=== PATIENT | female | born 1945 | race Caucasian/White ===

== ENCOUNTER 2023-01-16 09:10 | Outpatient (OUT) | payer MEDICARE, BC, SELFPAY ==
[2023-01-16 10:05] LABS: Basophils Absolute Auto 0.1 10^3/uL (0.0-0.1); Basophils Percent Auto 0.6 % (0.2-2.0); Eosinophils Absolute Auto 0.5 10^3/uL (0.0-0.7); Eosinophils Percent Auto 5.7 % (0.9-7.0); Hematocrit 38.7 % (36.0-48.0); Hemoglobin 12.1 g/dL (12.0-16.0); Immature Granulocytes Abs Auto 0.04 10^3/uL (0.00-0.03); Immature Granulocytes Pct Auto 0.5 % (0.0-0.5); Lymphocytes Absolute Auto 2.1 10^3/uL (1.2-3.8); Lymphocytes Percent Auto 25.4 % (20.5-60.0); Mean Corpuscular HGB Conc 31.3 g/dL (29.9-35.2); Mean Corpuscular Hemoglobin 28.9 pg (26.7-34.0); Mean Corpuscular Volume 92.6 fL (81.0-99.0); Mean Platelet Volume 9.2 fL (9.5-13.5); Monocytes Absolute Auto 0.6 10^3/uL (0.3-0.8); Monocytes Percent Auto 7.2 % (1.7-12.0); Neutrophils Percent Auto 60.6 % (43.0-75.0); Platelet Count 269 10^3/uL (150-450); Red Blood Count 4.18 10^6/uL (4.20-5.40); Red Cell Distribution Width 13.6 % (11.0-15.0); White Blood Count 8.2 10^3/uL (4.0-11.0)
[2023-01-16 10:21] LABS: Estimated Average Glucose 140 mg/dL; Glycohemoglobin A1C 6.5 % (4.5-6.2)
[2023-01-16 11:36] LABS: Alanine Aminotransferase 18 U/L (14-59); Anion Gap 8.7; Aspartate Amino Transferase 27 U/L (15-37); BUN Creatinine Ratio 18.6; Bilirubin Total 0.5 mg/dL (0.2-1.0); Calcium 9.3 mg/dL (8.5-10.1); Chloride 102 mmol/L (98-107); Estimated GFR (African America 39 (>=60); Estimated GFR (Non-African Ame 32 (>=60); Glucose 114 mg/dL (74-106); Potassium 3.7 mmol/L (3.5-5.1); Sodium 140 mmol/L (136-145)
[2023-01-16 11:37] LABS: Albumin Globulin Ratio 0.9; Albumin Level 3.6 g/dL (3.4-5.0); Alkaline Phosphatase 78 U/L (46-116); Globulin 4.1 g/dL; Total Protein 7.7 g/dL (6.4-8.2)
[2023-01-16 11:38] LABS: Chol HDL Ratio 3.4; Cholesterol 167 mg/dL (<=200); HDL Cholesterol 49 mg/dL (40-60); Thyroid Stimulating Hormone 3.766 uIU/mL (0.358-3.740); Triglycerides 181 mg/dL (<=150); VLDL CHOLESTEROL 36.2 mg/dL
[2023-01-16 12:28] LABS: Free T4 0.82 ng/dL (0.76-1.46)
== END 2023-01-16 09:11 | disposition home or self-care (01) ==
LOC: LAB 09:17
PROVIDERS: PCP Family Medicine; Visit Provider Family Medicine
DX: E78.00 Pure hypercholesterolemia, unspecified (principal); E11.9 Type 2 diabetes mellitus without complications; I10 Essential (primary) hypertension; Z13.29 Encounter for screening for other suspected endocrine disorder
CPT/HCPCS: 36415; 80053; 80061; 83036; 84439; 84443; 85025

== ENCOUNTER 2024-01-16 12:34 | Outpatient (OUT) | payer MEDICARE, BC, SELFPAY ==
[2024-01-16 13:09] LABS: Basophils Percent Auto 0.4 % (0.2-2.0); Eosinophils Absolute Auto 0.6 10^3/uL (0.0-0.7); Eosinophils Percent Auto 6.9 % (0.9-7.0); Hematocrit 33.1 % (36.0-48.0); Hemoglobin 10.1 g/dL (12.0-16.0); Immature Granulocytes Abs Auto 0.07 10^3/uL (0.00-0.03); Immature Granulocytes Pct Auto 0.8 % (0.0-0.5); Lymphocytes Absolute Auto 1.5 10^3/uL (1.2-3.8); Lymphocytes Percent Auto 17.5 % (20.5-60.0); Mean Corpuscular HGB Conc 30.5 g/dL (29.9-35.2); Mean Corpuscular Hemoglobin 26.9 pg (26.7-34.0); Mean Platelet Volume 9.3 fL (9.5-13.5); Monocytes Absolute Auto 0.5 10^3/uL (0.3-0.8); Monocytes Percent Auto 5.8 % (1.7-12.0); Neutrophils Absolute Auto 5.8 10^3/uL (1.4-6.5); Neutrophils Percent Auto 68.6 % (43.0-75.0); Platelet Count 337 10^3/uL (150-450); Red Blood Count 3.76 10^6/uL (4.20-5.40); Red Cell Distribution Width 15.5 % (11.0-15.0); White Blood Count 8.4 10^3/uL (4.0-11.0)
[2024-01-16 13:31] LABS: Estimated Average Glucose 140 mg/dL; Glycohemoglobin A1C 6.5 % (4.5-6.2)
[2024-01-16 14:40] LABS: Alanine Aminotransferase 16 U/L (14-59); Albumin Globulin Ratio 0.8; Albumin Level 3.2 g/dL (3.4-5.0); Alkaline Phosphatase 84 U/L (46-116); Anion Gap 10.9; Aspartate Amino Transferase 17 U/L (15-37); BUN Creatinine Ratio 16.6; Bilirubin Total 0.4 mg/dL (0.2-1.0); Calcium 9.3 mg/dL (8.5-10.1); Carbon Dioxide 30.3 mmol/L (21.0-32.0); Chloride 103 mmol/L (98-107); Chol HDL Ratio 2.9; Cholesterol 131 mg/dL (<=200); Estimated GFR (African America 40 (>=60 mL/min/1.73m^2); Estimated GFR (Non-African Ame 33 (>=60 mL/min/1.73m^2); Glucose 106 mg/dL (74-106); HDL Cholesterol 45 mg/dL (40-60); LDL Cholesterol Calculated 66.4 mg/dL; Potassium 4.2 mmol/L (3.5-5.1); Sodium 140 mmol/L (136-145); Thyroid Stimulating Hormone 5.083 uIU/mL (0.358-3.740); Total Protein 7.2 g/dL (6.4-8.2); Triglycerides 98 mg/dL (<=150); VLDL CHOLESTEROL 19.6 mg/dL
[2024-01-16 15:02] LABS: Free T4 0.79 ng/dL (0.76-1.46)
== END 2024-01-16 12:35 | disposition home or self-care (01) ==
LOC: LAB 12:38
PROVIDERS: PCP Family Medicine; Visit Provider Family Medicine
DX: I12.9 Hypertensive chronic kidney disease with stage 1 through stage 4 chronic kidney disease, or unspecified chronic kidney disease (principal); N18.9 Chronic kidney disease, unspecified; E78.00 Pure hypercholesterolemia, unspecified; E55.9 Vitamin D deficiency, unspecified; E11.9 Type 2 diabetes mellitus without complications; Z13.89 Encounter for screening for other disorder
CPT/HCPCS: 36415; 80053; 80061; 82306; 83036; 84439; 84443; 85025

== ENCOUNTER 2025-01-15 17:05 | Emergency (ER) | payer MEDICARE, BC, SELFPAY ==
--- OUTSIDE RECORDS SUMMARY | 2024-08-16 04:45 | XMS_ITS ---
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 Name Role Phone Ancelmo BOATENG, Agustin Primary Care Provider Unavail able Provider, Lab Unavailable [phone] Encounters Encounter Location Date Provider Diagnosis [facility] [address] [place] [address] 08/16/2024 Lab Provider Plan Of Treatment Next Appt Details Provider Name:Colt araiza, 06/06/2025 09:30:00 AM, [address], [place], [address], Progress Notes * ANGELKrissy KDOB: (79 yo F)Acc No.[id number]:08/16/2024 UNLOCKED PROGRESS NOTE Progress Note Patient: Krissy PASTOR :?Lab ProviderDOB:1945???Age:79 Y???Sex: FemaleDate:08/16/2024Phone:[phone]:[address] [id number]:Agustin Ag MD Subjective: * Chief Complaints: * [address] * Medical History: Objective: * Vitals: Assessment: Plan: * Treatment: * * Electronic signature of Lab Provider on 01/15/2025 at 06:02 PM ESTSign off status: PendingVisit Status:?Verified2 (Verified/Finalized) * Provider: Zoila hare Provider Date: 0 08/16/2024 Generated for Printing/Faxing/eTransmitting on:?01/15/2025 06:02 PM EST
--- OUTSIDE RECORDS SUMMARY | 2024-10-29 07:00 | XMS_ITS ---
Author Organization [facility] in [place] Address [address] [place] [address] Care Team Providers Care Material Clerk Name Role Phone Ancelmo BOATENG, Agustin Primary Care Provider Unavail Colt Hernandez Unavailable [phone] REASON FOR VISIT 6 month f/u testing TC Encounters Encounter Location Date Provider Diagnosis [facility] [address] [facility] [address] [place] [address] 10/29/2024 Colt Mills Plan Of Treatment Next Appt Details Provider Name:Colt araiza, 06/06/2025 09:30:00 AM, [address] [facility], [place], [address], Progress Notes * GRACIELA Krissy KDOB: 4 (79 yo F)Acc No.[id number]:10/29/2024 UNLOCKED PROGRESS NOTE Progress Note Patient: Krissy PASTOR :?Colt Mills MDDOB:1945???Age:79 Y ???Sex:FemaleDate:10/29/2024Phone:[phone]:[address] [id number]:Agustin Ag MD Subjective: * Chief Complaints: * 1 . 6 month f/u testing TC. * Medical History: Objective: * Vitals: Assessment: Plan: * Treatment: * * Electronic signature of Colt Mills MD on 01/15/2025 at 06:02 PM ESTSign off status: PendingVisit Status:?R/S By O/P (Rescheduled by Office/Provider) * Provider: Swapnil Mills MD Date: 0 10/29/2024 Generated for Printing/Faxing/eTransmitting on:?01/15/2025 06:02 PM EST
[2025-01-15] VITALS (48 sets, daily range): BP systolic 91–141; BP diastolic 46–74; PULSE 76–94; TEMP 36.3; O2SAT 80–100; BMI 36.0
--- NOTE | 2025-01-15 17:17 | CT_ITS ---
The [address] [address] Patient Name: LENY OWENS MRN: [id number] date: 1945 Sex: F Assigned Patient Location: ED.MAIN Current Patient Location: ED.MAIN Accession/Order Number: [id number] Exam Date: 01/15/2025 18:10 Report Date: 01/15/2025 19:06 At the request of: CAREN PANIAGUA Procedure: CT cervical spine wo con CT CERVICAL SPINE WITHOUT CONTRAST WITH 3D RECONSTRUCTIONS: CLINICAL HISTORY: fall with head injury COMPARISON: None TECHNIQUE: Spiral axial unenhanced images were obtained through the cervical spine. Sagittal, coronal and 3D volume-rendered reconstructions were also reviewed. This CT exam was performed using one or more following dose reduction techniques: Automated exposure control, adjustment of the mA and/or kV according to patient size, or use of iterative reconstruction technique. FINDINGS: No evidence acute fracture or malalignment. Vertebral heights preserved. Moderate severe disc space disease and endplate osteophytosis C5-C6. Minimal anterolisthesis C4-C5 2 to 3 mm. Otherwise [id number] disc space disease and uncovertebral spurring C3-C4. Multilevel facet arthropathy noted greatest left. Left upper lobe/apical opacity noted. An infectious inflammatory nodule or airspace disease measuring 1.4 x 0[address]/CT cervical spine wo con IMPRESSION: NO CERVICAL SPINE FRACTURE OVERALL MODERATE DEGENERATIVE CHANGES GREATEST C5-C6. LEFT UPPER LOBE PARENCHYMAL OPACITY OR NODULAR IDENTIFIED. CONSIDER FOLLOW-UP TO DOCUMENT RESOLUTION. Impression dictated by: Kodak Trejo M.D. 01/15/2025 7:06 PM Dictation Location: [place] [address] Electronically authenticated by: [id number] Y Date: 01/15/2025 19:06
--- NOTE | 2025-01-15 17:17 | ECG_ITS ---
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 Measurements Intervals [place] Rate: 80 P: 75 NH: 194 QRS: 48 QRSD: 100 T: 35 QT: 378 QTc: 414 Interpretive Statements 1100 Sinus rhythm 4068 Nonspecific Twave abnormality 9130 borderline ECG No previous ECG available for comparison Electronically Signed On 01-15-2025 19:09:33 EST by GABBY QUINTANA M.D.
--- NOTE | 2025-01-15 17:17 | CT_ITS ---
The [address] [address] Patient Name: LENY OWENS MRN: [id number] date: 1945 Sex: F Assigned Patient Location: ED.MAIN Current Patient Location: ED.MAIN Accession/Order Number: [id number] Exam Date: 01/15/2025 18:10 Report Date: 01/15/2025 18:59 At the request of: CAREN PANIAGUA Procedure: CT head/brain wo con CT BRAIN WITHOUT CONTRAST: CLINICAL HISTORY: fall head injury COMPARISON: None TECHNIQUE: Contiguous axial unenhanced images were obtained through the brain. This CT exam was performed using one or more following dose reduction techniques: Automated exposure control, adjustment of the mA and/or kV according to patient size, or use of iterative reconstruction technique. FINDINGS: There is no evidence of midline shift, intra or extra-axial fluid collection, hemorrhage or CT evidence of of acute large vascular lesion stroke. Central involutional changes. Mild to moderate chronic small vessel ischemic disease. There are vascular there There are vascular calcifications identified. 1 cm pineal cyst. Visualized intraorbital contents appear unremarkable. Visualized paranasal sinuses are clear. The surrounding soft tissues are normal. CT/CT head/brain wo con IMPRESSION: NO ACUTE INTRACRANIAL ABNORMALITY. CHRONIC SMALL VESSEL CHANGES. Impression dictated by: Kodak Trejo M.D. 01/15/2025 6:59 PM Dictation Location: [place] [address] Electronically authenticated by: [id number] Y Date: 01/15/2025 18:59
--- NOTE | 2025-01-15 17:17 | XR_ITS ---
The [address] [address] Patient Name: LENY OWENS MRN: [id number] date: 1945 Sex: F Assigned Patient Location: ED.MAIN Current Patient Location: ED.MAIN Accession/Order Number: [id number] Exam Date: 01/15/2025 18:10 Report Date: 01/15/2025 19:18 At the request of: CAREN PANIAGUA Procedure: XR chest 1V PA CHEST: CLINICAL HISTORY: cough COMPARISON: None Mildly enlarged cardiomediastinal silhouette. Minor parenchymal opacities may raise possibility for CHF. Otherwise no airspace disease effusion or pneumothorax. XR/XR chest 1V IMPRESSION: SUSPECTED MINOR CENTRAL CONGESTION. OTHERWISE NEGATIVE ACUTE AIRSPACE DISEASE. Impression dictated by: Kodak Trejo M.D. 01/15/2025 7:18 PM Dictation Location: [place] [address] Electronically authenticated by: [id number] Y Date: 01/15/2025 19:18
--- NOTE | 2025-01-15 17:24 | ED.GENADUL1 ---
Documented by User: SIVA Hayes 01/15/25 19:57 HPI HPI - General Adult General Chief complaint: Fall Stated complaint: WEAKNESS Time Seen by Provider: 01/15/25 17:12 Source: patient Mode of arrival: ambulance Limitations: no limitations History of Present Illness HPI narrative: Patient is a 79-year-old female who presents via EMS for evaluation of generalized weakness and multiple falls. Patient alert and oriented to person and place. She was reported to have a fall at home where she lives with her and required assistance to stand but refused to be evaluated at that time. She fell again this afternoon reportedly striking her head. The patient does not recall hitting her head, and denies any headache. She admits to feeling generally weak but denies pain other than soreness in her left labial region. Patient does not report any fevers or chills with discussion at the bedside I am concerned that she is a somewhat poor historian in the short term events but she acknowledges that she has not taken her diuretic pills in the last 4 days and has been experiencing some shortness of breath with associated cough and congestion. Patient denies any nausea vomiting or diarrhea. She is reported to be a full code. Location: Reports head and genitals (left labia) Related Data Home Medications ?Medication ?Instructions ?Recorded ?Confirmed aspirin 81 mg tablet,delayed 81 mg PO DAILY 01/15/25 01/15/25 release (Adult Low Dose Aspirin) cholecalciferol (vitamin D3) 50 50 mcg PO DAILY 01/15/25 01/15/25 mcg (2,000 unit) tablet (Vitamin D3) furosemide 40 mg tablet 40 mg PO QDAY 01/15/25 01/15/25 loratadine 10 mg tablet (Claritin) 10 mg PO DAILY 01/15/25 01/15/25 metformin 500 mg tablet,extended 500 mg PO QDAY 01/15/25 01/15/25 release 24 hr sertraline 50 mg tablet 50 mg PO QDAY 01/15/25 01/15/25 simvastatin 20 mg tablet 20 mg PO QDAY 01/15/25 01/15/25 Allergies Allergy/AdvReac Type Severity Reaction Status Date / Time No Known Drug Allergies Allergy Verified 01/15/25 17:07 Review of Systems ROS Constitutional Denies: fever or chills Eyes Denies: change in vision or blurry vision Cardiovascular Reports: edema and swelling of feet/ankles; Denies: chest pain or palpitations Respiratory Reports: shortness of breath, cough and chest congestion; Denies: coughing up blood Gastrointestinal Reports: other (pt reports black stool in the past . family confirms recent BMS are brown, ); Denies: abdominal pain, nausea, vomiting or diarrhea Genitourinary Denies: painful urination or urinary frequency Musculoskeletal Denies: back pain, neck pain or extremity pain Integumentary/Breast Reports: other (Abscess left labia) Neurological Denies: headache or numbness in extremities Psychiatric Denies: anxiety or mood swings PFSH PFSH Social History Little interest or pleasure in doing things: not at all Feeling down, depressed, or hopeless: not at all Exam Narrative Exam Narrative: Nurses note and vital signs reviewed and patient is hypoxic. General: The patient appears well and in no apparent distress. Patient is resting comfortably on cart. GCS = 15. Skin: Warm, dry, no pallor noted. No evidence of rash. Patient has an 2.5cm by 2 cm firm abscess to the left labia that has multiple circular openings with proteinaceous material around the rim as if it drained but not actively draining. The nurse did note there was some discharge on her undergarment upon arrival. I do not appreciate any erythema in the groin fold but patient does have a prominent pannus. The area is notably tender to touch Head: Normocephalic, atraumatic, Neck: Supple, trachea mid-line, no tenderness, no lymphadenopathy. Full ROM and no cervical spinal tenderness. The patient has no step-offs or crepitus noted Eyes: PERRLA, EOMI, subconjunctival pallor ENT: External inspection unremarkable Cardiovascular: Regular Rate and Rhythm Respiratory: Patient is speaking in full sentences there is slight expiratory wheeze and more rhonchorous lung sounds in the left lower lung field. Chest Wall: no tenderness, no flail chest, contusion, abrasion, or signs of trauma. Back: Back has no evidence of trauma, including contusion, abrasion, swelling or ecchymosis. The patient had no evidence of step-offs or creptitace noted. No tenderness to palpation. Negative straight leg raise bilaterally. Musculoskeletal: normal ROM, no tenderness, 1+ edema bilateral mildly pitting appears chronic . pulses at femoral, DP, PT, and popiteal were 2+ bilaterally. Moves all four extremities in all modalities with 5/5 strength. induration right anterior groin from possible prior vascular surgeries/ GI: Normal bowel sounds, no tenderness to palpation, No rebound, guarding, or rigidity noted. Rectal: Good rectal tone: brown soft stool. no gross blood. noninflamed hemorrhoid. Neurological: Alert and oriented person place and recent events that she fell. Psychiatric: Cooperative, smilling. Constitutional Vital Signs, click to edit/add: Last Vital Signs Temp 97.4 F L 01/15/25 17:08 Pulse 83 01/15/25 21:38 Resp 24 H 01/15/25 21:38 BP 111/67 01/15/25 19:14 Pulse Ox 98 01/15/25 21:38 O2 Del Method Simple Mask 01/15/25 21:38 O2 Flow Rate 6 01/15/25 21:38 Course Vital Signs Vital signs: Vital Signs Temperature 97.4 F L 01/15/25 17:08 Pulse Rate 82 01/15/25 17:08 Respiratory Rate 18 01/15/25 17:08 Blood Pressure 93/46 L 01/15/25 17:08 Pulse Oximetry 88 L 01/15/25 17:08 Oxygen Delivery Method Room Air 01/15/25 17:08 Temperature 97.4 F L 01/15/25 17:08 Pulse Rate 83 01/15/25 21:38 Respiratory Rate 24 H 01/15/25 21:38 Blood Pressure 111/67 01/15/25 19:14 Pulse Oximetry 98 01/15/25 21:38 Oxygen Delivery Method Simple Mask 01/15/25 21:38 Oxygen Delivery Flow Rate 6 01/15/25 21:38 Medical Decision Making [facility] Narrative Medical decision making narrative: Patient presents to the ER with generalized weakness and fall x 2 at home there is evidence of hypoxia shortness of breath on exertion patient admits that she feels generally weak. only estimated to be on ground for 30 mins this am. There was reported head injury with her second fall and a CT will be performed of her head and neck. Her mentation appears grossly baseline. She is mildly hypotensive and we given 1 L fluid bolus IV challenge but we will hold on additional fluid as she has been off her diuretic pill for the past 4 days with some fluid retention noted. She does have prominent left lung sounds concerning for possible pneumonia or fluid retention patient also has evidence of a left external labial abscess that has been opened and drained with notable tenderness and induration at the base, given the possibility for sepsis or infectious source as this has been going on for an undetermined period of time a wound culture will be obtained and further imaging will be conducted to rule out any type of fistula or other concern such as necrotizing fasciitis. We will monitor patient's preliminary labs and response to 1 L fluid challenge. Patient was noted to be 88% on room air, she is not reported to be on home oxygen and was able to achieve 95% on 2 L nasal cannula. We also will attempt a DuoNeb treatment. Blood cult x2 taken. Patient's daughter at the bedside, reports patient did take her water pill today she had not taken it the preceding days because it makes her pee more. She is definitely more weaker today per daughter at the bedside. She expressed concerns that she has had prior rupture of her abdominal aortic aneurysm with repair at [facility] x 2. And at her last follow-up 6 weeks ago advised that the aneurysm was again leaking but they recommended a 6-month follow-up because surgery would be significantly invasive. acute kidney unable to get IV contrast studies in the setting of current risk/ benefits with known history, Non contrast study obtained of Abdomen and pelvis. Fecal occult blood was negative. Medical Records Medical records reviewed: Yes I reviewed the patient's medical records Lab Data Lab results reviewed: Yes I reviewed the patient's lab results Labs: Lab Results 01/15/25 01/15/25 01/15/25 Range/Units 17:33 17:41 18:10 WBC 14.0 H (4.0-11.0) 10^3/uL RBC 3.55 L (4.20-5.40) 10^6/uL Hgb 8.6 L (12.0-16.0) g/dL Hct 27.5 L (36.0-48.0) % MCV 77.5 L (81.0-99.0) fL MCH 24.2 L (26.7-34.0) pg MCHC 31.3 (29.9-35.2) g/dL RDW 17.8 H (11.0-15.0) % Plt Count 168 (150-450) 10^3/uL MPV 10.9 (9.5-13.5) fL Neut % (Auto) 92.7 H (43.0-75.0) % Lymph % (Auto) 3.1 L (20.5-60.0) % [place] % (Auto) 3.2 (1.7-12.0) % Eos % (Auto) 0.0 L (0.9-7.0) % Baso % (Auto) 0.1 L (0.2-2.0) % Neut # (Auto) 13.0 H (1.4-6.5) 10^3/uL Lymph # (Auto) 0.4 L (1.2-3.8) 10^3/uL [place] # (Auto) 0.5 (0.3-0.8) 10^3/uL Eos # (Auto) 0.0 (0.0-0.7) 10^3/uL Baso # (Auto) 0.0 (0.0-0.1) 10^3/uL Abs Immat Gran (auto) 0.12 H (0.00-0.03) 10^3/uL Imm/Tot Granulo (auto) 0.9 H (0.0-0.5) % PT 13.2 H (9.0-11.6) sec INR 1.28 APTT 34.1 (22.3-36.2) sec Sodium 128 L (136-145) mmol/L Potassium 3.7 (3.5-5.1) mmol/L Chloride 94 L (98-107) mmol/L Carbon Dioxide 23.6 (21.0-32.0) mmol/L Anion Gap 14.1 BUN 46.0 H (7.0-18.0) mg/dL Creatinine 2.46 H (0.55-1.02) mg/dL Est GFR ( Amer) 23 L (>=60 mL/min/1.73m^2) Est GFR (Non-Af Amer) 19 L (>=60 mL/min/1.73m^2) BUN/Creatinine Ratio 18.7 Glucose 154 H (74-106) mg/dL Lactate 1.8 (0.4-2.0) mmol/L Calcium 8.5 (8.5-10.1) mg/dL Total Bilirubin 1.1 H (0.2-1.0) mg/dL AST 129 H (15-37) U/L ALT 48 (14-59) U/L Alkaline Phosphatase 83 (46-116) U/L Total Creatine Kinase 1038 H* (26-192) U/L CK-MB (CK-2) 5.36 H* (<=3.60) ng/mL Myoglobin 2853 H* (9-82) ng/mL Troponin I High Sens 389.0 H* (4.0-51.3) pg/mL NT-Pro-B Natriuret Pep >99395.0 H* (<=1800.0) pg/mL Total Protein 6.7 (6.4-8.2) g/dL Albumin 2.7 L (3.4-5.0) g/dL Globulin 4.0 g/dL Albumin/Globulin Ratio 0.7 Urine Color Dk. yellow (YELLOW) Urine Clarity Clear (CLEAR) Urine pH 7.0 (5.0-9.0) Ur Specific Jackson 1.020 (1.005-1.025) Urine Protein 100 A (NEG/TRACE) mg/dL Urine Glucose (UA) Negative (NEGATIVE) mg/dL Urine Ketones Negative (NEGATIVE) mg/dL Urine Occult Blood Negative (NEGATIVE) Urine Nitrite Negative (NEGATIVE) Urine Bilirubin Small A (NEGATIVE) Urine Urobilinogen 2.0 A (0.2-1.0) EU/dL Ur Leukocyte Esterase Negative (NEGATIVE) Urine RBC 0-2 (0-2) #/HPF Urine WBC 0-2 A (NONE SEEN) #/HPF Ur Squamous Epith Cells Few A (NONE/RARE) #/LPF Urine Crystals None seen (None Seen) #/HPF Urine Bacteria Small A (NONE SEEN) #/HPF Urine Casts None seen (NONE SEEN) #/LPF Urine Mucus None seen (NONE SEEN) Ur Culture Indicated? Yes-[facility] Stool Occult Blood Influenza Type A Ag Negative Influenza Type B Ag Negative SARS-CoV-2 Ag (CV2AG) Negative (NEGATIVE) Blood Type A Positive Antibody Screen Negative 01/15/25 01/15/25 Range/Units 18:45 18:55 WBC (4.0-11.0) 10^3/uL RBC (4.20-5.40) 10^6/uL Hgb (12.0-16.0) g/dL Hct (36.0-48.0) % MCV (81.0-99.0) fL MCH (26.7-34.0) pg MCHC (29.9-35.2) g/dL RDW (11.0-15.0) % Plt Count (150-450) 10^3/uL MPV (9.5-13.5) fL Neut % (Auto) (43.0-75.0) % Lymph % (Auto) (20.5-60.0) % [place] % (Auto) (1.7-12.0) % Eos % (Auto) (0.9-7.0) % Baso % (Auto) (0.2-2.0) % Neut # (Auto) (1.4-6.5) 10^3/uL Lymph # (Auto) (1.2-3.8) 10^3/uL [place] # (Auto) (0.3-0.8) 10^3/uL Eos # (Auto) (0.0-0.7) 10^3/uL Baso # (Auto) (0.0-0.1) 10^3/uL Abs Immat Gran (auto) (0.00-0.03) 10^3/uL Imm/Tot Granulo (auto) (0.0-0.5) % PT (9.0-11.6) sec INR APTT (22.3-36.2) sec Sodium (136-145) mmol/L Potassium (3.5-5.1) mmol/L Chloride (98-107) mmol/L Carbon Dioxide (21.0-32.0) mmol/L Anion Gap BUN (7.0-18.0) mg/dL Creatinine (0.55-1.02) mg/dL Est GFR ( Amer) (>=60 mL/min/1.73m^2) Est GFR (Non-Af Amer) (>=60 mL/min/1.73m^2) BUN/Creatinine Ratio Glucose (74-106) mg/dL Lactate (0.4-2.0) mmol/L Calcium (8.5-10.1) mg/dL Total Bilirubin (0.2-1.0) mg/dL AST (15-37) U/L ALT (14-59) U/L Alkaline Phosphatase (46-116) U/L Total Creatine Kinase (26-192) U/L CK-MB (CK-2) (<=3.60) ng/mL Myoglobin (9-82) ng/mL Troponin I High Sens 466.9 H* (4.0-51.3) pg/mL NT-Pro-B Natriuret Pep (<=1800.0) pg/mL Total Protein (6.4-8.2) g/dL Albumin (3.4-5.0) g/dL Globulin g/dL Albumin/Globulin Ratio Urine Color (YELLOW) Urine Clarity (CLEAR) Urine pH (5.0-9.0) Ur Specific Jackson (1.005-1.025) Urine Protein (NEG/TRACE) mg/dL Urine Glucose (UA) (NEGATIVE) mg/dL Urine Ketones (NEGATIVE) mg/dL Urine Occult Blood (NEGATIVE) Urine Nitrite (NEGATIVE) Urine Bilirubin (NEGATIVE) Urine Urobilinogen (0.2-1.0) EU/dL Ur Leukocyte Esterase (NEGATIVE) Urine RBC (0-2) #/HPF Urine WBC (NONE SEEN) #/HPF Ur Squamous Epith Cells (NONE/RARE) #/LPF Urine Crystals (None Seen) #/HPF Urine Bacteria (NONE SEEN) #/HPF Urine Casts (NONE SEEN) #/LPF Urine Mucus (NONE SEEN) Ur Culture Indicated? Stool Occult Blood Negative Influenza Type A Ag Influenza Type B Ag SARS-CoV-2 Ag (CV2AG) (NEGATIVE) Blood Type Antibody Screen Imaging Data CT scan - head: Radiologist's impression: ITS Impressions Cervical Spine CT 01/15/25 17:17 IMPRESSION: NO CERVICAL SPINE FRACTURE OVERALL MODERATE DEGENERATIVE CHANGES GREATEST C5-C6. LEFT UPPER LOBE PARENCHYMAL OPACITY OR NODULAR IDENTIFIED. CONSIDER FOLLOW-UP TO DOCUMENT RESOLUTION. Impression dictated by: Kodak Trejo M.D. 01/15/2025 7:06 PM Dictation Location: [place] [id number] Electronically authenticated by: [id number] Y Date: 01/15/2025 19:06 Chest X-Ray 01/15/25 17:17 IMPRESSION: SUSPECTED MINOR CENTRAL CONGESTION. OTHERWISE NEGATIVE ACUTE AIRSPACE DISEASE. Impression dictated by: Kodak Trejo M.D. 01/15/2025 7:18 PM Dictation Location: [facility]--29 Electronically authenticated by: [id number] Y Date: 01/15/2025 19:[address] 01/15/25 17:17 IMPRESSION: NO ACUTE INTRACRANIAL ABNORMALITY. CHRONIC SMALL VESSEL CHANGES. Impression dictated by: Kodak Trejo M.D. 01/15/2025 6:59 PM Dictation Location: [facility]formerly known [facility] Electronically authenticated by: [id number] Y Date: 01/15/2025 18:59 ECG Data Attestation: I personally reviewed and interpreted this ECG as follows: Interpretation: Prelim EKG interpretation: normal sinus rhythm 80 bpm, no ectopy, no ST segment elevation, normal axis. Discharge Plan Discharge Chief Complaint: Fall Clinical Impression: Rhabdomyolysis, CHF (congestive heart failure), Elevated troponin, Hyponatremia, Leaking abdominal aortic aneurysm, Anemia, Abscess of left genital labia, Emphysema, unspecified, Acute kidney injury Patient Disposition: [facility] Time of Disposition Decision: 19:41 Discharge Location: [facility] Documented by User: Kj Campos 01/15/25 21:47 HPI HPI - General Adult General Chief complaint: Fall Stated complaint: WEAKNESS Time Seen by Provider: 01/15/25 17:12 Related Data Home Medications ?Medication ?Instructions ?Recorded ?Confirmed aspirin 81 mg tablet,delayed 81 mg PO DAILY 01/15/25 01/15/25 release (Adult Low Dose Aspirin) cholecalciferol (vitamin D3) 50 50 mcg PO DAILY 01/15/25 01/15/25 mcg (2,000 unit) tablet (Vitamin D3) furosemide 40 mg tablet 40 mg PO QDAY 01/15/25 01/15/25 loratadine 10 mg tablet (Claritin) 10 mg PO DAILY 01/15/25 01/15/25 metformin 500 mg tablet,extended 500 mg PO QDAY 01/15/25 01/15/25 release 24 hr sertraline 50 mg tablet 50 mg PO QDAY 01/15/25 01/15/25 simvastatin 20 mg tablet 20 mg PO QDAY 01/15/25 01/15/25 Allergies Allergy/AdvReac Type Severity Reaction Status Date / Time No Known Drug Allergies Allergy Verified 01/15/25 17:07 PFSH PFSH Social History Little interest or pleasure in doing things: not at all Feeling down, depressed, or hopeless: not at all Exam Constitutional Vital Signs, click to edit/add: Last Vital Signs Temp 97.4 F L 01/15/25 17:08 Pulse 83 01/15/25 21:38 Resp 24 H 01/15/25 21:38 BP 111/67 01/15/25 19:14 Pulse Ox 98 01/15/25 21:38 O2 Del Method Simple Mask 01/15/25 21:38 O2 Flow Rate 6 01/15/25 21:38 Course Vital Signs Vital signs: Vital Signs Temperature 97.4 F L 01/15/25 17:08 Pulse Rate 82 01/15/25 17:08 Respiratory Rate 18 01/15/25 17:08 Blood Pressure 93/46 L 01/15/25 17:08 Pulse Oximetry 88 L 01/15/25 17:08 Oxygen Delivery Method Room Air 01/15/25 17:08 Temperature 97.4 F L 01/15/25 17:08 Pulse Rate 83 01/15/25 21:38 Respiratory Rate 24 H 01/15/25 21:38 Blood Pressure 111/67 01/15/25 19:14 Pulse Oximetry 98 01/15/25 21:38 Oxygen Delivery Method Simple Mask 01/15/25 21:38 Oxygen Delivery Flow Rate 6 01/15/25 21:38 Medical Decision Making [facility] Narrative Medical decision making narrative: Patient presents to the ER with generalized weakness and fall x 2 at home there is evidence of hypoxia shortness of breath on exertion patient admits that she feels generally weak. only estimated to be on ground for 30 mins this am. There was reported head injury with her second fall and a CT will be performed of her head and neck. Her mentation appears grossly baseline. She is mildly hypotensive and we given 1 L fluid bolus IV challenge but we will hold on additional fluid as she has been off her diuretic pill for the past 4 days with some fluid retention noted. She does have prominent left lung sounds concerning for possible pneumonia or fluid retention patient also has evidence of a left external labial abscess that has been opened and drained with notable tenderness and induration at the base, given the possibility for sepsis or infectious source as this has been going on for an undetermined period of time a wound culture will be obtained and further imaging will be conducted to rule out any type of fistula or other concern such as necrotizing fasciitis. We will monitor patient's preliminary labs and response to 1 L fluid challenge. Patient was noted to be 88% on room air, she is not reported to be on home oxygen and was able to achieve 95% on 2 L nasal cannula. We also will attempt a DuoNeb treatment. Blood cult x2 taken. Patient's daughter at the bedside, reports patient did take her water pill today she had not taken it the preceding days because it makes her pee more. She is definitely more weaker today per daughter at the bedside. She expressed concerns that she has had prior rupture of her abdominal aortic aneurysm with repair at [facility] x 2. And at her last follow-up 6 weeks ago advised that the aneurysm was again leaking but they recommended a 6-month follow-up because surgery would be significantly invasive. acute kidney unable to get IV contrast studies in the setting of current risk/ benefits with known history, Non contrast study obtained of Abdomen and pelvis. Fecal occult blood was negative. Patient was found to have elevated CK, elevated CK-MB, elevated myoglobin, consistent with acute rhabdomyolysis -in addition to elevated BUN/creatinine consistent with acute kidney injury. Attending physician note -the PA assigned patient out to in at 8 PM. Due to the prior affiliation with [facility] in [place], the patient's family was requested to be transferred to that facility since she is not able to stay at this facility due to the leaking abdominal aneurysm that would not be able to be treated here should she deteriorate. Additionally we lack renal coverage. I spoke with the hospitalist on-call, Dr. Mccloud, who accept this patient's transfer to their facility after we discussed the patient's multiple diagnoses and issues. Once bed assignment was obtained, arrangements were made for the patient be transported by ambulance to [facility]. Family is agreeable to this transfer. Of note, when the patient fell asleep, her oxygenation decreased. We put her on a simple mask and gave her an albuterol treatment. Additionally I gave her an IV dose of Solu-Medrol 125 mg due to her smoking history and possible history of COPD. Patient tolerated treatment well and was stable for transfer. - DO Isabella Lab Data Labs: Lab Results 01/15/25 01/15/25 01/15/25 Range/Units 17:33 17:41 18:10 WBC 14.0 H (4.0-11.0) 10^3/uL RBC 3.55 L (4.20-5.40) 10^6/uL Hgb 8.6 L (12.0-16.0) g/dL Hct 27.5 L (36.0-48.0) % MCV 77.5 L (81.0-99.0) fL MCH 24.2 L (26.7-34.0) pg MCHC 31.3 (29.9-35.2) g/dL RDW 17.8 H (11.0-15.0) % Plt Count 168 (150-450) 10^3/uL MPV 10.9 (9.5-13.5) fL Neut % (Auto) 92.7 H (43.0-75.0) % Lymph % (Auto) 3.1 L (20.5-60.0) % [place] % (Auto) 3.2 (1.7-12.0) % Eos % (Auto) 0.0 L (0.9-7.0) % Baso % (Auto) 0.1 L (0.2-2.0) % Neut # (Auto) 13.0 H (1.4-6.5) 10^3/uL Lymph # (Auto) 0.4 L (1.2-3.8) 10^3/uL [place] # (Auto) 0.5 (0.3-0.8) 10^3/uL Eos # (Auto) 0.0 (0.0-0.7) 10^3/uL Baso # (Auto) 0.0 (0.0-0.1) 10^3/uL Abs Immat Gran (auto) 0.12 H (0.00-0.03) 10^3/uL Imm/Tot Granulo (auto) 0.9 H (0.0-0.5) % PT 13.2 H (9.0-11.6) sec INR 1.28 APTT 34.1 (22.3-36.2) sec Sodium 128 L (136-145) mmol/L Potassium 3.7 (3.5-5.1) mmol/L Chloride 94 L (98-107) mmol/L Carbon Dioxide 23.6 (21.0-32.0) mmol/L Anion Gap 14.1 BUN 46.0 H (7.0-18.0) mg/dL Creatinine 2.46 H (0.55-1.02) mg/dL Est GFR ( Amer) 23 L (>=60 mL/min/1.73m^2) Est GFR (Non-Af Amer) 19 L (>=60 mL/min/1.73m^2) BUN/Creatinine Ratio 18.7 Glucose 154 H (74-106) mg/dL Lactate 1.8 (0.4-2.0) mmol/L Calcium 8.5 (8.5-10.1) mg/dL Total Bilirubin 1.1 H (0.2-1.0) mg/dL AST 129 H (15-37) U/L ALT 48 (14-59) U/L Alkaline Phosphatase 83 (46-116) U/L Total Creatine Kinase 1038 H* (26-192) U/L CK-MB (CK-2) 5.36 H* (<=3.60) ng/mL Myoglobin 2853 H* (9-82) ng/mL Troponin I High Sens 389.0 H* (4.0-51.3) pg/mL NT-Pro-B Natriuret Pep >94771.0 H* (<=1800.0) pg/mL Total Protein 6.7 (6.4-8.2) g/dL Albumin 2.7 L (3.4-5.0) g/dL Globulin 4.0 g/dL Albumin/Globulin Ratio 0.7 Urine Color Dk. yellow (YELLOW) Urine Clarity Clear (CLEAR) Urine pH 7.0 (5.0-9.0) Ur Specific Jackson 1.020 (1.005-1.025) Urine Protein 100 A (NEG/TRACE) mg/dL Urine Glucose (UA) Negative (NEGATIVE) mg/dL Urine Ketones Negative (NEGATIVE) mg/dL Urine Occult Blood Negative (NEGATIVE) Urine Nitrite Negative (NEGATIVE) Urine Bilirubin Small A (NEGATIVE) Urine Urobilinogen 2.0 A (0.2-1.0) EU/dL Ur Leukocyte Esterase Negative (NEGATIVE) Urine RBC 0-2 (0-2) #/HPF Urine WBC 0-2 A (NONE SEEN) #/HPF Ur Squamous Epith Cells Few A (NONE/RARE) #/LPF Urine Crystals None seen (None Seen) #/HPF Urine Bacteria Small A (NONE SEEN) #/HPF Urine Casts None seen (NONE SEEN) #/LPF Urine Mucus None seen (NONE SEEN) Ur Culture Indicated? Yes-[facility] Stool Occult Blood Influenza Type A Ag Negative Influenza Type B Ag Negative SARS-CoV-2 Ag (CV2AG) Negative (NEGATIVE) Blood Type A Positive Antibody Screen Negative 01/15/25 01/15/25 Range/Units 18:45 18:55 WBC (4.0-11.0) 10^3/uL RBC (4.20-5.40) 10^6/uL Hgb (12.0-16.0) g/dL Hct (36.0-48.0) % MCV (81.0-99.0) fL MCH (26.7-34.0) pg MCHC (29.9-35.2) g/dL RDW (11.0-15.0) % Plt Count (150-450) 10^3/uL MPV (9.5-13.5) fL Neut % (Auto) (43.0-75.0) % Lymph % (Auto) (20.5-60.0) % [place] % (Auto) (1.7-12.0) % Eos % (Auto) (0.9-7.0) % Baso % (Auto) (0.2-2.0) % Neut # (Auto) (1.4-6.5) 10^3/uL Lymph # (Auto) (1.2-3.8) 10^3/uL [place] # (Auto) (0.3-0.8) 10^3/uL Eos # (Auto) (0.0-0.7) 10^3/uL Baso # (Auto) (0.0-0.1) 10^3/uL Abs Immat Gran (auto) (0.00-0.03) 10^3/uL Imm/Tot Granulo (auto) (0.0-0.5) % PT (9.0-11.6) sec INR APTT (22.3-36.2) sec Sodium (136-145) mmol/L Potassium (3.5-5.1) mmol/L Chloride (98-107) mmol/L Carbon Dioxide (21.0-32.0) mmol/L Anion Gap BUN (7.0-18.0) mg/dL Creatinine (0.55-1.02) mg/dL Est GFR ( Amer) (>=60 mL/min/1.73m^2) Est GFR (Non-Af Amer) (>=60 mL/min/1.73m^2) BUN/Creatinine Ratio Glucose (74-106) mg/dL Lactate (0.4-2.0) mmol/L Calcium (8.5-10.1) mg/dL Total Bilirubin (0.2-1.0) mg/dL AST (15-37) U/L ALT (14-59) U/L Alkaline Phosphatase (46-116) U/L Total Creatine Kinase (26-192) U/L CK-MB (CK-2) (<=3.60) ng/mL Myoglobin (9-82) ng/mL Troponin I High Sens 466.9 H* (4.0-51.3) pg/mL NT-Pro-B Natriuret Pep (<=1800.0) pg/mL Total Protein (6.4-8.2) g/dL Albumin (3.4-5.0) g/dL Globulin g/dL Albumin/Globulin Ratio Urine Color (YELLOW) Urine Clarity (CLEAR) Urine pH (5.0-9.0) Ur Specific Jackson (1.005-1.025) Urine Protein (NEG/TRACE) mg/dL Urine Glucose (UA) (NEGATIVE) mg/dL Urine Ketones (NEGATIVE) mg/dL Urine Occult Blood (NEGATIVE) Urine Nitrite (NEGATIVE) Urine Bilirubin (NEGATIVE) Urine Urobilinogen (0.2-1.0) EU/dL Ur Leukocyte Esterase (NEGATIVE) Urine RBC (0-2) #/HPF Urine WBC (NONE SEEN) #/HPF Ur Squamous Epith Cells (NONE/RARE) #/LPF Urine Crystals (None Seen) #/HPF Urine Bacteria (NONE SEEN) #/HPF Urine Casts (NONE SEEN) #/LPF Urine Mucus (NONE SEEN) Ur Culture Indicated? Stool Occult Blood Negative Influenza Type A Ag Influenza Type B Ag SARS-CoV-2 Ag (CV2AG) (NEGATIVE) Blood Type Antibody Screen Imaging Data CT scan - head: Radiologist's impression: ITS Impressions Cervical Spine CT 01/15/25 17:17 IMPRESSION: NO CERVICAL SPINE FRACTURE OVERALL MODERATE DEGENERATIVE CHANGES GREATEST C5-C6. LEFT UPPER LOBE PARENCHYMAL OPACITY OR NODULAR IDENTIFIED. CONSIDER FOLLOW-UP TO DOCUMENT RESOLUTION. Impression dictated by: Kodak Trejo M.D. 01/15/2025 7:06 PM Dictation Location: [facility] Electronically authenticated by: [id number] Y Date: 01/15/2025 19:06 Chest X-Ray 01/15/25 17:17 IMPRESSION: SUSPECTED MINOR CENTRAL CONGESTION. OTHERWISE NEGATIVE ACUTE AIRSPACE DISEASE. Impression dictated by: Kodak Trejo M.D. 01/15/2025 7:18 PM Dictation Location: [facility] Electronically authenticated by: [id number] Y Date: 01/15/2025 19:[address] 01/15/25 17:17 IMPRESSION: NO ACUTE INTRACRANIAL ABNORMALITY. CHRONIC SMALL VESSEL CHANGES. Impression dictated by: Kodak Trejo M.D. 01/15/2025 6:59 PM Dictation Location: [facility] Electronically authenticated by: [id number] Y Date: 01/15/2025 18:59 Discharge Plan Discharge Chief Complaint: Fall Clinical Impression: Rhabdomyolysis, CHF (congestive heart failure), Elevated troponin, Hyponatremia, Leaking abdominal aortic aneurysm, Anemia, Abscess of left genital labia, Emphysema, unspecified, Acute kidney injury Patient Disposition: [facility] Time of Disposition Decision: 19:41 Discharge Location: [facility]
[2025-01-15] MEDS: 0.9 % SODIUM CHLORIDE 1,000 ML 999 ML IV (17:47)
--- NOTE | 2025-01-15 17:48 | CT_ITS ---
The [address] [address] Patient Name: LENY OWENS MRN: [id number] date: 1945 Sex: F Assigned Patient Location: ED.MAIN Current Patient Location: ED.MAIN Accession/Order Number: [id number] Exam Date: 01/15/2025 18:10 Report Date: 01/15/2025 19:18 At the request of: CAREN PANIAGUA Procedure: CT abdomen pelvis wo con CT ABDOMEN AND PELVIS WITHOUT INTRAVENOUS CONTRAST: CLINICAL HISTORY: History aneurysm , known leak, groin abscess COMPARISON: 08/26/2015 TECHNIQUE: Spiral images were obtained through the abdomen and pelvis without intravenous contrast. This CT exam was performed using one or more following dose reduction techniques: Automated exposure control, adjustment of the mA and/or kV according to patient size, or use of iterative reconstruction technique. FINDINGS: Motion degradation. Right lower lobe nodule 1 cm size. Lung bases grossly clear with minimal bibasilar atelectasis or scarring. Cardiomegaly. Coronary disease. Small hiatal hernia. Evaluation degraded due to lack contrast. Suspected layering sludge within the gallbladder. Otherwise the noncontrast appearance of liver, spleen, adrenals, kidneys, pancreas unremarkable. Increase in size of the aneurysmal sac noted possibly related to reportedly known leak, this measures 12.5 x 10.8 cm in size. Prior stent graft repair noted. Correlation with prior exams recommended given the history of known leak. Otherwise no free air or free fluid. Diffuse vascular disease identified. Mild retained stool. No bowel obstruction. Colonic diverticulosis identified. Uterus absent. There is lobulated soft tissue anterior to the right femoral artery noted 1.5 x 1.6 cm size. Unclear if this represents posttreatment changes. No definite groin fluid collection within the [id number]. Multilevel degenerative changes identified throughout the lumbar spine. Degenerative changes both hips. .IMPRESSION: 1 cm right lower lobe nodule. Correlation with prior imaging recommended. Otherwise, consider follow-up based ON Fleischner Society recreations. Cardiomegaly. Nodular soft tissue anterior to the right femoral artery at level of the groin noted unclear if this is postsurgical changes. Correlation with prior imaging recommended. Consider Doppler ultrasound correlation Postsurgical changes status post aortic aneurysm repair with ileal aortic stent grafting. Increase in size in size of the aneurysm sac size 2015 comparison. Correlation with site of known leak and prior imaging recommended. No definite loculated collections within the groin. Colonic diverticulosis. Otherwise no definite evidence of acute inflammatory process or bowel obstruction. Impression dictated by: Kodak Trejo M.D. 01/15/2025 7:18 PM Dictation Location: [facility] Electronically authenticated by: [id number] Y Date: 01/15/2025 19:18
[2025-01-15 17:50] LABS: Hematocrit 27.5 % (36.0-48.0); Hemoglobin 8.6 g/dL (12.0-16.0); Immature Granulocytes Abs Auto 0.12 10^3/uL (0.00-0.03); Immature Granulocytes Pct Auto 0.9 % (0.0-0.5); Lymphocytes Absolute Auto 0.4 10^3/uL (1.2-3.8); Mean Corpuscular HGB Conc 31.3 g/dL (29.9-35.2); Mean Corpuscular Hemoglobin 24.2 pg (26.7-34.0); Mean Corpuscular Volume 77.5 fL (81.0-99.0); Platelet Count 168 10^3/uL (150-450); Red Blood Count 3.55 10^6/uL (4.20-5.40); White Blood Count 14.0 10^3/uL (4.0-11.0)
--- OUTSIDE RECORDS SUMMARY | 2025-01-15 17:59 | XMS_ITS | CCD ---
Author Organization [facility] Care Team Providers Care Radio Despatcher Name Role Phone PAUL LAST Admitting Unavailable PAUL LAST Attending Unavailable AMIE AG Referring Unavailable AMIE AG Primary Care Unavailable [place] Procedure Practitioner Unavailab PAUL Crawford Surgeon Unavailable PAUL LAST Admitting Unavailable PAUL LAST Attending Unavailable AMIE AG Primary Care Unavailable SELF, REFERRED Referring Unavailable [place] Procedure Practitioner Unavailab PAUL Crawford Surgeon Unavailable ALCIDES BENNETT Surgeon Unavailable [place] Procedure Practitioner Unavailab MD Amie Aguirre Primary Care Provider MD Amie Ag Attending Provider [phone] MISC, DR AVENDANO Admitting Unavailable MISC, DR AVENDANO Attending Unavailable MISC, DR AVENDANO Consulting Unavailable Amie Ag Primary Care Unavailable Amie Ag Attending Unavailable Amie Ag Admitting Unavailable Amie Ag Attending Unavailable Amie Ag Admitting Unavailable Amie Ag Primary Care Unavailable MD Amie Ag Primary Care Provider [phone] MD Amie Ag Attending Provider Amie Ag MD Primary Care Provider BILL MILLS Referring Unavailable AMIE AG Primary Care Unavailable BILL MILLS Admitting Unavailable BILL MILLS Attending Unavailable AMIE AG Primary Care Unavailable JOHNSON CONNOR Consulting Unavailable ORACIO REED Consulting Unavailable BILL MILLS Attending Unavailable BILL MILLS Referring Unavailable AMIE AG Primary Care Unavailable Medications Current Medications MedicationDrug Class(es)DatesSig (Normalized)Sig (Original)calcium chloride 0.0014 meq/ml / potassium chloride 0.004 meq/ml / sodium chloride 0.103 meq/ml / sodium lactate 0.028 meq/ml injectable solution (1 source)Start: 93-23-2000OlrnpDRXfnp, at 125 mL/hr, CONTINUOUS, Starting on Fri01/06/24 at 1615, Post-opcholecalciferol 0.05 mg oral capsule (2 sources)Vitamin Dtake 1 capsule by mouth once dailyvitamin D 50 MCG (1999) CAPS capsule Take 1 capsule by mouth daily Activeglucagon (rdna) 1 mg injection (1 source)Antihypoglycemic AgentStart: mg, SubCUTAneous, PRN, Starting on Fri01/06/24 at 1720, Until Discontinued, Low blood sugar, Blood glucose LESS THAN 70 mg/dL and patient NOT ALERT or NPO and does not have IV access., After administration, attempt intravenous access and start dextrose 10% at 100 mL/hr. Repeat blood glucose in 15 minutes x 2 and notify provider. Reconstitute powder for injection by adding 1 mL of pastry mixer-supplied sterile diluent or sterile water for injection to a vial containing 1 mg of the drug, to provide solutions containing 1 mg/mL. Shake vial gently to dissolve. Glucose (3 sources)Start: 47-43-3201NtpvmBBPlqv, at 100 mL/hr, CONTINUOUS PRN, if blood glucose remains LESS THAN 70 mg/dL after 2 dextrose 10% intravenous boluses or administration of glucagon, Starting on Fri01/06/24 at 1720, If blood glucose fails to stabilize after 2 dextrose 10% intravenous boluses or glucagon administration, start dextrose 10% infusion at 100 mL/hour and repeat blood glucose at 30 and 60 minutes. If blood glucose is GREATER THAN 70 mg/dL after 60 minutes, discontinue dextrose 10% infusion.Start: 94-58-2267fyyebbor bolus 10% 125 mLStart: g (4 tablet), Oral, PRN, Starting on Fri01/06/24 at 1720, Until Discontinued, Low blood sugar, If blood glucose is LESS THAN 70 mg/dL and patient is alert and tolerating oral. Give 4 tablets (16g) Repeat blood glucose in 15 minutes. If blood glucose is LESS THAN 70 mg/dL, repeat treatment and recheck blood glucose in 15 minutes x 2. If blood glucose remains LESS THAN 70 mg/dL, notify provider.100 ml magnesium sulfate 10 mg/ml injection (1 source)Start: hr metFORMIN hydrochloride 500 mg extended release oral tablet (3 sources)BiguanideStart: 48-71-1301hyyu 1 tablet by mouth once daily at breakfastmetFORMIN (GLUCOPHAGE-XR) 500 MG extended release tablet Take 1 tablet by mouth daily (with breakfast) 11/08/2021 Activemorphine (PF) injection 2 mg (1 source)Start: 68-99-0228vfbqmujj (PF) injection 2 mgPotassium Chloride (1 source)Start: 36-25-8280sikwqkboo chloride (KLOR-CON M) extended release tablet 40 mEqsimvastatin 20 mg oral tablet (3 sources)HMG-CoA Reductase InhibitorStart: 65-97-1092hxyy 1 tablet by mouth once dailysimvastatin (ZOCOR) 20 MG tablet Take 1 tablet by mouth nightly 11/25/2021 Active Completed/Discontinued Medications MedicationDrug Class(es)DatesSig (Normalized)Sig (Original)albuterol 0.83 mg/ml inhalation solution (1 source)beta2-Adrenergic AgonistStart: 01-07-2024 End: .5 mg, Nebulization, ONCE, 1 dose, On Fri01/07/24 at 1300, Initiate RT Bronchodilator Protocol: Noaspirin 81 mg delayed release oral tablet (4 sources)Platelet Aggregation Inhibitor, Nonsteroidal Anti-inflammatory Drug Start: 14-87-3304zsxs 81 mg by mouth once daily81 mg, Oral, DAILY, First dose on Fri01/06/24 at 1615, Until Discontinued, Do not crush or break.,Post-optake 1 tablet by mouth once dailyaspirin 81 MG chewable tablet Take 1 tablet by mouth daily Activeatorvastatin 10 mg oral tablet (1 source)HMG-CoA Reductase InhibitorStart: 76-31-402873 mg, Oral, DAILY, First dose on Fri01/06/24 at 1615, Until Discontinued, Substituted for Simvastatin (ZOCOR).ceFAZolin (ANCEF) 2000 mg in 20 mL IV syringe (1 source)Start: 01-06-2024 End: 11-24-9406pocx 2000 mg intravenously every eight hours2,000 mg, IntraVENous, Every 8 hours, First dose on Fri01/06/24 at 1700, For 2 doses, Administer over 5 mins.cetirizine hydrochloride 10 mg oral tablet (4 sources)Histamine-1 Receptor AntagonistStart: 95-39-8982ptgy 10 mg by mouth once daily10 mg, Oral, DAILY, First dose on Fri01/06/24 at 1615, Until Discontinued1 ml hydrALAZINE hydrochloride 20 mg/ml injection (1 source)Arteriolar VasodilatorStart: 95-37-129430 mg, IntraVENous, EVERY 6 HOURS PRN, Starting on Fri01/06/24 at 1714, Until Discontinued, SBP > 170 hydroCHLOROthiazide 25 mg / triamterene 37.5 mg oral capsule (2 sources)Potassium-sparing Diuretic, Thiazide DiureticStart: 11-08-2021 End: 24-65-0989pqgp 1 capsule by mouth once daily in the morningtriamterene- hydroCHLOROthiazide (DYAZIDE) 37.5-25 MG per capsule Take 1 capsule by mouth every morning 11/08/2021 01/01/2024 Discontinued (LIST CLEANUP)insulin lispro 100 unt/ml injectable solution (1 source)Insulin AnalogStart: -4 Units, SubCUTAneous, 4 TIMES DAILY BEFORE MEALS & NIGHTLY, First dose on Fri01/06/24 at 2100, Until Discontinued, Corrective Low Dose Algorithm Glucose: Dose: 70-179 No Insulin 180-249 1Unit 250-299 2 Units 300-349 3 Units Over 349 4 Units and notify physician Administer as soon as possible within 60 minutes of last blood glucose checkiopamidol (ISOVUE-370) 76 % injection 100 mL (1 source)Start: 08-01-2022 End: 05-95-0793klmtqtrjr (ISOVUE-370) 76 % injection 100 mLsertraline 50 mg oral tablet (4 sources)Serotonin Reuptake InhibitorStart: 14-68-7165bvel 50 mg by mouth once daily50 mg, Oral, DAILY, First dose on Fri01/06/24 at 1615, Until Discontinued5 ml sodium chloride 9 mg/ml injection (5 sources)Start: -40 mL, IntraVENous, EVERY 12 HOURS SCHEDULED (2 times per day), First dose on Fri01/06/24 at 2100, Until Discontinued, For Line Patency: Peripheral IV = 5 mL; Midline or Central Line = 10 mL/lumen. If following IV push medication, administer flush at same rate as the IV push. Flush volume is determined by type of infusion therapy being given. For non- viscous solutions use: Peripheral IV = 5 mLMidline or Central Line = 10 mL/lumen For viscous solutions (i.e. blood components, parenteral nutrition, contrast media, or after obtaining blood sample) use: Peripheral IV = 10 mL Midline or Central Line = 20 mL/lumen, Post-opStart: 47-37-0260Ksngg: 51-49-2134Whmni: 31-80-9426amhhfx chloride flush 0.9 % injection 10 mLStart: 08-01-2022 End: .9 % sodium chloride bolus Problems Active Problems Problem ClassificationProblemDateDocumented DateEpisodic/ChronicCancer of uterus (3 sources)Malignant neoplasm of endometrium of corpus uteri ; Translations: [Malignant neoplasm of endometrium]Onset: hronic Complication of device; implant or graft (8 sources)Breakdown (mechanical) of aortic (bifurcation) graft (replacement), initial encounter; Translations: [Mechanical complication of other vascular device, implant, and graft]Onset: 145527-84-1340HtbkwpzhIiwsmwxo mellitus with complications (3 sources)Type 2 diabetes mellitus; Translations: [Type 2 diabetes mellitus with hyperglycemia]Onset: 653094-67-3470GfpekcjVwxwutdpu of lipid metabolism (3 sources)Hyperlipidemia; Translations: [Other hyperlipidemia]Onset: 01-01-2022 72-81-9736GgubdxsLiphvbrgu hypertension (3 sources)Essential hypertension; Translations: [Essential (primary) hypertension]Onset: 947447-13-1297MhizlitNcocx diseases of kidney and ureters (4 sources)Disorder of kidney and ureter, unspecified; Translations: [DISORDER KIDNEY AND URETER UNS]Onset: 78-38-2754SkqhgbdeDduqw nutritional; endocrine; and metabolic disorders (3 sources)Severe obesity; Translations: [Morbid (severe) obesity due to excess calories]Onset: 614571-68-5962CkeuimcXeganbwq codes; unclassified (1 source)History of repair of aneurysm of abdominal aorta; Translations: [Other specified postprocedural states]EpisodicUnclassified (1 source)Encounter for screening for other suspected endocrine disorder; Translations: [Encounter for screening for other suspected endocrine disorder] Onset: 71-69-3407Bqggbwdmdfva (1 source)Abdominal aortic aneurysm, without rupture, unspecified; Translations: [Abdominal aortic aneurysm, without rupture, unspecified]Onset: 11-12-2023 Past or Other Problems Problem ClassificationProblemDateDocumented DateEpisodic/ChronicFluid and electrolyte disorders (3 sources)Hypokalemia; Translations: [Hypokalemia]Onset: EpisodicOther diseases of kidney and ureters (3 sources)Renal impairment; Translations: [Disorder of kidney and ureter, unspecified]Onset: 258144-39-3747Vfhrowkg Results Test NameValueInterpretationReference RangeFacilityCREATININE w/eGFR CKD-EPIon 27-03-6282Bhwbtfkefz [Mass/Vol]1.10 mg/dLHigh(0.52 - 1.04)Brian ClinicComment on above:Order Comment: STAT PERFORMED AT: [facility] [id number] By: #### CR/GFR #### [facility] [address] [place] [address], [id number] GFR by CKD-EPI50.5 ML/M1.7Low(60.0)Brian ClinicComment on above:Order Comment: STAT PERFORMED AT: [facility] [id number] By: #### CR/GFR #### [facility] [address] [place] [address], [id number] Basic Metabolic Panelon 62-13-7223Cmmhp gap [Moles/Vol] 10 mmol/L9 - 16 mmol/LBon Secours Mercy HealthCalcium [Mass/Vol]8.9 mg/dL8.8 - 10.2 mg/dLBon Secours Mercy HealthChloride [Moles/Vol]100 mmol/L98 - 107 mmol/L [facility] HealthCO2 [Moles/Vol]27 mmol/L20 - 31 mmol/LBon [facility] CenterCreatinine [Mass/Vol]1.4 mg/dLHigh0.50 - 0.90 mg/dLBon [facility] Medical CenterEst, Glom Filt Ovcb71Pci- PINFBon [facility]camore Medical CenterComment on above: These results are not intended for use in patients <18 years of age. eGFR results are calculated without a race factor using the 2020 CKD-EPI equation. Careful clinical correlation is recommended, particularly when comparing to results calculated using previous equations. The CKD-EPI equation is less accurate in patients with extremes of muscle mass, extra-renal metabolism of creatine, excessive creatine ingestion, or following therapy that affects renal tubular secretion. Glucose [Mass/Vol]158 mg/tNWdmv41 - 115 mg/dLBon [facility] Interpretation and review of laboratory resultsAbnormBallad Health Potassium [Moles/Vol]4.0 mmol/L3.7 - 5.3 mmol/LBon [facility] Medical CenterSodium [Moles/Vol]138 mmol/L136 - 145 mmol/LBon [facility] Medical CenterUrea nitrogen [Mass/Vol]21 mg/dL8 - 23 mg/dLBon [facility] Basic Metabolic Profon 43-55-2242Rqqlo gap [Moles/Vol]10 mmol/LNormal9-16[facility] Hospitalcy Providence HealthComment on above:Performed By: #### TYS #### [facility] [address] [facility] [place] [address] Jet Engine Mechanic: SHEA Grijalvaalcium [Mass/Vol]8.9 mg/dLNormal8.8-10.2[facility] Providence HealthComment on above:Performed By: #### TYS #### [facility] [address] [facility] [place], [place] [id number] Jet Engine Mechanic: SHEA Grijalvahloride [Moles/Vol]100 mmol/HLpkldk28-608Rlspl Providence HealthComment on above:Performed By: #### TYS #### [facility] [address] [place] [address] Jet Engine Mechanic: SHEA GrijalvaO2 [Moles/Vol]27 mmol/MHvyzzg52-79XrtfyUpper Valley Medical Center on above:Performed By: #### TYS #### [facility] [address] [place] [address] Jet Engine Mechanic: SHEA Grijalvareatinine [Mass/Vol]1.4 mg/dLHigh0.50-0.90 [facility] on above:Performed By: #### TYS #### [facility] [address] [place] [address] Jet Engine Mechanic: Harrison Gonzalez MDGFR/1.73 sq M.predicted among non-blacks MDRD (S/P/Bld) [Vol rate/Area]39 mL/min/{1.73_m2}Low>60[facility] HealthComhawthorn center on above:Result Comment: These results are not intended for use in patients <18 years of age. eGFR results are calculated without a race factor using the 2020 CKD-EPI equation. Careful clinical correlation is recommended, particularly when comparing to results calculated using previous equations. The CKD-EPI equation is less accurate in patients with extremes of muscle mass, extra-renal metabolism of creatine, excessive creatine ingestion, or following therapy that affects renal tubular secretion.Performed By: #### TYS #### [facility] [address] [place] [address] Jet Engine Mechanic: Harrison Gonzalez MDGlucose [Mass/Vol]158 mg/rWJcjc92-401[facility] on above:Performed By: #### TYS #### [facility] [address] [place] [address] Jet Engine Mechanic: MYAH Grijalvaotassium [Moles/Vol]4.0 mmol/LNormal3.7-5.3 [facility] on above:Performed By: #### TYS #### [facility] [address] [facility] [place] [address] Jet Engine Mechanic: LUIS FERNANDO Grijalvaodium [Moles/Vol]138 mmol/RWhshvb870-648EpojnSycamore Medical CenterComhawthorn center on above:Performed By: #### TYS #### [facility] [address] [place] [address]. [place] [address] Jet Engine Mechanic: Harrison Gonzalez MDUrea nitrogen [Mass/Vol]21 mg/dLNormal8-23[facility] CenterComhawthorn center on above:Performed By: #### TYS #### [facility] [address] [place] [address] Jet Engine Mechanic: Harrison Gonzalez MDGlucose,Whole Bloodon 87-75-3088Sibradx [Mass/Vol]157 mg/rYDvse14-229EpdveSycamore Medical CenterGlucose [Mass/Vol]100 mg/dL Gtqwhj57-085ShkbhSycamore Medical CenterMagnesiumon 35-43-6524Vfueuyhqw [Mass/Vol]2.4 mg/dL1.6 - 2.4 mg/dLBon [facility] Medical CenterMagnesium [Mass/Vol]2.4 mg/dLNormal 1.6-2.4[facility] Medical CenterComhawthorn center on above:Performed By: #### YARITZA, MG #### [facility] [address] [place] [address] Jet Engine Mechanic: Harrison Gonzalez MDNo Panel Informationon 47-72-0580Vge [facility] Glucose Fingerstickon 82-60-1646Zecnhzk [Mass/Vol]157 mg/dLHigh 65 - 105 mg/dLBon [facility] Medical CenterInterpretation and review of laboratory resultsAbnormalBon [facility] CenterGlucose [Mass/Vol]100 mg/dL65 - 105 mg/dLBon [facility] CenterPhosphoruson 02-33-0295Zvcbrvxez [Mass/Vol]4.2 mg/dL2.5 - 4.5 mg/dLBon [facility] Medical CenterPhosphorus, Inorg.on 03-07-2332Kmflrmtfdr, Inorg.4.2 mg/dL Normal2.5-4.5[facility] Medical CenterComment on above:Performed By: #### YARITZA, MG #### [facility] [address] [place] [address] Jet Engine Mechanic: BLAYNE Grijalva ABDOMEN (2 VIEWS)on 32-13-2515FF ABDOMEN (2 VIEWS)EXAMINATION: TWO XRAY VIEWS OF THE ABDOMEN 01/07/2024 10:03 am COMPARISON: X-ray abdomen 01/02/2022 HISTORY: ORDERING SYSTEM PROVIDED HISTORY: post op TECHNOLOGIST PROVIDED HISTORY: Abdominal X-ray per MD post op FINDINGS: Multiple loops of mildly dilated small bowel in the right hemiabdomen. There is stool and gas seen in the descending colon. Air-fluid level in the stomach. Aortic vascular stent extending to the bilateral common iliac arteries with the multiple coils proximally. Right renal artery stent is now visualized. The left renal artery stent is not well visualized due to overlapping structures. IMPRESSION: Postoperative changes of aortic aneurysm repair. Mildly dilated loops of small bowel in the right hemiabdomen, likely ileus. Interpreted by: Randi Fernandez MD Signed by: Randi Fernandez MD 01/07/24 Final resultNormalMerMason General HospitalXR Abdomen 2 Viewson 01-07-2024 Postoperative changes of aortic aneurysm repair. Mildly dilated loops of small bowel in the right hemiabdomen, likely ileus. MHPN RIS CONSOLIDATEDEXAMINATION: TWO XRAY VIEWS OF THE ABDOMEN 01/07/2024 10:03 am COMPARISON: X-ray abdomen 01/02/2022 HISTORY: ORDERING SYSTEM PROVIDED HISTORY: post op TECHNOLOGIST PROVIDED HISTORY: Abdominal X-ray per MD post op FINDINGS: Multiple loops of mildly dilated small bowel in the right hemiabdomen. There is stool and gas seen in the descending colon. Air-fluid level in the stomach. Aortic vascular stent extending to the bilateral common iliac arteries with the multiple coils proximally. Right renal artery stent is now visualized. The left renal artery stent is not well visualized due to overlapping structures. Randi Corcoran MD - 01/07/2024 EXAMINATION: TWO XRAY VIEWS OF THE ABDOMEN 01/07/2024 10:03 am COMPARISON: X-ray abdomen 01/02/2022 HISTORY: ORDERING SYSTEM PROVIDED HISTORY: post op TECHNOLOGIST PROVIDED HISTORY: Abdominal X-ray per MD post op FINDINGS: Multiple loops of mildly dilated small bowel in the right hemiabdomen. There is stool and gas seen in the descending colon. Air-fluid level in the stomach. Aortic vascular stent extending to the bilateral common iliac arteries with the multiple coils proximally. Right renal artery stent is now visualized. The left renal artery stent is not well visualized due to overlapping structures. IMPRESSION: Postoperative changes of aortic aneurysm repair. Mildly dilated loops of small bowel in the right hemiabdomen, likely ileus. [facility] CenterRadiology Study observation (narrative)[facility] Abdomen 2 ViewsOrdered By: Randi Fernandez on 91-90-1085WvtCarilion Roanoke Memorial Hospital Work Phone: CBCon 68-15-9973Puuhgxsnkjc distribution width (RBC) [Ratio]15.9 %High11.8 - 14.4 %[facility] CenterHematocrit (Bld) [Volume fraction]35.5 %Low36.3 - 47.1 %[facility] CenterHemoglobin (Bld) [Mass/Vol]10.5 g/dLLow11.9 - 15.1 g/dLBCarilion Roanoke Memorial HospitalInterpretation and review of laboratory resultsAbnormalUVA Health University HospitalH (RBC) [Entitic mass]27.6 pg25.2 - 33.5 pgUVA Health University HospitalHC (RBC) [Mass/Vol]29.6 g/dL 28.4 - 34.8 g/dLBVCU Health Community Memorial HospitalV (RBC) [Entitic vol]93.4 fL82.6 - 102.9 fLStonesprings Hospital CenterNucleated RBC/100 WBC (Bld) [Ratio]0.0 %0.0 per 100 WBCStonesprings Hospital CenterPlatelet mean volume (Bld) [Entitic vol]9.8 fL8.1 - 13.5 fLStonesprings Hospital CenterPlatelets (Bld) [#/Vol]239 10*3/uLBon [facility] Medical CenterRBC (Bld) [#/Vol]3.80 10*6/uLLow3.95 - 5.11 m/uLStonesprings Hospital CenterWBC other (Bld) [#/Vol]8.7Bon [facility] Erythrocyte distribution width (RBC) [Ratio]15.9 %High11.8-14.4[facility] Providence HealthComment on above:Performed By: #### CBC #### [facility] [address] [place] [address] Jet Engine Mechanic: Harrison Gonzalez MDHematocrit (Bld) [Volume fraction]35.5 %Low 36.3-47.1MercNavos HealthComment on above:Performed By: #### CBC #### [facility] [address] [place] [address] Jet Engine Mechanic: Harrison Gonzalez MDHemoglobin (Bld) [Mass/Vol]10.5 g/dLLow 11.9-15.1[facility] Providence HealthComment on above:Performed By: #### CBC #### [facility] [address] [place] [address] Jet Engine Mechanic: KOURTNEY GrijalvaCH (RBC) [Entitic mass]27.6 irEjhfwr93.2-33.5 [facility] CenterComment on above:Performed By: #### CBC #### [facility] [address] [place] [address] Jet Engine Mechanic: DORA GrijalvaC (RBC) [Mass/Vol]29.6 g/iBFjuiam16.4-34.8 [facility] CenterComment on above:Performed By: #### CBC #### [facility] [address] [facility] [place] [address] Jet Engine Mechanic: CARINA Grijalva (RBC) [Entitic vol]93.4 vNQeblbe37.6-102.9 [facility] CenterComhawthorn center on above:Performed By: #### CBC #### [facility] [facility] [place] [address] Jet Engine Mechanic: JENNY Grijalva Automated0.0 per 100 WBCNormal0.0[facility] CenterComhawthorn center on above:Performed By: #### CBC #### [facility] [facility] [place] [address] Jet Engine Mechanic: Milo Grijalva mean volume (Bld) [Entitic vol]9.8 fL Normal8.1-13.5[facility] Medical CenterComhawthorn center on above:Performed By: #### CBC #### [facility] [facility] [place] [address] Jet Engine Mechanic: Jada Grijalva (Bld) [#/Vol]239 10*3/cELnufbd685-741 [facility] CenterComhawthorn center on above:Performed By: #### CBC #### [facility] [facility] [place] [address] Jet Engine Mechanic: ADRIAN Grijalva (Bld) [#/Vol]3.80 10*6/uLLow3.95-5.11[facility] CenterComhawthorn center on above:Performed By: #### CBC #### [facility] [facility] [place] [address] Jet Engine Mechanic: DHARMESH Grijalva (Bld) [#/Vol]8.7 10*3/uLNormal3.5-11.3[facility] Providence HealthComment on above:Performed By: #### CBC #### [facility] [address] [place] [address] Jet Engine Mechanic: Harrison Gonzalez MDErythrocyte distribution width (RBC) [Ratio] 15.8 %High11.8-14.4[facility] Hospitalcy [facility] HealthComment on above:Performed By: #### CBC #### [facility] [address] [place] [address] Jet Engine Mechanic: Harrison Gonzalez MDHematocrit (Bld) [Volume fraction]32.5 %Low 36.3-47.1[facility] Providence HealthComment on above:Performed By: #### CBC #### [facility] [address] [place] [address] Jet Engine Mechanic: Harrison Gonzalez MDHemoglobin (Bld) [Mass/Vol]9.9 g/dLLow11.9-15.1 [facility] CenterComment on above:Performed By: #### CBC #### [facility] [address] [place] [address] Jet Engine Mechanic: KOURTNEY GrijalvaCH (RBC) [Entitic mass]27.8 tpGtskjz76.2-33.5 [facility] CenterComment on above:Performed By: #### CBC #### [facility] [address] [place] [address] Jet Engine Mechanic: KOURTNEY GrijalvaCHC (RBC) [Mass/Vol]30.5 g/dZAxcbjt85.4-34.8 [facility] CenterComment on above:Performed By: #### CBC #### [facility] [address] [place] [address] Jet Engine Mechanic: CARINA Grijalva (RBC) [Entitic vol]91.3 mWRyqjwm02.6-102.9 [facility] CenterComhawthorn center on above:Performed By: #### CBC #### [facility] [address] [facility] [place] [address] Jet Engine Mechanic: JENNY Grijalva Automated0.0 per 100 WBCNormal0.0[facility] CenterComhawthorn center on above:Performed By: #### CBC #### [facility] [address] [place] [address]. [place] [address] Jet Engine Mechanic: Milo Grijalva mean volume (Bld) [Entitic vol]10.0 fL Normal8.1-13.5[facility] CenterComhawthorn center on above:Performed By: #### CBC #### [facility] [address] [place] [address]. [place] [address] Jet Engine Mechanic: Jada Grijalva (Bld) [#/Vol]221 10*3/lHYhqrar804-578 [facility] CenterComhawthorn center on above:Performed By: #### CBC #### [facility] [address] [place] [address]. [place] [address] Jet Engine Mechanic: ADRIAN Grijalva (Bld) [#/Vol]3.56 10*6/uLLow3.95-5.11[facility] on above:Performed By: #### CBC #### [facility] [address] [place] [address] Jet Engine Mechanic: DHARMESH Grijalva (Bld) [#/Vol]7.8 10*3/uLNormal3.5-11.3MUniversity Hospitals Ahuja Medical Center on above:Performed By: #### CBC #### [facility] [address] [place] [address] Jet Engine Mechanic: Harrison Gonzalez [facility] TAHLEQUAHBC without Diffon 68-05-9855Ywepvbfxxoo distribution width (RBC) [Ratio]15.8 %High11.8 - 14.4 %[facility] Hematocrit (Bld) [Volume fraction]32.5 %Low36.3 - 47.1 %[facility] Hemoglobin (Bld) [Mass/Vol]9.9 g/dLLow11.9 - 15.1 g/dLBon [facility] Interpretation and review of laboratory resultsAbnormalStonesprings Hospital Center MCH (RBC) [Entitic mass]27.8 pg25.2 - 33.5 pgStonesprings Hospital CenterMCHC (RBC) [Mass/Vol]30.5 g/dL28.4 - 34.8 g/dLBon [facility] CenterMCV (RBC) [Entitic vol]91.3 fL82.6 - 102.9 fLStonesprings Hospital CenterNucleated RBC/100 WBC (Bld) [Ratio]0.0 %0.0 per 100 WBCStonesprings Hospital CenterPlatelet mean volume (Bld) [Entitic vol]10.0 fL8.1 - 13.5 fLStonesprings Hospital CenterPlatelets (Bld) [#/Vol] 221 10*3/uLBon [facility] Medical CenterRBC (Bld) [#/Vol]3.56 10*6/uLLow3.95 - 5.11 m/uLStonesprings Hospital CenterWBC other (Bld) [#/Vol]7.8Bon [facility] CenterCath hemo interfaceon 12-32-2594Sajs surface area Derived from formula2.04 m2[facility] CenterGlucose,Whole Bloodon 46-50-9754Qlacvbl [Mass/Vol]189 mg/yHMykp82-348Rxsxf Providence HealthGlucose [Mass/Vol]138 mg/qGAuff12-561WwzeeMason General HospitalGlucose [Mass/Vol]131 mg/dL Agio57-829Kkncn Providence HealthPOC Glucose Fingerstickon 86-15-8275Unyibus [Mass/Vol]189 mg/yVQglu85 - 105 mg/dLBon [facility] CenterInterpretation and review of laboratory resultsAbnormalCarilion Giles Memorial HospitalGlucose [Mass/Vol]138 mg/bZKuoa41 - 105 mg/dLBon [facility] Interpretation and review of laboratory resultsAbnormNorton Community HospitalGlucose [Mass/Vol]131 mg/rZAmxl46 - 105 mg/dLBon [facility] CenterInterpretation and review of laboratory resultsAbnormSentara CarePlex HospitalType + Screenon [id number] + Screen Sample Expiration 01/09/2024,2359 Arm Band Number BE [id number] ABO/Rh(D) A POSITIVE Antibody Screen NEGATIVE Unit Number [id number] Blood Component Type Leukocyte Reduced Red Cell Unit Division 00 Status of Unit REL FROM ALLOC Transfusion Status OK TO TRANSFUSE Crossmatch Result COMPATIBLE Unit Number [id number] Blood Component Type Leukocyte Reduced Red Cell Unit Division 00 Status of Unit REL FROM ALLOC Transfusion Status OK TO TRANSFUSE Crossmatch Result COMPATIBLE Unit Number [id number] Blood Component Type Leukocyte Reduced Red Cell Unit Division 00 Status of Unit REL FROM ALLOC Transfusion Status OK TO TRANSFUSE Crossmatch Result COMPATIBLEMcKitrick HospitalComment on above: Performed By: #### TYS #### [facility] [address] [place] [address] Jet Engine Mechanic: Harrison Gonzalez MDType + ScreenSample Expiration 01/09/2024,2353 Arm Band Number BE [id number] ABO/Rh(D) A POSITIVE Antibody Screen NEGATIVEMcKitrick HospitalComment on above:Performed By: #### TYS #### [facility] [address] [place], [place] [id number] Jet Engine Mechanic: Harrison Gonzalez MDType + Screenon [id number] + ScreenSample Expiration 01/09/2024,2351 Arm Band Number BE [id number] ABO/Rh(D) A POSITIVE Antibody Screen NEGATIVE Unit Number [id number] Blood Component Type Leukocyte Reduced Red Cell Unit Division 00 Status of Unit REL FROM ALLOC Transfusion Status OK TO TRANSFUSE Crossmatch Result COMPATIBLE Unit Number [id number] Blood Component Type Leukocyte Reduced Red Cell Unit Division 00 Status of Unit REL FROM ALLOC Transfusion Status OK TO TRANSFUSE Crossmatch Result COMPATIBLE Unit Number [id number] Blood Component Type Leukocyte Reduced Red Cell Unit Division 00 Status of Unit REL FROM ALLOC Transfusion Status OK TO TRANSFUSE Crossmatch Result COMPATIBLENoMarymount HospitalComment on above:Performed By: #### TYS #### [facility] [address] [place] [address] Jet Engine Mechanic: Harrison Gonzalez [facility] TAHLEQUAHult,Urineon 86-88-8622Htbn,UrineSpecimen Description .URINE Culture NO SIGNIFICANT GROWTH Report Status FINAL 01/02/2024[facility] CenterComment on above:Performed By: #### URC #### [facility] [address] [place] [address] [phone] Jet Engine Mechanic: Huan Myles [facility] TAHLEQUAHulture, Urineon [id number] identified Cx Nom (Unsp spec)NO SIGNIFICANT GROWTHStonesprings Hospital Center Specimen Description.URINEBon [facility] Medical CenterBon [facility] Medical CenterAPTTon 33-71-8580eYVJ Coag (Bld) [Time]28.3 sBon [facility] Medical CenterComment on above: IV Heparin Therapy Range: 66.0-92.0 sec aPTT Coag (Bld) [Time]28.3 oIxinyo80.0-36.5[facility] Comment on above:Result Comment: IV Heparin Therapy Range: 66.0-92.0 secPerformed By: #### BMP, GLYHGB, CDP, PTT, PT #### [facility] [address] [place], [place] [phone] Jet Engine Mechanic: Joya Watson Metabolic Panelon 92-35-9697Nucoj gap [Moles/Vol]12 mmol/L9 - 16 mmol/LBon [facility] Medical CenterCalcium [Mass/Vol]9.9 mg/dL8.6 - 10.4 mg/dLBon [facility] Medical CenterChloride [Moles/Vol]101 mmol/L98 - 107 mmol/LBon [facility] Medical CenterCO2 [Moles/Vol]27 mmol/L20 - 31 mmol/LBon [facility] CenterCreatinine [Mass/Vol]1.3 mg/dLHigh0.6 - 0.9 mg/dLBon [facility] Medical CenterEst, Glom Filt Ddxg89Hnv- PINFBon Sycamore Medical CenterComment on above: These results are not intended for use in patients <18 years of age. eGFR results are calculated without a race factor using the 2020 CKD-EPI equation. Careful clinical correlation is recommended, particularly when comparing to results calculated using previous equations. The CKD-EPI equation is less accurate in patients with extremes of muscle mass, extra-renal metabolism of creatine, excessive creatine ingestion, or following therapy that affects renal tubular secretion. Glucose [Mass/Vol]107 mg/dDIebb68 - 99 mg/dLBon [facility] Interpretation and review of laboratory resultsAbnormalStonesprings Hospital Center Potassium [Moles/Vol]4.6 mmol/L3.7 - 5.3 mmol/LBon [facility] CenterSodium [Moles/Vol]140 mmol/L136 - 145 mmol/LBon [facility] CenterUrea nitrogen [Mass/Vol]19 mg/dL8 - 23 mg/dLBon [facility] Basic Metabolic Profon 51-99-1852Tgocw gap [Moles/Vol]12 mmol/LNormal9-16Kindred HealthcareComment on above:Performed By: #### BMP, GLYHGB, CDP, PTT, PT #### [facility] [address] [place], [place] [phone] Jet Engine Mechanic: Huan Myles MDCalcium [Mass/Vol]9.9 mg/dLNormal8.6-10.4Kindred HealthcareComment on above:Performed By: #### BMP, GLYHGB, CDP, PTT, PT #### [facility] [address] [place] [address] Jet Engine Mechanic: SHEA Watsonhloride [Moles/Vol]101 mmol/GAcehol14-548UffomKindred HealthcareComment on above:Performed By: #### BMP, GLYHGB, CDP, PTT, PT #### [facility] [address] [place] [address] Jet Engine Mechanic: Huan Myles MDCO2 [Moles/Vol]27 mmol/GKvmdar87-52MwkydKindred HealthcareComment on above:Performed By: #### BMP, GLYHGB, CDP, PTT, PT #### [facility] [address] [place] [address] Jet Engine Mechanic: SHEA Watsonreatinine [Mass/Vol]1.3 mg/dLHigh0.6-0.9Kindred HealthcareComment on above:Performed By: #### BMP, GLYHGB, CDP, PTT, PT #### [facility] [address] [place] [address] Jet Engine Mechanic: Huan Myles MDGFR/1.73 sq M.predicted among non-blacks MDRD (S/P/Bld) [Vol rate/Area]42 mL/min/{1.73_m2}Low>60Kindred HealthcareComment on above:Result Comment: These results are not intended for use in patients <18 years of age. eGFR results are calculated without a race factor using the 2020 CKD-EPI equation. Careful clinical correlation is recommended, particularly when comparing to results calculated using previous equations. The CKD-EPI equation is less accurate in patients with extremes of muscle mass, extra-renal metabolism of creatine, excessive creatine ingestion, or following therapy that affects renal tubular secretion.Performed By: #### BMP, GLYHGB, CDP, PTT, PT #### [facility] [address] [place] [address] Jet Engine Mechanic: Huan Myles MDGlucose [Mass/Vol]107 mg/cEBwqz40-01FqrizEmanate Health/Queen of the Valley HospitalComment on above:Performed By: #### BMP, GLYHGB, CDP, PTT, PT #### [facility] [address] [place] [address] Jet Engine Mechanic: MYAH Watsonotassium [Moles/Vol]4.6 mmol/LNormal3.7-5.3 Kindred HealthcareComment on above:Performed By: #### BMP, GLYHGB, CDP, PTT, PT #### [facility] [address] [place] [address] Jet Engine Mechanic: LUIS FERNANDO Watsonodium [Moles/Vol]140 mmol/BStapql312-819XwjijKindred HealthcareComment on above:Performed By: #### BMP, GLYHGB, CDP, PTT, PT #### [facility] [address] [place] [address] Jet Engine Mechanic: Huan Myles MDUrea nitrogen [Mass/Vol]19 mg/dLNormal8-23Kindred HealthcareComment on above:Performed By: #### BMP, GLYHGB, CDP, PTT, PT #### [facility] [address] [place] [address] Jet Engine Mechanic: Huan Myles [facility] with Auto Differentialon 17-83-1402Mwmifrdrm (Bld) [#/Vol]0.05 10*3/uLBon Secours Mercy HealthBasophils/100 WBC (Bld)1 %0 - 2 %[facility] HealthEosinophils (Bld) [#/Vol]0.38 10*3/uLBon Secours [facility] HealthEosinophils/100 WBC (Bld)4 %1 - 4 %[facility] Erythrocyte distribution width (RBC) [Ratio]15.5 %High11.8 - 14.4 %[facility] HealthHematocrit (Bld) [Volume fraction]36.7 %36.3 - 47.1 %[facility] HealthHemoglobin (Bld) [Mass/Vol]10.8 g/dLLow11.9 - 15.1 g/dLBon SecPremier Health Atrium Medical CenterImmature granulocytes (Bld) [#/Vol]0.06 10*3/uLBon SecPremier Health Atrium Medical CenterImmature granulocytes/100 WBC (Bld)1 %Uapl0ActStonesprings Hospital Center Interpretation and review of laboratory resultsAbnormalBon [facility] Lymphocytes/100 WBC (Bld)19 %Low24 - 43 %[facility] CenterLymphocytes/100 WBC (Bld)1.72 %[facility] HospitalH (RBC) [Entitic mass]26.7 pg25.2 - 33.5 pgBon [facility] CenterHC (RBC) [Mass/Vol]29.4 g/dL28.4 - 34.8 g/dLBon SecAvita Health System Galion HospitalV (RBC) [Entitic vol]90.8 fL82.6 - 102.9 fLStonesprings Hospital CenterMonocytes/100 WBC (Bld)7 %3 - 12 %[facility] Monocytes/100 WBC (Bld)0.63 %[facility] CenterNeutrophils/100 WBC (Bld)68 %High36 - 65 %[facility] CenterNucleated RBC/100 WBC (Bld) [Ratio]0.0 % 0.0 per 100 WBCBon [facility]camore Medical CenterPlatelet mean volume (Bld) [Entitic vol] 9.8 fL8.1 - 13.5 fLStonesprings Hospital CenterPlatelets (Bld) [#/Vol]288 10*3/uLBon [facility] Medical CenterRBC (Bld) [#/Vol]4.04 10*6/uL3.95 - 5.11 m/uLBon [facility] Medical CenterRBC (Bld) [#/Vol]ANISOCYTOSIS PRESENTBon [facility] Segmented neutrophils/100 WBC (Bld)6.01 %[facility] CenterWBC other (Bld) [#/Vol]8.9Bon SecHoward Young Medical CenterCBC with Diffon 42-51-5465Kdd. Basophil0.05 k/uLNormal0.00-0.20[facility] Comment on above:Performed By: #### BMP, GLYHGB, CDP, PTT, PT #### [facility] [address] [place] [address] Jet Engine Mechanic: MDAbs. ShirleyImm.Granulocyte0.06 k/uLNormal0.00-0.30Kindred HealthcareComment on above:Performed By: #### BMP, GLYHGB, CDP, PTT, PT #### [facility] [address] [place] [address] Jet Engine Mechanic: MDAbs. ShirleyNeutrophil (Seg)6.01 k/uLNormal1.50-8.10 Kindred HealthcareComment on above:Performed By: #### BMP, GLYHGB, CDP, PTT, PT #### [facility] [address] [facility] [place] [address] Jet Engine Mechanic: Huan Myles MDBasophils/100 WBC (Bld)1 %Normal0-2MLucile [facility] Children's Hospital at StanfordComment on above:Performed By: #### BMP, GLYHGB, CDP, PTT, PT #### [facility] [address] [place] [address] Jet Engine Mechanic: Huan Myles MDEosinophils (Bld) [#/Vol]0.38 10*3/uLNormal 0.00-0.44Kindred HealthcareComment on above:Performed By: #### BMP, GLYHGB, CDP, PTT, PT #### [facility] [address] [place] [address] Jet Engine Mechanic: BERNADETTE Watsonosinophils/100 WBC (Bld)4 %Normal1-4Kindred HealthcareComment on above:Performed By: #### BMP, GLYHGB, CDP, PTT, PT #### [facility] [address] [place] [address] Jet Engine Mechanic: Huan Myles MDErythrocyte distribution width (RBC) [Ratio]15.5 %High11.8-14.4Kindred HealthcareComment on above:Performed By: #### BMP, GLYHGB, CDP, PTT, PT #### [facility] [address] [place] [address] Jet Engine Mechanic: Huan Myles MDHematocrit (Bld) [Volume fraction]36.7 %Normal 36.3-47.1MLucile [facility]'s Hospital at StanfordComment on above:Performed By: #### BMP, GLYHGB, CDP, PTT, PT #### [facility] [address] [place] [address] Jet Engine Mechanic: Huan Myles MDHemoglobin (Bld) [Mass/Vol]10.8 g/dLLow11.9-15.1 Kindred HealthcareComment on above:Performed By: #### BMP, GLYHGB, CDP, PTT, PT #### [facility] [address] [place] [address] Jet Engine Mechanic: Bess Watsonmature granulocytes/100 WBC (Bld)1 %Teov7BneokKindred HealthcareComment on above:Performed By: #### BMP, GLYHGB, CDP, PTT, PT #### [facility] [address] [place] [address] Jet Engine Mechanic: Jose G Watsonmphocytes (Bld) [#/Vol]1.72 10*3/uLNormal 1.10-3.70Kindred HealthcareComment on above:Performed By: #### BMP, GLYHGB, CDP, PTT, PT #### [facility] [address] [place] [address] Jet Engine Mechanic: Jose G Watsonmphocytes/100 WBC (Bld)19 %Csm30-09HzhxzKindred HealthcareComment on above:Performed By: #### BMP, GLYHGB, CDP, PTT, PT #### [facility] [address] [place] [address] Jet Engine Mechanic: KOURTNEY WatsonCH (RBC) [Entitic mass]26.7 wkZkrqzo08.2-33.5 Kindred HealthcareComment on above:Performed By: #### BMP, GLYHGB, CDP, PTT, PT #### [address] [address] Jet Engine Mechanic: KOURTNEY WatsonCHC (RBC) [Mass/Vol]29.4 g/tQTjfanu96.4-34.8 Kindred HealthcareComment on above:Performed By: #### BMP, GLYHGB, CDP, PTT, PT #### [place] [address] Jet Engine Mechanic: KOURTNEY WatsonCV (RBC) [Entitic vol]90.8 ySQlkvfi87.6-102.9 Kindred HealthcareComment on above:Performed By: #### BMP, GLYHGB, CDP, PTT, PT #### [place] [address] Jet Engine Mechanic: KOURTNEY Watsononocytes (Bld) [#/Vol]0.63 10*3/uLNormal 0.10-1.20Kindred HealthcareComment on above:Performed By: #### BMP, GLYHGB, CDP, PTT, PT #### [facility] [address] [place] [address] Jet Engine Mechanic: KOURTNEY Watsononocytes/100 WBC (Bld)7 %Normal3-12Kindred HealthcareComment on above:Performed By: #### BMP, GLYHGB, CDP, PTT, PT #### [address] [address] Jet Engine Mechanic: Palma Watsonutrophil (Seg)68 %Yqrf19-49HxvkfKindred HealthcareComment on above:Performed By: #### BMP, GLYHGB, CDP, PTT, PT #### [facility] [address] [place] [address] Jet Engine Mechanic: JENNY Watson Automated0.0 per 100 WBCNormal0.0Kindred HealthcareComment on above:Performed By: #### BMP, GLYHGB, CDP, PTT, PT #### [facility] [address] [place] [address] Jet Engine Mechanic: Timothy Watsonterocio mean volume (Bld) [Entitic vol]9.8 fL Normal8.1-13.5Kindred HealthcareComment on above:Performed By: #### BMP, GLYHGB, CDP, PTT, PT #### [facility] [address] [place] [address] Jet Engine Mechanic: Timothy Watsontelets (Bld) [#/Vol]288 10*3/pNIelxwp794-006 Kindred HealthcareComment on above:Performed By: #### BMP, GLYHGB, CDP, PTT, PT #### [facility] [address] [place] [address] Jet Engine Mechanic: ADRIAN Watson (Bld) [#/Vol]4.04 10*6/uLNormal3.95-5.11 Kindred HealthcareComment on above:Performed By: #### BMP, GLYHGB, CDP, PTT, PT #### [facility] [address] [place] [address] Jet Engine Mechanic: ADRIAN Watson morphology finding Nom (Bld)ANISOCYTOSIS PRESENTNormalKindred HealthcareComment on above:Performed By: #### BMP, GLYHGB, CDP, PTT, PT #### [facility] [address] [place] [address] Jet Engine Mechanic: Huan Madoff, MDWBC (Bld) [#/Vol]8.9 10*3/uLNormal3.5-11.3Msheltering arms hospitaly [facility] Medical CenterComment on above:Performed By: #### BMP, GLYHGB, CDP, PTT, PT #### [facility] [address] [place], [place] [phone] Jet Engine Mechanic: Huan Myles MDHemoglobin A1Con 22-29-6219Slvnwtd glucose Estimated from glycated hemoglobin (Bld) [Mass/Vol]123 mg/dLBon [facility] Medical CenterComment on above:The ADA and AACC recommend providing the estimated average glucose result to permit better patient understanding of their HBA1c result. HbA1c (Bld) [Mass fraction]5.9 %4.0 - 6.0 %[facility]iles Memorial HospitalGlucose [Mass/Vol]123 mg/dLNoMarymount Hospital Comment on above:Result Comment: The ADA and AACC recommend providing the estimated average glucose result to permit better patient understanding of their HBA1c result.Performed By: #### BMP, GLYHGB, CDP, PTT, PT #### [facility] [address] [place] [address] [phone] Jet Engine Mechanic: Huan Myles MDHbA1c (Bld) [Mass fraction]5.9 %Normal4.0-6.0 Kindred HealthcareComment on above:Performed By: #### BMP, GLYHGB, CDP, PTT, PT #### [facility] [address] [place] [address] [phone] Jet Engine Mechanic: KOURTNEY Watsonicroscopic Urinalysison 86-42-9875Ezvlpmdj LM Ql (Urine sed)NoneNoneBon [facility] Medical CenterCasts LM.LPF (Urine sed) [#/Area] None Reference range defined for non-centrifuged specimen.Bon [facility] Medical CenterEpithelial cells LM.HPF (Urine sed) [#/Area]2 TO 5[facility] RBC LM.HPF (Urine sed) [#/Area]2 TO 5Bon [facility] Medical CenterComment on above: Reference range defined for non-centrifuged specimen.WBC LM.HPF (Urine sed) [#/Area]50 TO 100Bon [facility] CenterBon [facility] Panel Informationon 34-07-4364Cxm [facility] 38-05-1541VSB Coag (PPP) [Relative time]1.1 {INR}NormalKindred HealthcareComment on above: Result Comment: Therapeutic Range: Moderate Anticoagulant Intensity: INR = 2.0-3.0 High Anticoagulant Intensity: INR = 2.5-3.5Performed By: #### BMP, GLYHGB, CDP, PTT, PT #### [facility] [address] [place] [address] [phone] Jet Engine Mechanic: KOKI Watson Coag (PPP) [Time]13.6 bAiozpc38.7-14.9Kindred HealthcareComment on above:Performed By: #### BMP, GLYHGB, CDP, PTT, PT #### [facility] [address] [place] [address] [phone] Jet Engine Mechanic: Julian Watsonime-INRon 18-96-1586YPH Coag (PPP) [Relative time]1.1 {INR}Bon [facility] Medical CenterComment on above: Therapeutic Range: Moderate Anticoagulant Intensity: INR = 2.0-3.0 High Anticoagulant Intensity: INR = 2.5-3.5 PT Coag (PPP) [Time]13.[address] [facility] w/Reflex Cultureon 27-56-0827Qjcglryte, SemiQt,UrNegativeNormalNEGKindred Healthcare Comment on above:Performed By: #### YOGESH BROWNX #### [facility] [address] [place] [address] [phone] Jet Engine Mechanic: Regina Watson, UrineNegativeNormalNEGKindred HealthcareComment on above:Performed By: ###CLEVE FITZPATRICK #### [facility] [address] [place] [address] [phone] Jet Engine Mechanic: SHEA Watsonlarity (U)ClearNormalCLEARMercy Marian Regional Medical CenterComment on above:Performed By: #### STEPHANIE UAX #### [facility] [address] [place] [address] Jet Engine Mechanic: SHEA Watsonolor (U)YellowNormalYELMerKaiser Permanente Medical CenterComment on above:Performed By: #### STEPHANIE UAX #### [facility] [address] [place] [address] Jet Engine Mechanic: Huan Myles MDGlucose Ql (U)NegativeNormalNEGMerKaiser Permanente Medical CenterComment on above:Performed By: #### STEPHANIE UAX #### [facility] [address] [place] [address] Jet Engine Mechanic: Huan Myles MDKetones Ql (U)NegativeNormalNEGMerKaiser Permanente Medical CenterComment on above:Performed By: #### STEPHANIE UAX #### [facility] [address] [place] [address] Jet Engine Mechanic: Huan Myles MDLeukocyte esterase Test strip Ql (U)LARGE AbnormalNEGMerKaiser Permanente Medical CenterComment on above:Performed By: #### STEPHANIE UAX #### [facility] [address] [place] [address] Jet Engine Mechanic: Huan Myles MDNitrite,UrNegativeNormalNEGMerKaiser Permanente Medical CenterComment on above:Performed By: #### STEPHANIE UAX #### [facility] [address] [place] [address] Jet Engine Mechanic: Huan Myles [facility],Ur6.6Vhirrt9.0-8.0[facility] Medical CenterComment on above:Performed By: #### STEPHANIE UAX #### [facility] [address] [place] [address], [place] [address] Jet Engine Mechanic: MYAH Watsonrotein Ql (U)NegativeNormalNEGKindred HealthcareComment on above:Performed By: #### STEPHANIE, UAX #### [facility] [address] [place] [address] Jet Engine Mechanic: LUIS FERNANDO Watsonpec. Dixon,Ur1.028Bhzedo5.005-1.030Kindred HealthcareComment on above:Performed By: #### STEPHANIE, UAX #### [facility] [address] [place] [address] Jet Engine Mechanic: Brandon Watsonbillupe,UrNormalNormal0.0-1.0Kindred HealthcareComment on above:Performed By: #### STEPHANIE UAX #### [facility] [address] [place] [address] Jet Engine Mechanic: Huan Myles MDUrinalysis with Reflex to Cultureon 01-01-2024 Bilirubin Ql (U)NegativeNEGATIVEBon Secours Mercy HealthClarity (U)ClearClearBon Secours [facility] HealthColor (U)YellowYellowBon Secours [facility] HealthGlucose Test strip (U) [Mass/Vol]NegativeNEGATIVE mg/dLBon Secours [facility] HealthHemoglobin Auto test strip Ql (U)NegativeNEGATIVEBon Secours [facility] HealthInterpretation and review of laboratory resultsAbnormalBon Secours [facility] HealthKetones (U) [Mass/Vol]NegativeNEGATIVE mg/dLBon Secours [facility] HealthLeukocyte esterase Test strip Ql (U)LARGEAbnormalNEGATIVEBon Secours [facility]cy HealthNitrite Ql (U)Negative NEGATIVEBon Secours Mercy HealthpH (U)6.5 [pH]5.0 - 8.0[facility] Protein (U) [Mass/Vol]NegativeNEGATIVE mg/dLBon Secours [facility] HealthSpecific gravity (U) [Rel density]1.0141.005 - 1.030[facility] HealthUrobilinogen Qn (U)Normal0.0 - 1.0 EU/dLBon [facility] Medical CenterBon [facility] Urinalysis,Microon 89-36-9306SqgutxksFrulWutpnnILXNHbinp [facility] Medical CenterComment on above:Performed By: #### STEPHANIE, UAX #### [facility] [address] [place] [address] Jet Engine Mechanic: SHEA WatsonastsNoneNormal0-8Kindred HealthcareComment on above:Result Comment: Reference range defined for non- centrifuged specimen.Performed By: #### STEPHANIE UAX #### [facility] [address] [place] [address] Jet Engine Mechanic: Huan Myles MDEpithelial cells LM Ql (Urine sed)2 TO 5Normal 0-5Kindred HealthcareComment on above:Performed By: #### STEPHANIE UAX #### [facility] [address] [place] [address] Jet Engine Mechanic: Huan Myles MDUrine RBC's2 TO 4Azuszz1-0NzpvkKindred HealthcareComment on above:Result Comment: Reference range defined for non- centrifuged specimen.Performed By: #### STEPHANIE, UAX #### [facility] [address] [place] [address] Jet Engine Mechanic: Huan Myles MDUrine WBC's50 TO 068Sfldyb6-9KrowpKindred HealthcareComment on above:Performed By: #### STEPHANIE, UAX #### [facility] [address] [place] [address] Jet Engine Mechanic: HELDER WatsonA ABDOMEN PELVIS W CONTRASTon 10-82-9220PAS ABDOMEN PELVIS W CONTRASTEXAMINATION: CTA OF THE ABDOMEN AND PELVIS WITH CONTRAST 11/12/2023 11:23 am: TECHNIQUE: CTA of the abdomen and pelvis was performed with the administration of intravenous contrast. Multiplanar reformatted images are provided for review. MIP images are provided for review. Automated exposure control, iterative reconstruction, and/or weight based adjustment of the mA/kV was utilized to reduce the radiation dose to as low as reasonably achievable. COMPARISON: August 01, 2022 HISTORY: ORDERING SYSTEM PROVIDED HISTORY: Abdominal aortic aneurysm (AAA) without rupture, unspecified part (HCC) TECHNOLOGIST PROVIDED HISTORY: Reason for Exam: Abdominal aortic aneurysm (AAA) without rupture, unspecified part (HCC) FINDINGS: CTA ABDOMEN: Lung bases demonstrate bilateral pleural effusions right greater than left with lower lobe atelectatic changes. Aortic valve calcification implicates aortic stenosis. Abdominal aortic aneurysm with endovascular repair with the largest axial diameter of the abdominal aorta 11.8 x 10 cm compared to 11 x 9.1 cm previously. There is a suggestion of arterial endoleaks seen in the region of the upper portion of the endograft. This is more pronounced compared to the previous evaluation and may account for some enlargement of the aneurysm sac. Celiac and SMA patent although the SMA demonstrates significant origin stenosis with heavy calcification. Bilateral renal arteries are patent. The liver, gallbladder, pancreas and spleen, adrenals, kidneys and IVC appear stable. No bowel obstruction or perforation. Diverticulosis but no acute diverticulitis. Constipation and stool impaction in the rectum. No lymphadenopathy. No significant ventral hernia. Lumbar spine and sacrum appear intact. Moderate multilevel degenerative disc disease. 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 The right limb is patent. Beyond the left common iliac artery the left external and internal iliac arteries are patent. A femoral-femoral bypass graft is noted supplied by the right common femoral artery with the distal anastomosis in the left common femoral artery which is patent. A small pseudoaneurysm can be seen which measures 1.3 x 0.8 cm beyond the right anastomosis. This was previously seen as well with minimal growth in size. Status post hysterectomy. The urinary bladder demonstrates no acute abnormality. No adnexal abnormality. No pelvic lymphadenopathy. IMPRESSION: 1. Abdominal aortic aneurysm with endovascular repair with the largest axial diameter of the abdominal aorta 11.8 x 10 cm compared to 11 x 9.1 cm previously. There is a suggestion of arterial endoleaks seen in the region of the upper portion of the endograft. This is more pronounced compared to the previous evaluation and may account for some enlargement of the aneurysm sac. 2. 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 The right limb is patent. 3. A femoral-femoral bypass graft is noted supplied by the right common femoral artery with the distal anastomosis in the left common femoral artery which is patent. A small pseudoaneurysm can be seen which measures 1.3 x 0.8 cm beyond the right anastomosis. This was previously seen as well with minimal growth in size. 4. Bilateral pleural effusions right greater than left with lower lobe atelectatic changes. 5. Diverticulosis but no acute diverticulitis. 6. Constipation and stool impaction in the rectum. 7. Aortic valve calcification implicates aortic stenosis. RECOMMENDATIONS: Continued surveillance as per endograft protocol. Interpreted by: Tonia Escobar MD Signed by: Tonia Escobar MD 11/12/23 Final resultNormalMercy Providence HealthCREATININE W/GFRon 25-55-7488Rulenvzsfj [Mass/Vol]1.20 mg/dLHigh(0.52 - 1.04)Brian ClinicComment on above:Order Comment: *STAT* PERFORMED AT: [facility] [id number] By: #### CRE #### [facility] [address] [place] [address], [address] [phone]-CNOCRMW AMER52.3 ML/M1.7Low(60.0 - 140.1)Brian ClinicComment on above:Order Comment: *STAT* PERFORMED AT: [facility] [id number] By: #### CRE #### [facility] [address] [place] [address], [address] [phone]-FPM AFRIC-AMER43.2 ML/M1.7Low(60.0 - 115.8)Brian ClinicComment on above:Order Comment: *STAT* PERFORMED AT: [facility] [id number] By: #### CRE #### [facility] [address] [place] [address], [address] POCT Creatinineon 55-37-6286Mhbtlqzbve [Mass/Vol]1.2 mg/dL0.6 - 1.4 mg/dLBON SECTomah Memorial Hospital Metabolic Panelon 79-06-8947Wygxf gap [Moles/Vol]13.2 mmol/LNormal6.0-15.0 [facility] HospitalComment on above:Performed By: #### BMP #### [facility] [address] [place] [address] USACalcium [Mass/Vol]8.8 mg/dLNormal8.6-10.3FChildren's Hospital for RehabilitationComment on above:Result Comment: PERFORMED BY: [place] [address] PATHOLOGIST CASH REGISTER BALANCER SLY BANKS M.D.Performed By: #### BMP #### [place] [address] USAChloride [Moles/Vol]105 mmol/YVdnklw05-758LoelwswioGalion Community HospitalComment on above:Performed By: #### BMP #### [place] [address] USACO2 [Moles/Vol]26.7 mmol/TCwglyr38.0-31.0[facility] HospitalComment on above:Performed By: #### BMP #### [facility] [address] [place] [address] USACreatinine [Mass/Vol]1.24 mg/dLHigh0.60-1.20[facility] HospitalComment on above:Performed By: #### BMP #### [facility] [address] [place] [address] USAGFR/1.73 sq M.predicted MDRD (S/P/Bld) [Vol rate/Area] 44.269 mL/min/{1.73_m2}NormalGalion Community HospitalComment on above: Performed By: #### BMP #### [place] [address] USAGlucose [Mass/Vol]106 mg/vJUtqq66-994HjcarxooqGalion Community HospitalComment on above:Result Comment: Random Glucose Reference Range is dependent on time and content of last meal. Glucose of more than 200 mg/dL in a nonstressed, ambulatory subject supports the diagnosis of Diabetes Mellitus. ADA recommended reference rangePerformed By: #### BMP #### [facility] [address] [place] [address] USAPotassium [Moles/Vol]3.9 mmol/LNormal3.5-5.1FChildren's Hospital for RehabilitationComment on above:Performed By: #### BMP #### [facility] [address] [place] [address] USASodium [Moles/Vol]141 mmol/YAlnjty790-811FbtzmmicgGalion Community HospitalComment on above:Performed By: #### BMP #### [facility] [address] [place] [address] USAUrea nitrogen [Mass/Vol]20 mg/dLNormal7-25[facility] HospitalComment on above:Performed By: #### BMP #### [facility] [address] [place] [id number] USACalcium [Mass/volume] in Serum or PlasmaOrdered By: Amie Ag on 29-88-8276Pjnkdrh [Mass/Vol]8.8 mg/dL8.6-10.3FChildren's Hospital for RehabilitationCarbon dioxide, total [Moles/volume] in Serum or Plasma Ordered By: Amie Ag on 06-57-2118CS1 [Moles/Vol]26.7 mmol/L21.0-31.0 [facility] HospitalChloride [Moles/volume] in Serum or Plasma Ordered By: Amie Ag on 36-77-1951Qcopxsjq [Moles/Vol]105 mmol/L98-107 [facility] HospitalCreatinine [Mass/volume] in Serum or Plasma Ordered By: Amie Ag on 42-84-3411Fjoyhjjjvy [Mass/Vol]1.24 mg/dL0.60-1.20 [facility] HospitalGlucose [Mass/volume] in Serum or PlasmaOrdered By: Amie Ag on 55-50-6263Wesrnca [Mass/Vol]106 mg/fW55-405HxixzuqmdGalion Community HospitalComment on above:ADA recommended reference rangeRandom Glucose Reference Range is dependent on time and content of last meal. Glucose of more than 200 mg/dL in a nonstressed, ambulatory subject supports the diagnosisof Diabetes Mellitus.No Panel InformationOrdered By: Amie Ag on 31-71-0002Nmnwkxxkn GFR (CKD-EPI)44.269 mL/MinGalion Community Hospital Pharmacy Creatinine Clearance (ChemN/[facility] CenterPotassium [Moles/volume] in Serum or PlasmaOrdered By: Amie Ag on 07-09-2022 Potassium [Moles/Vol]3.9 mmol/L3.5-5.1FAdams County Regional Medical Centererum or plasma anion gap determinationOrdered By: Amie Ag on 78-70-1508Dncpt gap [Moles/Vol]13.2 mmol/L6.0-15.0Paulding County Hospitalodium [Moles/volume] in Serum or PlasmaOrdered By: Amie Ag on 08-54-6454Baigui [Moles/Vol]141 mmol/M614-343JadzdwubvGalion Community HospitalUrea nitrogen [Mass/volume] in Serum or PlasmaOrdered By: Amie Ag on 40-65-5343Sdvs nitrogen [Mass/Vol]20 mg/dL7-[facility] HospitalPROF CHEM 8 (BAS METB)on 78-28-8593Kplrl gap [Moles/Vol]10.6 mmol/LNormalOhiohealth Southeastern Medical Center Comment on above:Performed By: #### BMP #### [facility] [address] [address] [address] Manny NelsonCalcium [Mass/Vol]9.1 mg/dLNormal8.5-10.1[facility] Comment on above:Performed By: #### BMP #### [facility] [address] [address] [address] Manny NelsonChloride [Moles/Vol]99 mmol/IVqkulb95-732SrqOhiohealth Southeastern Medical Center Comment on above:Performed By: #### BMP #### [facility] [address] [address] [address] Manny NelsonCO2 [Moles/Vol]32.2 mmol/LCritically high21.0-32.0Ohiohealth Southeastern Medical CenterComment on above:Performed By: #### BMP #### [facility] [address] [address] [address] Manny NelsonCreatinine [Mass/Vol]1.23 mg/dLCritically high0.55-1.02The Wayne HospitalComment on above:Performed By: #### BMP #### [facility] [address] [address] [address] Bryant ChangEGFR-AF HRWPZINT31 mL/min/1.44v5Pfvycsglus low>=60The [facility] HospitalComment on above:Performed By: #### BMP #### [facility] [address] [address] [address] Manny YusufGFR-NON AF AAQHUEBG77 mL/min/1.89u7Sodteabetd low>=60The [facility] HospitalComment on above:Performed By: #### BMP #### [facility] [address] [address] [address] Manny NelsonGlucose [Mass/Vol]134 mg/dLCritically hbop59-375Sit [facility] HospitalComment on above:Performed By: #### BMP #### [facility] [address] [place] [address] Dr. Manny NelsonPotassium [Moles/Vol]3.8 mmol/LNormal3.5-5.1[facility] Comment on above:Performed By: #### BMP #### [facility] [address] [address] [address] Manny NelsonSodium [Moles/Vol]138 mmol/EQzkynh657-148Rob [facility] Comment on above:Performed By: #### BMP #### [facility] [address] [address] [address] Manny NelsonUrea nitrogen [Mass/Vol]23.0 mg/dLCritically high7.0-18.0The [facility] HospitalComment on above:Performed By: #### BMP #### [facility] [address] [place] [address] Dr. Manny Bloom nitrogen/Creatinine [Mass ratio]18.7 mg/mgNormalThe Wayne HospitalComment on above:Performed By: #### BMP #### [facility] [address] [address] [address] Manny NelsonA1C with Estimated Average Gluon 69-99-0903Wmzopal [Mass/Vol]157 mg/dLNormBarney Children's Medical CenterComment on above:Result Comment: PERFORMED BY: [place] [address] PATHOLOGIST CASH REGISTER BALANCER SLY BANKS M.D.Performed By: #### TSH3, CBC, T4F, LIPID, CMP, [id number], A1C WT eA #### [facility] [address] [place] [id number] PIKSuT9y (Bld) [Mass fraction]7.1 %High4.3-5.6FChildren's Hospital for RehabilitationComment on above:Result Comment: Increased risk for diabetes: 5.7 - 6.4 diabetes: >6.4 glycemic control for adults with diabetes: <7.0Performed By: #### TSH3, CBC, T4F, LIPID, CMP, [id number], A1C WTH eA #### [place] [id number] USAAlbumin [Mass/volume] in Serum or PlasmaOrdered By: Amie Ag on 35-20-3305Wazkyym [Mass/Vol]3.7 g/dL3.2-5.5FChildren's Hospital for RehabilitationBasophils Auto (Bld) [#/Vol]Ordered By: Amie Ag on 47-54-4952Tqnkagkne (Bld) [#/Vol]0.0 10*3/uL0.0-0.2FChildren's Hospital for RehabilitationBasophils/100 WBC Auto (Bld)Ordered By: Amie Ag on 12-20-2021 Basophils/100 WBC (Bld)0.4 %.[facility] HospitalCholesterol [Mass/volume] in Serum or PlasmaOrdered By: Amie Ag on 12-20-2021 Cholesterol [Mass/Vol]153 mg/vO103-585DcxifjfwqGalion Community HospitalComment on above:Chol less than 200 mg/dl low riskChol 201-239 mg/dl borderline riskChol 240 mg/dl and greater high riskCholesterol in LDL Calc [Mass/Vol]Ordered By: Amie Ag on 37-14-6557Hudpaeiiccn in LDL [Mass/Vol]72 mg/dL0-100[facility] HospitalComment on above:LDL ATP III CLASSIFICATIONLDL less than 100 mg/dL OptimalLDL 100-129 mg/dL Near or above uursewzEUU005-172 mg/dL Borderline highLDL 160-189 mg/dL HighLDL greater than 189 mg/dL Very high Cholesterol in VLDL Calc [Mass/Vol]Ordered By: Amie Ag on 12-20-2021 Cholesterol in VLDL [Mass/Vol]38 mg/dLGalion Community HospitalComplete Blood Count Auto Diffon 27-15-6571Gtpswubtx (Bld) [#/Vol]0.0 10*3/uLNormal 0.0-0.2FChildren's Hospital for RehabilitationComment on above:Result Comment: PERFORMED BY: [place] [address] PATHOLOGIST CASH REGISTER BALANCER SLY BANKS M.D.Performed By: #### TSH3, CBC, T4F, LIPID, CMP, [id number], A1C WTH eA #### [facility] [address] [place] [address] USABasophils/100 WBC (Bld)0.4 %Normal.[facility] HospitalComment on above:Performed By: #### TSH3, CBC, T4F, LIPID, CMP, [id number], A1C WTH eA #### [facility] [address] [place] [address] USAEosinophils (Bld) [#/Vol]0.3 10*3/uLNormal0.0-0.45 [facility] HospitalComment on above:Performed By: #### TSH3, CBC, T4F, LIPID, CMP, [id number], A1C WTH eA #### [facility] [address] [place], [place] [address] USAEosinophils/100 WBC (Bld)4.0 %Normal.[facility] HospitalComment on above:Performed By: #### TSH3, CBC, T4F, LIPID, CMP, [id number], A1C WTH eA #### [place] [address] USAErythrocyte distribution width (RBC) [Ratio]14.1 %Normal 11.9-15.3FChildren's Hospital for RehabilitationComment on above:Performed By: #### TSH3, CBC, T4F, LIPID, CMP, [id number], A1C WTH eA #### [place] [address] USAHematocrit (Bld) [Volume fraction]38.7 %Vyaqlc64.0-46.4 [facility] HospitalComment on above:Performed By: #### TSH3, CBC, T4F, LIPID, CMP, [id number], A1C WTH eA #### [place] [address] USAHemoglobin (Bld) [Mass/Vol]12.5 g/tYQxrham99.8-15.4 [facility] HospitalComment on above:Performed By: #### TSH3, CBC, T4F, LIPID, CMP, [id number], A1C WTH eA #### [place] [address] USALymphocytes (Bld) [#/Vol]2.1 10*3/uLNormal1.00-4.8 [facility] HospitalComment on above:Performed By: #### TSH3, CBC, T4F, LIPID, CMP, [id number], A1C WTH eA #### [place] [address] USALymphocytes/100 WBC (Bld)24.7 %Normal.[facility] HospitalComment on above:Performed By: #### TSH3, CBC, T4F, LIPID, CMP, [id number], A1C WTH eA #### [place] [address] USAMCH (RBC) [Entitic mass]29.2 jkSzfonr09.7-34.3FChildren's Hospital for RehabilitationComment on above:Performed By: #### TSH3, CBC, T4F, LIPID, CMP, [id number], A1C WTH eA #### [address] [place] [address] USAMCV (RBC) [Entitic vol]90.3 iPNobudz45-864NnmnfvreoGalion Community HospitalComment on above:Performed By: #### TSH3, CBC, T4F, LIPID, CMP, [id number], A1C WTH eA #### [facility] [address] [place] [address] USAMean Corpuscular HGB Conc32.3 g/oIHnqolw58.0-35.0[facility] HospitalComment on above:Performed By: #### TSH3, CBC, T4F, LIPID, CMP, [id number], A1C WTH eA #### [place] [address] USAMonocytes (Bld) [#/Vol]0.4 10*3/uLNormal0.0-0.8[facility] HospitalComment on above:Performed By: #### TSH3, CBC, T4F, LIPID, CMP, [id number], A1C WTH eA #### [place] [address] USAMonocytes/100 WBC (Bld)4.9 %Normal.[facility] HospitalComment on above:Performed By: #### TSH3, CBC, T4F, LIPID, CMP, [id number], A1C WTH eA #### [place] [address] USANeutrophils (Bld) [#/Vol]5.6 10*3/uLNormal1.8-7.7FChildren's Hospital for RehabilitationComment on above:Performed By: #### TSH3, CBC, T4F, LIPID, CMP, [id number], A1C WTH eA #### [place] [address] USANeutrophils/100 WBC (Bld)66.0 %Normal.[facility] HospitalComment on above:Performed By: #### TSH3, CBC, T4F, LIPID, CMP, [id number], A1C WTH eA #### [place] [address] USANucleated RBC/100 WBC (Bld) [Ratio]0.1 %Normal0-0.5 [facility] HospitalComment on above:Performed By: #### TSH3, CBC, T4F, LIPID, CMP, [id number], A1C WTH eA #### [facility] [address] [place] [address] USAPlatelet mean volume (Bld) [Entitic vol]7.9 fLNormal 6.3-10.7FChildren's Hospital for RehabilitationComment on above:Performed By: #### TSH3, CBC, T4F, LIPID, CMP, [id number], A1C WTH eA #### [facility] [address] [place] [address] USAPlatelets (Bld) [#/Vol]296 10*3/lZToqvqh753-863UrhpetauyGalion Community HospitalComment on above:Performed By: #### TSH3, CBC, T4F, LIPID, CMP, [id number], A1C WTH eA #### [facility] [address] [place] [address] USARBC (Bld) [#/Vol]4.29 10*6/uLNormal3.60-5.00[facility] HospitalComment on above:Performed By: #### TSH3, CBC, T4F, LIPID, CMP, [id number], A1C WTH eA #### [place] [address] USAWBC (Bld) [#/Vol]8.4 10*3/uLNormal4.5-11.0[facility] HospitalComment on above:Performed By: #### TSH3, CBC, T4F, LIPID, CMP, [id number], A1C WTH eA #### [facility] [address] [place] [address] USAComprehensive Metabolic Panelon 55-00-1758Dijpipx [Mass/Vol]3.7 g/dLNormal3.2-5.5FChildren's Hospital for RehabilitationComment on above:Order Comment: PT FASTED 12 HOURSPerformed By: #### TSH3, CBC, T4F, LIPID, CMP, [id number], A1C WTH eA #### [facility] [address] [place] [id number] USAAlbumin/Globulin [Mass ratio]1.2 {ratio}NormalGalion Community HospitalComment on above:Order Comment: PT FASTED 12 HOURS Performed By: #### TSH3, CBC, T4F, LIPID, CMP, [id number], A1C WTH eA #### [facility] [address] [place] [id number] USAALP [Catalytic activity/Vol]73 U/XDtffpw65-66IblxzrhtkGalion Community HospitalComment on above:Order Comment: PT FASTED 12 HOURS Performed By: #### TSH3, CBC, T4F, LIPID, CMP, [id number], A1C WTH eA #### [facility] [address] [place] [address] USAALT [Catalytic activity/Vol]21 U/XVnfjyg55-81YwefrtsekGalion Community HospitalComment on above:Order Comment: PT FASTED 12 HOURS Performed By: #### TSH3, CBC, T4F, LIPID, CMP, [id number], A1C WTH eA #### [facility] [address] [place] [address] USAAnion gap [Moles/Vol]14.5 mmol/LNormal6.0-15.0[facility] HospitalComment on above:Order Comment: PT FASTED 12 HOURS Performed By: #### TSH3, CBC, T4F, LIPID, CMP, [id number], A1C WTH eA #### [facility] [address] [place] [id number] USAAST [Catalytic activity/Vol]24 U/EUltadp43-87GdkhfqlvsGalion Community HospitalComment on above:Order Comment: PT FASTED 12 HOURS Performed By: #### TSH3, CBC, T4F, LIPID, CMP, [id number], A1C WTH eA #### [facility] [address] [place] [id number] USABilirubin [Mass/Vol]0.6 mg/dLNormal0.3-1.2FChildren's Hospital for RehabilitationComment on above:Order Comment: PT FASTED 12 HOURS Performed By: #### TSH3, CBC, T4F, LIPID, CMP, [id number], A1C WTH eA #### [facility] [address] [place] [address] USACalcium [Mass/Vol]9.5 mg/dLNormal8.2-10.2FChildren's Hospital for RehabilitationComment on above:Order Comment: PT FASTED 12 HOURS Performed By: #### TSH3, CBC, T4F, LIPID, CMP, [id number], A1C WTH eA #### [place] [address] USAChloride [Moles/Vol]101 mmol/QQvjfsj37-289ZdahncgqxGalion Community HospitalComment on above:Order Comment: PT FASTED 12 HOURS Performed By: #### TSH3, CBC, T4F, LIPID, CMP, [id number], A1C WTH eA #### [place] [address] USACO2 [Moles/Vol]28.0 mmol/HSwuozv63.0-30.0[facility] HospitalComment on above:Order Comment: PT FASTED 12 HOURS Performed By: #### TSH3, CBC, T4F, LIPID, CMP, [id number], A1C WTH eA #### [place] [address] USACreatinine [Mass/Vol]1.30 mg/dLHigh0.44-1.03[facility] HospitalComment on above:Order Comment: PT FASTED 12 HOURS Performed By: #### TSH3, CBC, T4F, LIPID, CMP, [id number], A1C WTH eA #### [place] [address] USAEstimated GFR ( Ploohhw83OfdjwxBaybjzfsmGalion Community HospitalComment on above:Order Comment: PT FASTED 12 HOURSResult Comment: GFR estimated reference range: According to KDOQI guidelines, <60 ml/min/1.73m2 is sufficient to diagnose a patient with chronic kidney disease.Performed By: #### TSH3, CBC, T4F, LIPID, CMP, [id number], A1C WTH eA #### [address] [place] [address] USAEstimated GFR (Non- Eu86WhagftJlllmwatqPremier Health Miami Valley Hospital NorthComment on above:Order Comment: PT FASTED 12 HOURSPerformed By: #### TSH3, CBC, T4F, LIPID, CMP, [id number], A1C WTH eA #### [facility] [address] [place] [id number] USAGlobulin (S) [Mass/Vol]3.0 g/dLNormBarney Children's Medical CenterComment on above:Order Comment: PT FASTED 12 HOURSPerformed By: #### TSH3, CBC, T4F, LIPID, CMP, [id number], A1C WTH eA #### [facility] [address] [place] [address] USAGlucose [Mass/Vol]115 mg/uRQoaj85-794VrrglmnfmGalion Community HospitalComment on above:Order Comment: PT FASTED 12 HOURSResult Comment: Random Glucose Reference Range is dependent on time and content of last meal. Glucose of more than 200 mg/dL in a nonstressed, ambulatory subject supports the diagnosis of Diabetes Mellitus. ADA recommended reference rangePerformed By: #### TSH3, CBC, T4F, LIPID, CMP, [id number], A1C WTH eA #### [place] [address] USAPotassium [Moles/Vol]4.5 mmol/LNormal3.5-5.1FChildren's Hospital for RehabilitationComment on above:Order Comment: PT FASTED 12 HOURS Performed By: #### TSH3, CBC, T4F, LIPID, CMP, [id number], A1C WTH eA #### [facility] [address] [place] [id number] USAProtein [Mass/Vol]6.7 g/dLNormal6.1-7.9[facility] HospitalComment on above:Order Comment: PT FASTED 12 HOURSPerformed By: #### TSH3, CBC, T4F, LIPID, CMP, [id number], A1C WTH eA #### [facility] [address] [place] [id number] USASodium [Moles/Vol]139 mmol/AOqlazt858-668DoyzvenbfGalion Community HospitalComment on above:Order Comment: PT FASTED 12 HOURS Performed By: #### TSH3, CBC, T4F, LIPID, CMP, [id number], A1C [facility] eA #### [facility] [address] [place] [id number] USAUrea nitrogen [Mass/Vol]26 mg/dLBraxton County Memorial Hospital9-23[facility] HospitalComment on above:Order Comment: PT FASTED 12 HOURSPerformed By: #### TSH3, CBC, T4F, LIPID, CMP, [id number], A1C [facility] eA #### [facility] [address] [place] [address] USACreatinine and Glomerular filtration rate.predicted panel (S/P/Bld)Ordered By: Amie Ag on 15-12-9307Satdyijtko [Mass/Vol]1.30 mg/dL 0.44-1.03[facility] Community HospitalEosinophils Auto (Bld) [#/Vol]Ordered By: Amie Ag on 92-83-8369Izopncdhxmg (Bld) [#/Vol]0.3 10*3/uL0.0-0.45 [facility] HospitalEosinophils/100 WBC Auto (Bld)Ordered By: Amie Ag on 89-63-2424Hyvdnpkydbp/100 WBC (Bld)4.0 %.[facility] Community HospitalErythrocyte distribution width Auto (RBC) [Ratio]Ordered By: Amie Ag on 39-18-8936Zspswevgxgb distribution width (RBC) [Ratio]14.1 % 11.9-15.3FChildren's Hospital for RehabilitationEstimated glomerular filtration rate (GFR) non- AmericanOrdered By: Amie Ag on 08-80-9047KZA/1.73 sq M.predicted among non-blacks MDRD (S/P/Bld) [Vol rate/Area]40 mL/MinGalion Community HospitalFree T4 (Free Thyroxine)on 70-90-6686Ycoc T4 [Mass/Vol] 0.59 ng/dLLow0.61-1.12[facility] HospitalComment on above:Order Comment: PT FASTED 12 HOURSPerformed By: #### TSH3, CBC, T4F, LIPID, CMP, [id number], A1C WTH eA #### [facility] [address] [place] [address] USAGlobulin Calc (S) [Mass/Vol]Ordered By: Amie Ag on 65-36-5377Snzszxxl (S) [Mass/Vol]3.0 g/dLGalion Community Hospital Hematocrit Auto (Bld) [Volume fraction]Ordered By: Amie gA on 12-20-2021 Hematocrit (Bld) [Volume fraction]38.7 %34.0-46.4FChildren's Hospital for RehabilitationHemoglobin [Mass/volume] in BloodOrdered By: Amie Ag on 12-20-2021 Hemoglobin (Bld) [Mass/Vol]12.5 g/dL11.8-15.4FChildren's Hospital for Rehabilitation Laboratory - Hematology and Cell countsOrdered By: Amie Ag on 12-20-2021 Nucleated RBC/100 WBC (Bld) [Ratio]0.1 %0-0.5FChildren's Hospital for Rehabilitation Leukocytes [#/volume] in Blood by Automated countOrdered By: Amie Ag on 54-25-6193JBI (Bld) [#/Vol]8.4 10*3/uL4.5-11.0[facility] Lipid Panelon 65-62-2526Qbrcwskkler [Mass/Vol]153 mg/aHUwabfn398-704IyvcbwdpvGalion Community HospitalComment on above:Order Comment: PT FASTED 12 HOURSResult Comment: Chol less than 200 mg/dl low risk Chol 201-239 mg/dl borderline risk Chol 240 mg/dl and greater high riskPerformed By: #### TSH3, CBC, T4F, LIPID, CMP, [id number], A1C WTH eA #### [facility] [address] [place] [address] USACholesterol in HDL [Mass/Vol]43 mg/mZGzskym94-09FpokwjemfGalion Community HospitalComment on above:Order Comment: PT FASTED 12 HOURSResult Comment: HDL CHOL ATP-III CLASSIFICATION Cardiovascular Risk HDL > or equal to 60 mg/dL LOW HDL < 40 mg/dL HIGHPerformed By: #### TSH3, CBC, T4F, LIPID, CMP, [id number], A1C WTH eA #### [facility] [address] [place] [address] USACholesterol.total/Cholesterol in HDL [Mass ratio]3.6 {ratio}Normal<5.0[facility] HospitalComment on above:Order Comment: PT FASTED 12 HOURSPerformed By: #### TSH3, CBC, T4F, LIPID, CMP, [id number], A1C WTH eA #### [facility] [address] [place] [address] USALDL Cholesterol,Vgivkrbavj81 mg/dLNormal0-100[facility] HospitalComment on above:Order Comment: PT FASTED 12 HOURSResult Comment: LDL ATP III CLASSIFICATION LDL less than 100 mg/dL Optimal LDL 100-129 mg/dL Near or above optimal LDL 130-159 mg/dL Borderline high LDL 160-189 mg/dL High LDL greater than 189 mg/dL Very highPerformed By: #### TSH3, CBC, T4F, LIPID, CMP, [id number], A1C WT eA #### [facility] [address] [place] [address] USATriglyceride w/Ojenyz305 mg/mPYvjp64-273RqrkdhfanGalion Community HospitalComment on above:Order Comment: PT FASTED 12 HOURSResult Comment: TRIG ATP III CLASSIFICATION TRIG less than 150 mg/dL Normal TRIG 150-199 mg/dL Borderline high TRIG 200-500 mg/dL High TRIG greater than 500 mg/dL Very high Standard traceable to the Center for Disease Conrtrol and Prevention (CDC) test method.Performed By: #### TSH3, CBC, T4F, LIPID, CMP, [id number], A1C WTH eA #### [facility] [address] [place] [address] USAVLDL WPWHFCIFZCW59 mg/dLNormBarney Children's Medical CenterComment on above:Order Comment: PT FASTED 12 HOURSPerformed By: #### TSH3, CBC, T4F, LIPID, CMP, [id number], A1C WTH eA #### [facility] [address] [place] [address] USALymphocytes Auto (Bld) [#/Vol]Ordered By: Amie Ag on 20-15-9211Oxbedybpepc (Bld) [#/Vol]2.1 10*3/uL1.00-4.8[facility] HospitalLymphocytes/100 WBC Auto (Bld)Ordered By: Amie Ag on 03-13-0827Zqykfjcddmc/100 WBC (Bld)24.7 %.[facility] CenterH Auto (RBC) [Entitic mass]Ordered By: Amie Ag on 17-03-4625EJS (RBC) [Entitic mass]29.2 pg24.7-34.3FChildren's Hospital for RehabilitationMCHC Auto (RBC) [Mass/Vol]Ordered By: Amie Ag on 67-37-9818QXDQ (RBC) [Mass/Vol]32.3 g/dL 32.0-35.0[facility] HospitalMCV Auto (RBC) [Entitic vol]Ordered By: Amie Ag on 53-11-7948NXN (RBC) [Entitic vol]90.3 fL22-365SmvmfmzrdGalion Community HospitalMonocytes Auto (Bld) [#/Vol]Ordered By: Amie Ag on 08-71-3118Cepjlhljz (Bld) [#/Vol]0.4 10*3/uL0.0-0.8[facility] HospitalMonocytes/100 WBC Auto (Bld)Ordered By: Amie Ag on 12-20-2021 Monocytes/100 WBC (Bld)4.9 %.[facility] HospitalNeutrophils Auto (Bld) [#/Vol]Ordered By: Amie Ag on 54-69-3224Anuieebcnqb (Bld) [#/Vol] 5.6 10*3/uL1.8-7.7FChildren's Hospital for RehabilitationNeutrophils/100 WBC Auto (Bld)Ordered By: Amie Ag on 52-81-3387Gucksdjhjfc/100 WBC (Bld)66.0 %. [facility] HospitalNo Panel InformationOrdered By: Amie Ag on 112251-Wrdmbxk Vitamin D Total67.6 ng/eK95-218QedgwagqpGalion Community HospitalComment on above:VITAMIN D STATUS 25(OH)VITAMIN D RANGE (ng/mL) Deficient <20 Insufficient 20 to <50Ehmyrjanhn70 to 100Reference: Zoran MF,Rocio NC, Bonnie BUI, et al. Evaluation,treatment, and prevention of vitamin D deficiency; an Endocrine Society clinical practice guideline. JCEM. 2010; 96(7):1911-30.Estimated GFR ()48 mL/MinGalion Community HospitalComment on above:GFR estimated reference range: According to KDOQI guidelines, <60 ml/min/1.73m2 is sufficient todiagnose a patient with chronic kidney disease.Pharmacy Creatinine Clearance (ChemN/[facility] Medical CenterPlatelet mean volume Auto (Bld) [Entitic vol]Ordered By: Amie Ag on 41-95-5726Gadxgzst mean volume (Bld) [Entitic vol]7.9 fL6.3-10.7 [facility] HospitalPlatelets Auto (Bld) [#/Vol]Ordered By: Amie Ag on 25-76-6937Pavhhzakd (Bld) [#/Vol]296 10*3/uE529-201LoloziojjGalion Community HospitalProtein [Mass/volume] in Serum or PlasmaOrdered By: Amie Ag on 26-77-7742Sjqdtvm [Mass/Vol]6.7 g/dL6.1-7.9[facility] HospitalRBC Auto (Bld) [#/Vol]Ordered By: Amie Ag on 91-57-8032ONA (Bld) [#/Vol]4.29 10*6/uL3.60-5.00Paulding County Hospitalerum or plasma alanine aminotransferase measurement without P-5'-P (enzymatic activiOrdered By: Amie Ag on 05-15-2242WOP No additional P-5'-P [Catalytic activity/Vol]21 U/D26-28NxqcaxppcPaulding County Hospitalerum or plasma albumin/globulin mass ratioOrdered By: Amie Ag on 02-82-2050Rzdpghl/Globulin [Mass ratio]1.2 {ratio}Paulding County Hospitalerum or plasma alkaline phosphatase measurement (enzymatic activity/volume)Ordered By: Amie Ag on 12-20-2021 ALP [Catalytic activity/Vol]73 U/U69-20EwrngurciPaulding County Hospitalerum or plasma anion gap determinationOrdered By: Amie Ag on 40-62-4677Prdrs gap [Moles/Vol]14.5 mmol/L6.0-15.0Paul[facility] County Hospitalerum or plasma aspartate aminotransferase measurement (enzymatic activity/volume)Ordered By: Amie Ag on 15-72-0282UZH [Catalytic activity/Vol]24 U/Z77-12PyziqlkroPaulding County Hospitalerum or plasma calcium measurement (mass/volume)Ordered By: Amie Ag on 13-88-6406Tcafyir [Mass/Vol]9.5 mg/dL8.2-10.2FAdams County Regional Medical Centererum or plasma chloride measurement (moles/volume) Ordered By: Amie Ag 83-55-3845Dzzgakfe [Moles/Vol]101 mmol/L95-114 [facility] Hospitalerum or plasma glucose measurement (mass/volume)Ordered By: Amie Ag on 02-56-6414Kfmamax [Mass/Vol]115 mg/dL 70-100[facility] HospitalComment on above:ADA recommended reference rangeRandom Glucose Reference Range is dependent on time and content of last meal. Glucose of more than 200 mg/dL in a nonstressed, ambulatory subject supports the diagnosisof Diabetes Mellitus.Serum or plasma high density lipoprotein (HDL) cholesterol measurementOrdered By: Amie Ag 41-07-2357Tljybffsdks in HDL [Mass/Vol]43 mg/dJ96-65OatdtgttsGalion Community HospitalComment on above:HDL CHOL ATP-III CLASSIFICATION Cardiovascular RiskHDL > or equal to 60 mg/dL LOWHDL < 40 mg/dL HIGHSerum or plasma potassium measurement (moles/volume)Ordered By: Amie Ag 46-27-8655Lamanlhxu [Moles/Vol]4.5 mmol/L3.5-5.1FAdams County Regional Medical Centererum or plasma sodium measurement (moles/volume)Ordered By: Amie Ag 01-57-3020Gcvquc [Moles/Vol]139 mmol/Z135-037ObbceetgbPaulding County Hospitalerum or plasma total bilirubin measurement (mass/volume)Ordered By: Amie Ag 17-90-0016Cnrdngsel [Mass/Vol]0.6 mg/dL0.3-1.2FAdams County Regional Medical Centererum or plasma total carbon dioxide measurement (moles/volume)Ordered By: Amie Ag on 40-16-8598EL6 [Moles/Vol]28.0 mmol/L22.0-30.0[facility] Serum or plasma total cholesterol/high density lipoprotein (HDL) cholesterol mass ratOrdered By: Amie Ag on 10-62-6781Xoktgvkfiqn.total/Cholesterol in HDL [Mass ratio]3.6 {ratio}<5.0Paul[facility] County Hospitalerum or plasma urea nitrogen measurement (mass/volume)Ordered By: Amie Ag on 12-20-2021 Urea nitrogen [Mass/Vol]26 mg/dL9-23[facility] HospitalTS DL <= 0.005 mIU/L QnOrdered By: Amie Ag on 15-85-1985CWJ Qn3.60 m[IU]/L 0.45-5.33[facility] HospitalThyroid Stimulating Hormoneon 26-85-8112ICA Qn3.60 m[IU]/LNormal0.45-5.33[facility] Comment on above:Order Comment: PT FASTED 12 HOURSPerformed By: #### TSH3, CBC, T4F, LIPID, CMP, [id number], A1C WTH eA #### [facility] [address] [place] [address] USAThyroxine (T4) free [Mass/volume] in Serum or Plasma Ordered By: Amie Ag on 07-53-6142Azij T4 [Mass/Vol]0.59 ng/dL0.61-1.12 [facility] HospitalTriglyceride [Mass/volume] in Serum or Plasma Ordered By: Amie Ag on 24-93-5951Xycrzcnlrakm [Mass/Vol]191 mg/lS04-045 [facility] HospitalComment on above:TRIG ATP III CLASSIFICATIONTRIG less than 150 mg/dL NormalTRIG 150-199 mg/dL Borderline highTRIG 200-500 mg/dL High TRIG greater than 500 mg/dL Very highStandard traceable to the Center for Disease Conrtrol and Prevention (CDC) test method. Vitamin D 25 Hydroxy Totalon 11-57-0101Eiwehdw D 25 Hydroxy Total67.6 ng/mL Pylgse89-946IfzcbeyxgGalion Community HospitalComment on above:Order Comment: PT FASTED 12 HOURSResult Comment: VITAMIN D STATUS 25(OH)VITAMIN D RANGE (ng/mL) Deficient <20 Insufficient 20 to <30 Sufficient 30 to 100 Reference: Zoran MF,Rocio NC, Bonnie BUI, et al. Evaluation,treatment, and prevention of vitamin D deficiency; an Endocrine Society clinical practice guideline. JCEM. 2010; 96(7):1911-30. PERFORMED BY: [place] [id number] PATHOLOGIST CASH REGISTER BALANCER SLY BANKS M.D.Performed By: #### TSH3, CBC, T4F, LIPID, CMP, [id number], A1C WTH eA #### [address] [address] USAOperative Reporton [id number] ReportMR#: [id number] I [facility] Pt. Name: Krissy Owens Room #: 3CD [id number] Discharge 06/19/2018 Date: Birthdate: 1945 OPERATIVE REPORT DATE OF SURGERY: 06/18/2018 SURGEON: Paul Last M.D. PREOPERATIVE DIAGNOSIS: Abdominal aortic aneurysm, increased size 7.5 cm endotension status post rupture abdominal aortic aneurysm, 2016. Status post aortomonoiliac stent graft with the right to left femoral-femoral. 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 POSTOPERATIVE DIAGNOSIS: Abdominal aortic aneurysm, increased size 7.5 cm endotension status post rupture abdominal aortic aneurysm, 2016. Status post aortomonoiliac stent graft with the right to left femoral-femoral. 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 CERTIFIED MEDICINE AIDE: Dr. Plaza. NAME OF THE OPERATION: Right [place] [address], 9-Swedish introducer, intraoperative abdominal aortogram [place]oscopic [place], [place] [address]. Redo aortoaortic [place] [address]-97, Endurant cuff 49 x 28 x 28. The final part of the procedure is endo stapling, endo [place] [address] and primary closure. BRIEF CLINICAL SUMMARY: The patient is a 73-year-old patient, who had an abdominal aortic aneurysm rupture in the summer of 2015. The patient had done very well aortomonoiliac stent graft was performed emergently with the xbetu-wj-oqwc femoral-femoral crossover. The patient was found to have a type 2 endoleak which was composed by inferior mesenteric artery and bilateral lumbar arteries branches that were feeding the sac of the aneurysm. The aneurysm was large and remained at the level of 6.2 cm. In 2018, inferior mesenteric artery ligation was performed robotically assisted laparoscopically with [facility]. Inferior mesenteric artery was ligated and we followed the patient as she clinically did pretty well. Over the last month, we had performed a surveillance CT angiogram and this one disclosed the aneurysm sac getting larger to size of 7.5. Despite the fact that the patient had in large sac, we could not identify the inferior mesenteric artery nor the lumbar arteries. There was no identifiable visualization of any leak of any kind in the sac of the aneurysm, carefully evaluating there was a possibility that there was a positional endoleak type 1 proximally at the level of the junction of the left renal artery and the graft, possibility that this endoleak might be temporary, intermittent, and positional. With that in mind and has explained to the patient and the family and because the aneurysm sac is getting larger, we proceeded with intervention and reusing another cuff of the aorta with a stapling device for endo anchoring. The patient agreed. Consent was obtained. Discussed with Anesthesia Department and we transferred the patient to room 14. TECHNIQUE: The patient was in supine position under general anesthesia with endotracheal intubation and with the assistance of the arterial line and IV fluids access. We proceeded to prepare the abdomen and both groins with Betadine. Sterile drapes were applied and Betadine impregnated Vi-Drape was used. The patient had good femoral pulse on the right and on the left, and on the right according to the CTA 3D reconstruction, the patient had a nice curve on the right femoral graft. However, there was a zigzag in the artery at the external iliac level transitionally with a stent graft. We proceeded with dissection and open exposure with a transverse incision. The graft was found without any technical problems. According to the weight base, the patient received 06590 units of heparin and we proceeded with #18-gauge needle with a short J-wire 0.035 and an axis with a #9 introducer. Under fluoroscopic approach with a 0.035 angled Glidewire and a guiding catheter, we proceeded to get access to the aorta. It was a challenge to pass that iliac transitional area with the stent graft and the host artery, but we finally got the wire into the aorta. A Cobra catheter was placed to do the abdominal aortogram, that is a pigtail and the abdominal aortogram showed that there was visualization of both renal arteries, the neck, the stent graft, the aortomonoiliac graft, and we did not see any form of type 2 or type 1 endoleak. This arteriogram was performed in an GOODWIN projection in order to maximize the visualization of the left renal aortic junction and the stent graft. In view of the absence of any endoleak, we proceeded to prepare for the placement of the stent graft. We selected Endurant 49 x 28 x 28 and this Endurant graft cuff was delivered very nicely right at the renal stent aortic graft from 2015. We used the suprarenal fixation that was delivered very nicely, and we did a ballooning of the cuff. We then proceeded to do the endo stapling which we used the APTUS was used for martina for delivery in the circumferential area of the 2 stent graft circumferentially, that is the 360 degree. We then proceeded to the final arteriogram and had no technical problems with each of the new endo anchoring. This arteriogram disclosed no evidence of any type of abnormality of endoleak. We proceeded to remove all the wires and catheters. The access of the right femoral graft was controlled with Allis clamps and 4-0 Prolene single interrupted sutures and we had a good control of the access site. We controlled Dopplers and we had good flow. We proceeded not to reverse the heparin and the patient's right groin was closed in layers, subcutaneous tissue with 3-0 chromic interruptedly and subcuticular monofilament dressing occlusive with 4x4 and tape, and the procedure was concluded very satisfactorily and the patient was transferred to recovery room. Electronically Signed by: Paul Last M.D. 07/10/2018 02:29 P Paul Last M.D. Date Dict: 06/21/2018/07:22 A/Paul Last M.D. Date Trans: 06/21/2018 08:03 A/mmo DN_[id number] cc: Amie Ag M.D. [facility]3 [facility] [address]RpzzfbZhrDelaware County HospitalBASIC METABOLIC PANELon 30-67-7919Lchndbq [Mass/Vol]8.3 mg/dLLow8.6-10.3The [facility] HospitalComment on above:Order Comment: No: Do not add to previous draw Performed By: #### [id number] #### [facility] [address] [place] [address], USAChloride [Moles/Vol]102 mmol/CFuwdmk15-153Vsq [facility] HospitalComment on above:Order Comment: No: Do not add to previous drawPerformed By: #### [id number] #### [facility] [address] [place] [address], USACO2 [Moles/Vol]28 mmol/ACojyfh60-85Cly [facility] HospitalComment on above:Order Comment: No: Do not add to previous draw Performed By: #### [id number] #### [facility] [address] [place] [address], USACreatinine [Mass/Vol]0.87 mg/dLNormal0.60-1.20The [facility] HospitalComment on above:Order Comment: No: Do not add to previous drawPerformed By: #### [id number] #### [facility] [address] [place] [address], USAGFR/1.73 sq M predicted among blacks MDRD (S/P/Bld) [Vol rate/Area]mL/min/{1.73_m2}Normal>60The [facility] Comment on above:Order Comment: No: Do not add to previous drawResult Comment: Calculation may not be valid for patients over 70 yearsPerformed By: #### [id number] #### [facility] [address] [place] [address], USAGFR/1.73 sq M predicted among non-blacks MDRD (S/P/Bld) [Vol rate/Area]mL/min/{1.73_m2}Normal>60The [facility] Comment on above:Order Comment: No: Do not add to previous drawResult Comment: Calculation may not be valid for patients over 70 yearsPerformed By: #### [id number] #### [facility] [address] [place] [address], USAGlucose [Mass/Vol]176 mg/iYYric15-942Nto [facility] HospitalComment on above:Order Comment: No: Do not add to previous drawPerformed By: #### 65610 #### [facility] [address] [place] [address], USAPotassium [Moles/Vol]4.2 mmol/LNormal3.5-5.1The [facility] HospitalComment on above:Order Comment: No: Do not add to previous drawPerformed By: #### 57337 #### [facility] [address] [place] [address], USASodium [Moles/Vol]138 mmol/KWyxzkg328-539Vvz [facility] HospitalComment on above:Order Comment: No: Do not add to previous drawPerformed By: #### [id number] #### [facility] [address] [place] [address], USAUrea nitrogen [Mass/Vol]13 mg/dLNormal7-25The [facility] HospitalComment on above:Order Comment: No: Do not add to previous drawPerformed By: #### 54656 #### [facility] [address] [place] [address], USACBC COMPLETE BLOOD COUNTon 74-61-6420Hkcakhpmayp distribution width (RBC) [Ratio]13.2 %Lfnbjw20.5-15.0The [facility] HospitalComment on above:Order Comment: No: Do not add to previous draw Performed By: #### [id number] #### [facility] [address] [place] [address], USAHematocrit (Bld) [Volume fraction]37.8 %Rfzvbg69.0-45.0The [facility] HospitalComment on above:Order Comment: No: Do not add to previous drawPerformed By: #### 87147 #### [facility] [address] [place] [address], USAHemoglobin (Bld) [Mass/Vol]11.7 g/dLLow12.0-15.0The [facility] HospitalComment on above:Order Comment: No: Do not add to previous drawPerformed By: #### 60277 #### [facility] [address] [place] [address], PRESBYTER[facility] FE MEDICAL CENTERMCH (RBC) [Entitic mass]30.4 faTbfnvm68.0-33.0The [facility] HospitalComment on above:Order Comment: No: Do not add to previous drawPerformed By: #### [id number] #### [facility] [address] [place] [address], USAMCHC (RBC) [Mass/Vol]31.0 g/dLLow32.0-35.0The [facility] HospitalComment on above:Order Comment: No: Do not add to previous drawPerformed By: #### [id number] #### [facility] [address] [place] [address], USAMCV (RBC) [Entitic vol]98.2 uTUmub64.0-98.0The [facility] HospitalComment on above:Order Comment: No: Do not add to previous drawPerformed By: #### [id number] #### [facility] [address] [place] [address], USANucleated RBC/100 WBC (Bld) [Ratio]0 %Normal0-0The [facility] HospitalComment on above:Order Comment: No: Do not add to previous drawPerformed By: #### 26735 #### [facility] [address] [place] [address], USAPLAT POC452 10*3/hVNootju069-772Lsk [facility] HospitalComment on above:Order Comment: No: Do not add to previous draw Performed By: #### [id number] #### [facility] [address] [place] [address], USARBC (Bld) [#/Vol]3.85 10*6/uLNormal3.80-5.00The [facility] HospitalComment on above:Order Comment: No: Do not add to previous drawPerformed By: #### 53415 #### [facility] [address] [place] [address], USAWBC (Bld) [#/Vol]9.22 10*3/uLNormal4.00-10.60The [facility] HospitalComment on above:Order Comment: No: Do not add to previous drawPerformed By: #### 86541 #### [facility] [address] [place] [address], USAMAGNESIUM BLOODon 81-69-4626Evidwfghh [Mass/Vol]1.9 mg/dL Normal1.9-2.7The [facility] HospitalComment on above:Order Comment: No: Do not add to previous drawPerformed By: #### 16432 #### [facility] [address] [place] [address], USAPHOSPHORUS BLOODon 27-32-3736Umeejvthu [Mass/Vol]4.4 mg/dL Normal2.5-5.0The [facility] HospitalComment on above:Order Comment: No: Do not add to previous drawPerformed By: #### 10909 #### [facility] [address] [place] [address], USAPOC GLUCOSE LABon 06-67-0698Rzyhtlq [Mass/Vol]173 mg/dLHigh 70-100The [facility] HospitalComment on above:Performed By: #### 87103 #### [facility] [address] [place] [address], USAGlucose [Mass/Vol]162 mg/nSXhif30-550Qys [facility] HospitalComment on above:Performed By: #### 79933 #### [facility] [address] [place] [address], USAGlucose [Mass/Vol]172 mg/vIScso50-913Bfx [facility] HospitalComment on above:Performed By: #### 28029 #### [facility] [address] [place] [address], USABASIC METABOLIC PANELon 89-67-4434Muqbuuo [Mass/Vol]8.8 mg/dLNormal8.6-10.3The [facility] HospitalComment on above:Order Comment: No: Do not add to previous drawPerformed By: #### 49109 #### [facility] [address] [place] [address], USAChloride [Moles/Vol]101 mmol/PCzyfpe23-999Cgb [facility] HospitalComment on above:Order Comment: No: Do not add to previous drawPerformed By: #### 49597 #### [facility] [address] [facility] [place] [address], USACO2 [Moles/Vol]29 mmol/WYkcboq65-23Mim [facility] HospitalComment on above:Order Comment: No: Do not add to previous draw Performed By: #### 42540 #### [facility] [address] [place] [address], USACreatinine [Mass/Vol]0.95 mg/dLNormal0.60-1.20The [facility] HospitalComment on above:Order Comment: No: Do not add to previous drawPerformed By: #### 61223 #### [facility] [address] [place] [address], USAGFR/1.73 sq M predicted among blacks MDRD (S/P/Bld) [Vol rate/Area]mL/min/{1.73_m2}Normal>60The [facility] Comment on above:Order Comment: No: Do not add to previous drawResult Comment: Calculation may not be valid for patients over 70 yearsPerformed By: #### 10403 #### [facility] [address] [place] [address], USAGFR/1.73 sq M predicted among non-blacks MDRD (S/P/Bld) [Vol rate/Area]57 ml/min/1.73sq mAbnormal>60The [facility] HospitalComment on above:Order Comment: No: Do not add to previous drawResult Comment: Calculation may not be valid for patients over 70 yearsPerformed By: #### 17768 #### [facility] [address] [place] [address], USAGlucose [Mass/Vol]151 mg/iYDmyt47-647Tie [facility] HospitalComment on above:Order Comment: No: Do not add to previous drawPerformed By: #### 38220 #### [facility] [address] [place] [address], USAPotassium [Moles/Vol]3.7 mmol/LNormal3.5-5.1The [facility] HospitalComment on above:Order Comment: No: Do not add to previous drawPerformed By: #### 45395 #### [facility] [address] [place] [address], USASodium [Moles/Vol]139 mmol/PLxpkva304-381Yne [facility] HospitalComment on above:Order Comment: No: Do not add to previous drawPerformed By: #### 17106 #### [facility] [address] [place] [address], USAUrea nitrogen [Mass/Vol]18 mg/dLNormal7-25The [facility] HospitalComment on above:Order Comment: No: Do not add to previous drawPerformed By: #### 19855 #### [facility] [address] [place] [address], USACBC COMPLETE BLOOD COUNTon 71-20-3959Najqfxifulk distribution width (RBC) [Ratio]13.2 %Jubhbf90.5-15.0The [facility] HospitalComment on above:Order Comment: No: Do not add to previous draw Performed By: #### [id number] #### [facility] [address] [place] [address], USAHematocrit (Bld) [Volume fraction]38.1 %Klmziv99.0-45.0The [facility] HospitalComment on above:Order Comment: No: Do not add to previous drawPerformed By: #### [id number] #### [facility] [address] [place] [address], USAHemoglobin (Bld) [Mass/Vol]12.3 g/tXRptbic57.0-15.0The [facility] HospitalComment on above:Order Comment: No: Do not add to previous drawPerformed By: #### [id number] #### [facility] [address] [place] [address], [facility] CENTERMCH (RBC) [Entitic mass]30.4 jxHotsnw77.0-33.0The [facility] HospitalComment on above:Order Comment: No: Do not add to previous drawPerformed By: #### [id number] #### [facility] [address] [place] [address], [facility] CENTERMCHC (RBC) [Mass/Vol]32.3 g/mMNmpipt07.0-35.0The [facility] HospitalComment on above:Order Comment: No: Do not add to previous drawPerformed By: #### [id number] #### [facility] [address] [place] [address], USAMCV (RBC) [Entitic vol]94.3 pGWhytfp15.0-98.0The [facility] HospitalComment on above:Order Comment: No: Do not add to previous drawPerformed By: #### [id number] #### [facility] [address] [place] [address], USANucleated RBC/100 WBC (Bld) [Ratio]0 %Normal0-0The [facility] HospitalComment on above:Order Comment: No: Do not add to previous drawPerformed By: #### [id number] #### [facility] [address] [place] [address], USAPLAT [id number] 10*3/dFXuhqij686-461Qdb [facility] HospitalComment on above:Order Comment: No: Do not add to previous draw Performed By: #### [id number] #### [facility] [address] [place] [address], USARBC (Bld) [#/Vol]4.04 10*6/uLNormal3.80-5.00The [facility] HospitalComment on above:Order Comment: No: Do not add to previous drawPerformed By: #### [id number] #### [facility] [address] [place] [address], USAWBC (Bld) [#/Vol]6.94 10*3/uLNormal4.00-10.60The [facility] HospitalComment on above:Order Comment: No: Do not add to previous drawPerformed By: #### [id number] #### [facility] [address] [place] [place] [address], USAMAGNESIUM BLOODon 18-41-4406Dawugguej [Mass/Vol]2.0 mg/dL Normal1.9-2.7The [facility] HospitalComment on above:Order Comment: No: Do not add to previous drawPerformed By: #### [id number] #### [facility] [address] [place] [address], USAPERFUSION BLOOD PANELon 44-16-4225CIZH EXCESS3.0 mmol/L Normal-2.0-3.0The [facility] HospitalComment on above:Performed By: #### 60143 #### [facility] [address] [place] [address], USAGlucose [Mass/Vol]110 mg/pEVqhj34-347Aza [facility] HospitalComment on above:Performed By: #### [id number] #### [facility] [address] [place] [address], USAHematocrit (Bld) [Volume fraction]34 %Dxj03-91Vtr [facility] HospitalComment on above:Performed By: #### 82870 #### [facility] [address] [place] [address], USAHemoglobin (Bld) [Mass/Vol]11.6 g/dLLow12.0-17.0The [facility] HospitalComment on above:Performed By: #### [id number] #### [facility] [address] [place] [address], USAIONIZED CALCIUM1.13 mmol/LNormal1.12-1.32The [facility] HospitalComment on above:Performed By: #### [id number] #### [facility] [address] [place] [address], USAOxygen (Bld) [Partial pressure]84.0 mm[Hg]Mxxeff30.0-105.0 The [facility] HospitalComment on above:Performed By: #### 94628 #### [facility] [address] [place] [address], LBISCR150.2 hnIjNxsjdk28.0-45.0The [facility] HospitalComment on above:Performed By: #### [id number] #### [facility] [address] [place] [address], USApH (Bld)7.47 [pH]High7.35-7.45The [facility] HospitalComment on above:Performed By: #### 61545 #### [facility] [address] [place] [address], USAPotassium [Moles/Vol]3.3 mmol/LLow3.5-4.9The [facility] HospitalComment on above:Performed By: #### [id number] #### [facility] [address] [place] [address], USASodium [Moles/Vol]139 mmol/PJsmrth478-819Brh [facility] HospitalComment on above:Performed By: #### 40346 #### [facility] [address] [place] [address], USAPOC GLUCOSE LABon [id number] [Mass/Vol]132 mg/dLHigh 70-100The [facility] HospitalComment on above:Performed By: #### [id number] #### [facility] [address] [place] [address], USAGlucose [Mass/Vol]95 mg/kGQzpunt43-287Zdh [facility] HospitalComment on above:Performed By: #### 33859 #### [facility] [address] [place] [address], USAGlucose [Mass/Vol]124 mg/fOSnsm01-652Rqi [facility] HospitalComment on above:Performed By: #### 26410 #### [facility] [address] [place] [address], USAGlucose [Mass/Vol]132 mg/fMMoqz51-547Xqf [facility] HospitalComment on above:Performed By: #### 12008 #### [facility] [address] [place] [address], USAGlucose [Mass/Vol]132 mg/ySWowt94-966Dyn [facility] HospitalComment on above:Performed By: #### [id number] #### [facility] [address] [place] [address], USAAPTTon 21-30-3203jGRV Coag (Bld) [Time]27.2 sNormal 25.0-35.0The [facility] HospitalComment on above:Result Comment: ALL RESULTS MUST BE INTERPRETED WITH RESPECT TO BLOOD DRAWING ARTIFACT OR DILUTION ERROR OF ANTICOAGULANT AT THE TIME OF SAMPLING. THE APTT SHOULD NOT BE USED TO MONITOR UNFRACTIONATED HEPARIN THERAPY, THIS LABORATORY NO LONGER HAS AN ESTABLISHED THERAPEUTIC RANGE BASED ON THE APTT. IT IS RECOMMENDED THAT THE [facility] - HEPARIN ASSAY (ANTI-XA ACTIVITY) BE USED FOR THIS PURPOSE.Performed By: #### [id number] #### [facility] [address] [place] [address], USABASIC METABOLIC PANELon 15-78-7860Diptdgt [Mass/Vol]9.6 mg/dLNormal8.6-10.3The [facility] HospitalComment on above: Performed By: #### [id number] #### [facility] [address] [place] [address], USAChloride [Moles/Vol]97 mmol/BIut09-181Sun [facility] HospitalComment on above:Performed By: #### 10856 #### [facility] [address] [facility] [place] [address], USACO2 [Moles/Vol]31 mmol/LArtyol93-37Icc [facility] HospitalComment on above:Performed By: #### 59485 #### [facility] [address] [place] [address], USACreatinine [Mass/Vol]1.05 mg/dLNormal0.60-1.20The [facility] HospitalComment on above:Performed By: #### 95641 #### [facility] [address] [place] [address], USAGFR/1.73 sq M predicted among blacks MDRD (S/P/Bld) [Vol rate/Area]mL/min/{1.73_m2}Normal>60The [facility] Comment on above:Result Comment: Calculation may not be valid for patients over 70 yearsPerformed By: #### [id number] #### [facility] [address] [place] [address], USAGFR/1.73 sq M predicted among non-blacks MDRD (S/P/Bld) [Vol rate/Area]51 ml/min/1.73sq mAbnormal>60The [facility] HospitalComment on above:Result Comment: Calculation may not be valid for patients over 70 yearsPerformed By: #### 75315 #### [facility] [address] [place] [address], USAGlucose [Mass/Vol]113 mg/sNThse23-959Hjj [facility] HospitalComment on above:Performed By: #### 41288 #### [facility] [address] [place] [address], USAPotassium [Moles/Vol]4.8 mmol/LNormal3.5-5.1The [facility] HospitalComment on above:Performed By: #### 59559 #### [facility] [address] [place] [address], USASodium [Moles/Vol]138 mmol/YFzqdbk406-058Ulv [facility] HospitalComment on above:Performed By: #### 25530 #### [facility] [address] [place] [address], USAUrea nitrogen [Mass/Vol]20 mg/dLNormal7-25The [facility] HospitalComment on above:Performed By: #### 37564 #### [facility] [address] [place] [address], USACBC COMPLETE BLOOD COUNTon 95-49-5588Elnnsdbomuf distribution width (RBC) [Ratio]13.2 %Okuxan42.5-15.0The [facility] HospitalComment on above:Performed By: #### 24839 #### [facility] [address] [place] [address], USAHematocrit (Bld) [Volume fraction]42.4 %Btsvlw77.0-45.0The [facility] HospitalComment on above:Performed By: #### 22845 #### [facility] [address] [place] [address], USAHemoglobin (Bld) [Mass/Vol]13.9 g/jXSedaly83.0-15.0The [facility] HospitalComment on above:Performed By: #### 97156 #### [facility] [address] [place] [address], [facility] CENTERMCH (RBC) [Entitic mass]30.7 cbUdiufv89.0-33.0The [facility] HospitalComment on above:Performed By: #### 37097 #### [facility] [address] [place] [address], [facility] CENTERMCHC (RBC) [Mass/Vol]32.8 g/cABwtgaa95.0-35.0The [facility] HospitalComment on above:Performed By: #### 26014 #### [facility] [address] [place] [address], USAMCV (RBC) [Entitic vol]93.6 hQVmlywx65.0-98.0The [facility] HospitalComment on above:Performed By: #### 77235 #### [facility] [address] [facility] [place] [address], USANucleated RBC/100 WBC (Bld) [Ratio]0 %Normal0-0The [facility] HospitalComment on above:Performed By: #### 46185 #### [facility] [address] [place] [address], USAPLAT [id number] 10*3/kTIimssr937-370Mnr [facility] HospitalComment on above:Performed By: #### 09288 #### [facility] [address] [place] [address], [facility] CENTERRBC (Bld) [#/Vol]4.53 10*6/uLNormal3.80-5.00The [facility] HospitalComment on above:Performed By: #### 00391 #### [facility] [address] [place] [address], [facility] MED[facility] CENTERWBC (Bld) [#/Vol]8.84 10*3/uLNormal4.00-10.60The [facility] HospitalComment on above:Performed By: #### 82606 #### [facility] [address] [place] [address], [facility] CENTERPOC GLUCOSE LABon 08-80-4342Csrnjyc [Mass/Vol]155 mg/dLHigh 70-100The [facility] HospitalComment on above:Performed By: #### 47711 #### [facility] [address] [place] [address], USAGlucose [Mass/Vol]105 mg/nJCxbz28-468Ujx [facility] HospitalComment on above:Performed By: #### 51889 #### [facility] [address] [place] [address], USAGlucose [Mass/Vol]114 mg/pCHtwj32-841Dkq [facility] HospitalComment on above:Performed By: #### 67773 #### [facility] [address] [place] [address], USAPROTHROMBIN TIMEon [id number] Coag (PPP) [Relative time] 0.99 {INR}Normal0.91-1.16The [facility]ubl[facility] Medical CenterComment on above:Result Comment: ACC RECOMMENDED INR FOR WARFARIN THERAPY ------- CONDITION INR PROPHYLAXIS OF VENOUS THROMBOSIS 2-3 (HIGH-RISK SURGERY) TREATMENT OF VENOUS THROMBOSIS 2-3 TREATMENT OF PULMONARY EMBOLISM 2-3 PREVENTION OF SYSTEMIC EMBOLISM: 2-3 ACUTE MYOCARDIAL INFARCTION TISSUE HEART VALVES VALVULAR HEART DISEASE ATRIAL FIBRILLATION RECURRENT SYSTEMIC EMBOLISM MECHANICAL HEART VALVE 2.5-3.5 FROM: ORAL ANTICOAGULANTS. MECHANISM OF ACTION, CLINICAL EFFECTIVENESS, AND OPTIMAL THERAPEUTIC RANGE. CHEST 1995;108:231S-246S.Performed By: #### 64835 #### [facility] [address] [place] [id number], USAPT Coag (PPP) [Time]13.1 sHhgoxo72.3-14.8The [facility] HospitalComment on above:Result Comment: ALL RESULTS MUST BE INTERPRETED WITH RESPECT TO BLOOD DRAWING ARTIFACT OR DILUTION ERROR OF ANTICOAGULANT AT THE TIME OF SAMPLING.Performed By: #### [id number] #### [facility] [address] [place] [address], USATYPE AND SCREENon [id number] INTERPRETATIONANoDelaware County HospitalComment on above:Performed By: #### 98951 #### [facility] [address] [place] [address], USARH INTERPRETATIONPositiveNoDelaware County HospitalComment on above:Performed By: #### 47792 #### [facility] [address] [place] [address], USACTA ABDOMEN AND PELVISon [id number] ABDOMEN AND PELVIS [facility] Department of Radiology [address] [place] [address] Patient Name: KRISSY OWENS : 1945 Sex: F Age: Race: White Pt. Location: [facility] Patient Status: D Ordered Date: 06/02/2018 3:45:00 PM Completed Date: 06/09/2018 09:02 AM Requesting Provider: PAUL LAST Attending Provider: PAUL LAST Report Copy To: AMIE AG Signs & Symptoms: Abdominal aortic aneurysm, ruptured History: Order scanned into [facility] / medicare *er Comments: Abdominal aortic aneurysm, ruptured Exam: CTA ABDOMEN AND PELVIS CTA ABDOMEN AND PELVIS 06/09/2018 9:02 AM EDT SIGNS AND SYMPTOMS: Abdominal aortic aneurysm, ruptured TECHNOLOGIST COMMENTS: f/u to endo repair pt has no symptoms QUESTION FOR THE RADIOLOGIST: Abdominal aortic aneurysm, ruptured PROTOCOL: Axial CT angiography images were obtained with IV contrast. CONTRAST: Contrast: OMNIPAQUE 350 (LOCM), 100 milliliter, Intravenous TECHNIQUE: Multidetector CT angiography axial slices of the abdomen and pelvis were obtained with IV contrast. Multiplanar reformats, MIP, and volume rendered 3-D images were generated on a separate workstation and reviewed to further define anatomy and possible pathology. Appropriate CT dose lowering techniques were utilized. COMPARISON: 07/10/2017 FINDINGS: Lower Chest: Within normal limits. ABDOMEN: Liver: Within normal limits. Bile Ducts: Normal caliber. Gallbladder: No calcified gallstones. Normal caliber wall. Pancreas: Within normal limits. Spleen: Within normal limits. Adrenals: Within normal limits. Kidneys: Within normal limits. Pelvis: Reproductive Organs: No pelvic masses. Ureters: Within normal limits. Bladder: Underdistended. Bowel: Normal caliber. Mesenteric Lymph Nodes: No enlarged mesenteric lymph nodes. Peritoneum: No ascites or free air, no fluid collection. Retroperitoneum: Within normal limits. Abdominal Wall: Within normal limits. Bones: Degenerative changes both hips and lumbar spine. No acute osseous abnormality. Vessels: The celiac axis and SMA are patent. Endovascular stent in the infrarenal abdominal aorta is unchanged in position and patent. The renal arteries are opacified extending from the upper portion of the stent. Endoleak in the infrarenal abdominal aortic stent persists. The aneurysm measures 7.5 x 7.5 cm on series 10 image 264. This previously measured 6.5 x 6.7 cm. A very small endograft leak may actually be noted on series 10 image 298 adjacent to the IVC where there is a very small blush present which was not on the precontrast images. Continued occlusion of the left common iliac portion of the stent. There is some opacification distally from fem-fem bypass. IMPRESSION: * Aneurysm has increased in size from 6. 7 to 7.5 cm. Even though an endograft leak is not well-visualized must be persistent. * A very small endograft leak may actually be noted on series 10 image 298 adjacent to the IVC where there is a very small blush present which was not on the precontrast images. * Continued occlusion of the left common iliac with is distal opacification from fem-fem bypass. Approved by:Jacki Herbert on 06/09/2018 9:29 AM EDT. I, Naila Wells, have reviewed the images and report and concur with these findings. Electronically signed by:Naila Wells. Transcribed by: [id number], User Resident: JACKI HERBERT Electronically Signed by: NAILA WELLS @ 06/10/2018 09:52 AM I personally read this/these film(s) with this residentSumma Health Akron CampusComment on above:Order Comment: Abdominal aortic aneurysm, rupturedBASIC METABOLIC PANELon 79-84-1949Fpwgutn [Mass/Vol]9.3 mg/dLNormal 8.6-10.3The [facility] HospitalComment on above:Order Comment: No: Do not add to previous drawPerformed By: #### [id number] #### [facility] [address] [place] [address], USAChloride [Moles/Vol]96 mmol/UUav63-959Cbs [facility] HospitalComment on above:Order Comment: No: Do not add to previous drawPerformed By: #### 27413 #### [facility] [address] [place] [address], USACO2 [Moles/Vol]32 mmol/ULldi79-91Kcl [facility] HospitalComment on above:Order Comment: No: Do not add to previous draw Performed By: #### 82622 #### [facility] [address] [place] [address], USACreatinine [Mass/Vol]0.81 mg/dLNormal0.60-1.20The [facility] HospitalComment on above:Order Comment: No: Do not add to previous drawPerformed By: #### 81858 #### [facility] [address] [place] [address], USAGFR/1.73 sq M predicted among blacks MDRD (S/P/Bld) [Vol rate/Area]mL/min/{1.73_m2}Normal>60The [facility] Comment on above:Order Comment: No: Do not add to previous drawResult Comment: Calculation may not be valid for patients over 70 yearsPerformed By: #### [id number] #### [facility] [address] [place] [address], USAGFR/1.73 sq M predicted among non-blacks MDRD (S/P/Bld) [Vol rate/Area]mL/min/{1.73_m2}Normal>60The [facility] Comment on above:Order Comment: No: Do not add to previous drawResult Comment: Calculation may not be valid for patients over 70 yearsPerformed By: #### 46118 #### [facility] [address] [place] [address], USAGlucose [Mass/Vol]155 mg/iFNjea12-158Mat [facility] HospitalComment on above:Order Comment: No: Do not add to previous drawPerformed By: #### 99158 #### [facility] [address] [place] [address], USAPotassium [Moles/Vol]3.4 mmol/LLow3.5-5.1The [facility] HospitalComment on above:Order Comment: No: Do not add to previous drawPerformed By: #### 54111 #### [facility] [address] [place] [address], USASodium [Moles/Vol]136 mmol/VUmgxrv919-794Lnf [facility] HospitalComment on above:Order Comment: No: Do not add to previous drawPerformed By: #### 83349 #### [facility] [address] [place] [address], USAUrea nitrogen [Mass/Vol]16 mg/dLNormal7-25The [facility] HospitalComment on above:Order Comment: No: Do not add to previous drawPerformed By: #### [id number] #### [facility] [address] [place] [address], USACBC COMPLETE BLOOD COUNTon 89-43-2430Clzbghmzxaq distribution width (RBC) [Ratio]12.9 %Cpkpvq98.5-15.0The [facility] HospitalComment on above:Order Comment: No: Do not add to previous draw Performed By: #### 38944 #### [facility] [address] [place] [address], USAHematocrit (Bld) [Volume fraction]37.0 %Mhzvew83.0-45.0The [facility] HospitalComment on above:Order Comment: No: Do not add to previous drawPerformed By: #### 87626 #### [facility] [address] [place] [address], [facility] CENTERHemoglobin (Bld) [Mass/Vol]12.3 g/uMFtdshi77.0-15.0The [facility] HospitalComment on above:Order Comment: No: Do not add to previous drawPerformed By: #### 84153 #### [facility] [address] [place] [address], [facility], OKLAHOMAH (RBC) [Entitic mass]30.4 eeRsfohd62.0-33.0The [facility] HospitalComment on above:Order Comment: No: Do not add to previous drawPerformed By: #### [id number] #### [facility] [address] [place] [address], [facility] CENTERMCHC (RBC) [Mass/Vol]33.2 g/wKKkmrxl71.0-35.0The [facility] HospitalComment on above:Order Comment: No: Do not add to previous drawPerformed By: #### 26186 #### [facility] [address] [place] [address], [facility], OKLAHOMAV (RBC) [Entitic vol]91.6 fVBjhdyj37.0-98.0The [facility] HospitalComment on above:Order Comment: No: Do not add to previous drawPerformed By: #### [id number] #### [facility] [address] [facility] [place] [address], USANucleated RBC/100 WBC (Bld) [Ratio]0 %Normal0-0The [facility] HospitalComment on above:Order Comment: No: Do not add to previous drawPerformed By: #### 05615 #### [facility] [address] [place] [address], USAPLAT [id number] 10*3/xYZuyrhr720-413Ztm [facility] HospitalComment on above:Order Comment: No: Do not add to previous draw Performed By: #### 52995 #### [facility] [address] [place] [address], USARBC (Bld) [#/Vol]4.04 10*6/uLNormal3.80-5.00The [facility] HospitalComment on above:Order Comment: No: Do not add to previous drawPerformed By: #### 21434 #### [facility] [address] [place] [address], USAWBC (Bld) [#/Vol]9.71 10*3/uLNormal4.00-10.60The [facility] HospitalComment on above:Order Comment: No: Do not add to previous drawPerformed By: #### 46731 #### [facility] [address] [place] [address], USAMAGNESIUM BLOODon 43-38-9545Zyqimgszb [Mass/Vol]2.0 mg/dL Normal1.9-2.7The [facility] HospitalComment on above:Order Comment: No: Do not add to previous drawPerformed By: #### 86266 #### [facility] [address] [place] [address], USAPHOSPHORUS BLOODon 84-93-5680Asmqicdva [Mass/Vol]3.7 mg/dL Normal2.5-5.0The [facility] HospitalComment on above:Order Comment: No: Do not add to previous drawPerformed By: #### 94634 #### [facility] [address] [place] [address], USAPOTASSIUM URon 78-42-3620Osudjxokj [Moles/Vol]28.0 mmol/L NormalThe [facility] HospitalComment on above:Order Comment: No: Do not add to previous drawNo collection time noted on specimen or requisition. The collection timerecorded is the time of receipt in the lab.Result Comment: There are no established reference values for random urine specimensPerformed By: #### [id number] #### [facility] [address] [place] [address], USABASIC METABOLIC PANELon 09-83-7147Yaeuhdl [Mass/Vol]9.0 mg/dLNormal8.6-10.3The [facility] HospitalComment on above:Order Comment: No: Do not add to previous drawPerformed By: #### [id number] #### [facility] [address] [place] [address], USAChloride [Moles/Vol]95 mmol/NYti50-853Cvu [facility] HospitalComment on above:Order Comment: No: Do not add to previous drawPerformed By: #### [id number] #### [facility] [address] [place] [address], [place]ACO2 [Moles/Vol]34 mmol/DCvhr05-86Eji [facility] HospitalComment on above:Order Comment: No: Do not add to previous draw Performed By: #### [id number] #### [facility] [address] [place] [address], USACreatinine [Mass/Vol]0.82 mg/dLNormal0.60-1.20The [facility]len[facility] HospitalComment on above:Order Comment: No: Do not add to previous drawPerformed By: #### [id number] #### [facility] [address] [place] [address], USAGFR/1.73 sq M predicted among blacks MDRD (S/P/Bld) [Vol rate/Area]mL/min/{1.73_m2}Normal>60The [facility] Comment on above:Order Comment: No: Do not add to previous drawResult Comment: Calculation may not be valid for patients over 70 yearsPerformed By: #### [id number] #### [facility] [address] [place] [address], USAGFR/1.73 sq M predicted among non-blacks MDRD (S/P/Bld) [Vol rate/Area]mL/min/{1.73_m2}Normal>60The [facility] Comment on above:Order Comment: No: Do not add to previous drawResult Comment: Calculation may not be valid for patients over 70 yearsPerformed By: #### [id number] #### [facility] [address] [place] [address], USAGlucose [Mass/Vol]129 mg/gAWuoc79-017Ery [facility] HospitalComment on above:Order Comment: No: Do not add to previous drawPerformed By: #### [id number] #### [facility] [address] [place] [address], USAPotassium [Moles/Vol]3.2 mmol/LLow3.5-5.1The [facility] HospitalComment on above:Order Comment: No: Do not add to previous drawPerformed By: #### [id number] #### [facility] [address] [place] [address], USASodium [Moles/Vol]135 mmol/PVls296-110Frt [facility] HospitalComment on above:Order Comment: No: Do not add to previous drawPerformed By: #### [id number] #### [facility] [address] [place] [address], USAUrea nitrogen [Mass/Vol]15 mg/dLNormal7-25The [facility] HospitalComment on above:Order Comment: No: Do not add to previous drawPerformed By: #### [id number] #### [facility] [address] [place] [address], USACBC COMPLETE BLOOD COUNTon 61-88-4176Bdghrytejkb distribution width (RBC) [Ratio]13.2 %Huymwi67.5-15.0The [facility] HospitalComment on above:Order Comment: No: Do not add to previous draw Performed By: #### [id number] #### [facility] [address] [place] [address], USAHematocrit (Bld) [Volume fraction]36.2 %Fstmcy79.0-45.0The [facility] HospitalComment on above:Order Comment: No: Do not add to previous drawPerformed By: #### [id number] #### [facility] [address] [place] [address], [facility] CENTERHemoglobin (Bld) [Mass/Vol]11.7 g/dLLow12.0-15.0The [facility] HospitalComment on above:Order Comment: No: Do not add to previous drawPerformed By: #### [id number] #### [facility] [address] [place] [address], [facility], OKLAHOMAH (RBC) [Entitic mass]30.0 lkThtcyp29.0-33.0The [facility] HospitalComment on above:Order Comment: No: Do not add to previous drawPerformed By: #### [id number] #### [facility] [address] [place] [address], [facility] CENTERMCHC (RBC) [Mass/Vol]32.3 g/vWJaoepi99.0-35.0The [facility] HospitalComment on above:Order Comment: No: Do not add to previous drawPerformed By: #### [id number] #### [facility] [address] [place] [address], [facility] CENTERMCV (RBC) [Entitic vol]92.8 zGJsqtpa35.0-98.0The [facility] HospitalComment on above:Order Comment: No: Do not add to previous drawPerformed By: #### 00539 #### [facility] [address] [place] [address], USANucleated RBC/100 WBC (Bld) [Ratio]0 %Normal0-0The [facility] HospitalComment on above:Order Comment: No: Do not add to previous drawPerformed By: #### [id number] #### [facility] [address] [place] [address], USAPLAT [id number] 10*3/kMKdrfsn784-009Pmr [facility] HospitalComment on above:Order Comment: No: Do not add to previous draw Performed By: #### 86669 #### [facility] [address] [place] [address], USARBC (Bld) [#/Vol]3.90 10*6/uLNormal3.80-5.00The [facility] HospitalComment on above:Order Comment: No: Do not add to previous drawPerformed By: #### [id number] #### [facility] [address] [facility] [place] [address], USAWBC (Bld) [#/Vol]9.06 10*3/uLNormal4.00-10.60The [facility] HospitalComment on above:Order Comment: No: Do not add to previous drawPerformed By: #### [id number] #### [address] [place] [address], [facility] CENTERCHEST AND LATERALon [id number] AND [facility] Department of Radiology [address] [place] [id number] Patient Name: KRISSY OWENS : 1945 Sex: F Age: Race: White Pt. Location: [id number] Patient Status: I Ordered Date: 11/15/2017 5:55:00 PM Completed Date: 11/16/2017 08:05 AM Requesting Provider: SILVANA KNAPP Attending Provider: PAUL LAST Report Copy To: Signs & Symptoms: Shortness of Breath History: Patient history not available Comments: R/O Aspiration Exam: CHEST AND LATERAL CHEST AND LATERAL 11/16/2017 8:05 AM EDT SIGNS AND SYMPTOMS: Shortness of Breath TECHNOLOGIST COMMENTS: Shortness of breath QUESTION FOR THE RADIOLOGIST: R/O Aspiration PROTOCOL: AP(PA) and Lateral views were obtained. COMPARISON: August 26, 2015 FINDINGS: ET no longer present Heart and mediastinum similar with slightly tortuous aorta and similar slight widening of the mediastinum. Heart size given technique is not enlarged. Lung aeration is improved with no infiltrates and no congestive change IMPRESSION: No pneumonia, possibly some focal underaeration at the left base Electronically signed by:Karolina Chauhan. Transcribed by: [id number], User Resident: Electronically Signed by: KAROLINA CHAUHAN @ 11/16/2017 09:58 AMNormalThe [facility] HospitalComment on above:Order Comment: R/O AspirationMAGNESIUM BLOODon [id number] [Mass/Vol]1.9 mg/dLNormal1.9-2.7The [facility] HospitalComment on above:Order Comment: No: Do not add to previous drawPerformed By: #### [id number] #### [facility] [address] [place] [address], [facility] CENTERPHOSPHORUS BLOODon 08-47-1349Wfgonpaeg [Mass/Vol]2.6 mg/dL Normal2.5-5.0The [facility] HospitalComment on above:Order Comment: No: Do not add to previous drawPerformed By: #### [id number] #### [facility] [address] [place] [address], USAARTERIAL BLOOD GAS W/COOXon 74-89-0870ZAJV EXCESS9 mmol/L High-2-2The [facility] HospitalComment on above:Performed By: #### [id number] #### [facility] [address] [place] [address], USACOHB2 %High0-1The [facility] Comment on above:Performed By: #### 89098 #### [facility] [address] [place] [address], [facility] CENTERHCO3 (Bld) [Moles/Vol]35 mmol/LCritically ojzd81-57Gqj [facility] HospitalComment on above:Performed By: #### 96765 #### [facility] [address] [place] [address], USALPM2.0 LPMNormal0.5-20.0The [facility] HospitalComment on above:Performed By: #### 62028 #### [facility] [address] [facility] [place] [address], USAMETHB0.7 %Normal0.0-1.5The [facility] HospitalComment on above:Performed By: #### [id number] #### [facility] [address] [place] [address], USAMODALITYNCNormalThe [facility] Comment on above:Performed By: #### 83599 #### [facility] [address] [place] [address], USAOxygen (Bld) [Partial pressure]59 mm[Hg]Hgl53-329Ndf [facility] HospitalComment on above:Performed By: #### 12971 #### [facility] [address] [facility] [place] [address], USAOxygen saturation in Blood90.8 %Low94.0-97.0The [facility] HospitalComment on above:Performed By: #### 51669 #### [facility] [address] [facility] [place] [address], HOBTAD485 pgCnFzsc87-87Hzp [facility] Comment on above:Performed By: #### 82345 #### [facility] [address] [facility] [place] [address], USApH (Bld)7.43 [pH]Normal7.35-7.45The [facility] HospitalComment on above:Performed By: #### 00086 #### [facility] [address] [place] [address], BTGQKU09.2 g/wXQzmbxi26.0-15.0The [facility] HospitalComment on above:Performed By: #### [id number] #### [facility] [address] [place] [address], [facility] CENTEROperative Reporton [id number] ReportMR#: [id number] [facility] Pt. Name: Krissy Owens Room #: 3CD [id number] Discharge Date: Birthdate: 1945 OPERATIVE REPORT DATE OF SURGERY: 11/13/2017 SURGEON: Paul Last M.D. 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 OPERATION PERFORMED: Robotic DaVinci laparoscopic-assisted inferior mesenteric artery takedown or ligation. BRIEF CLINICAL SUMMARY: This is a 72-year-old patient, who is obese, nondiabetic. The patient presented with a ruptured abdominal aortic aneurysm on 08/26/2015. The patient underwent Medtronic aortomonoiliac stent graft with a tdxp-ag-ofstv crossover femoral-femoral graft. The patient did very well postoperatively. The patient was monitored clinically, and by CT scanning, the patient showed an endoleak type 2, which was inferior mesenteric artery on lumbar connection. The patient showed evidence over the period of the postoperative followup that the endoaneurysm sac had been increasing in size. We have done 3 dimensional reconstruction and there is definitely inferior mesenteric artery lighten up back flow into the sac. There appears to be a connection of the inferior mesenteric artery collateral flow with a right lumbar and the right lumbar branch appears to be communicated with a right branch of the right internal iliac artery. Since the patient's measurements of the aneurysm sac was increasing in size, we discussed the nature of the endoleak type 2 persistency and the size increase nearly 5.96 cm. We felt that DaVinci laparoscopic approach towards the inferior mesenteric artery takedown would be the best option at this time. Condition was all worked out with a three-dimensional reconstruction showed to the patient and the patient was prepared for surgery. Initially, she was scheduled for November 12. There was an emergency surgery postponing her surgery for 24 hours. Discussed with anesthesia department. The patient was transferred to room 13. TECHNIQUE: The patient underwent general anesthesia with endotracheal intubation in supine position. After all the lines monitoring, we proceeded with ureteral stenting by Dr. Alcides Bennett and he had performed the bilateral ureteral stenting for the possibility of using fluorescein ICG in case that we need to laid up the ureters during the procedure. Once the patient was off the lithotomy position, we transferred the patient to a full right lateral position with the left side up. We used a sandbag for positioning of the patient and I personally did with members of the surgical team. We took precautionary measures, particularly in the left forearm positioning and we prepared the abdomen with Betadine. Sterile drapes were applied. Betadine impregnated Vi-Drape was used. We initiated the surgery by placing the CO2 port in the paraumbilical area. We used the midline supraumbilical Earlene technique was used and we visualized the peritoneum transversalis fascia. We used fascial sutures 2-0 Tycron to be placed interruptedly. These sutures were going to be tied up at the end of the procedure and then we used a pursestring of 0 Tycron with a red rubber catheter. Once we got the #8 trocar into the abdomen, CO2 was deployed and very successfully and then we basically placed the left arm port supraumbilical at about 6.5 cm from the umbilical port and the right arm of the robotic port was about 6.5 cm infraumbilically. We tried to be looking at the aneurysm from the right side of the patient. We also put an surgery assistant port in the left lower quadrant. This surgery assistant port was transferred from 8 mm later on to 12 mm size. We then had an engagement of the robotic system in such a way that we were approaching the aneurysm from the right side of the patient. We had no problems to detect the aneurysm sac, because of the size, but we had a relatively moderately dilated bowel that was molesting the surgeon in different ways, but we exerted a Trendelenburg position and we were successful into controlling the surgical field. The surgeon went to the console and we proceeded to dissect with the right arm Mr. Lucia and on the left Cadiere instrumentation. The posterior peritoneum of the aneurysm was opened and dissection took place very nicely over the upper portion of the aneurysm towards the neck. We dissected with electrocautery and we found the inferior mesenteric artery approximately after 10 to 15 minutes of dissection. The inferior mesenteric artery was found to be medium size, not large the artery was. Basically during the dissection, we noticed some bleeding and the artery was basically ligated towards the mesenteric side with 2-0 Tycron double ligature and a stapling device. On the aneurysm sac endpoint, we ligated with gkqmly-sp-mkgqc suture with 2-0 Tycron and actually we did a double ligation in the sac end point. It is important to notice that the inferior mesenteric artery was a medium size. However, the blood pressure, back pressure flowing was not that great and this is kind of important into the subsequent followup of the patient. Looking at the 3D from this approach was going to be very difficult to get to the lumbars, particularly from the left side. An attempt was made to go from the right side of the aneurysm in between the aortic aneurysm and the vena cava, and at this point, we found that the bowel was very aggressively molesting the surgeon's pathway and we had some CO2 endoleak that did not permit a very good seal. At this point, we felt that we already have accomplished the target of ligating the inferior mesenteric artery. We are going to follow the patient subsequently. All the ports were removed. The CO2 obviously was deleted. We did close the fascia layer of the periumbilical port, actually the 3 sutures and the 2 pursestrings that we put on with 2-0 and 0 Tycron. The left lower quadrant surgery assistant port was also treated with 2-0 Tycron double ligature. All the ports were then treated with 3-0 chromic and subcuticular closure, Steri-Strips and a small dressing. Electronically Signed by: Paul Last M.D. 11/18/2017 02:02 P Paul Last M.D. Date Dict: 11/14/2017/03:47 P/Paul Last M.D. Date Trans: 11/15/2017 01:28 Nayely/kristi DN_JN:[id number] cc: Amie Ag M.D. [facility]3 [facility] [address]PnrzgyUvaMercy Health Urbana Hospital 11-14-2017 aPTT Coag (Bld) [Time]27.2 sIqwjqc57.0-35.0The [facility] HospitalComment on above:Order Comment: UnknownResult Comment: ALL RESULTS MUST BE INTERPRETED WITH RESPECT TO BLOOD DRAWING ARTIFACT OR DILUTION ERROR OF ANTICOAGULANT AT THE TIME OF SAMPLING. THE APTT SHOULD NOT BE USED TO MONITOR UNFRACTIONATED HEPARIN THERAPY, THIS LABORATORY NO LONGER HAS AN ESTABLISHED THERAPEUTIC RANGE BASED ON THE APTT. IT IS RECOMMENDED THAT THE [facility]FH - HEPARIN ASSAY (ANTI-XA ACTIVITY) BE USED FOR THIS PURPOSE.Performed By: #### [id number] #### [facility] [address] [place] [address], USABASIC METABOLIC PANELon [id number] [Mass/Vol]8.1 mg/dLLow8.6-10.3The [facility] HospitalComment on above:Order Comment: UnknownPerformed By: #### [id number] #### [facility] [address] [place] [address], USAChloride [Moles/Vol]101 mmol/YNtqmse70-923Vjp [facility] HospitalComment on above:Order Comment: UnknownPerformed By: #### [id number] #### [facility] [address] [place] [address], USACO2 [Moles/Vol]28 mmol/KWzyskm53-91Jhb [facility] HospitalComment on above:Order Comment: UnknownPerformed By: #### 47063 #### [facility] [address] [place] [address], USACreatinine [Mass/Vol]0.89 mg/dLNormal0.60-1.20The [facility] HospitalComment on above:Order Comment: Unknown Performed By: #### 25904 #### [facility] [address] [place] [address], USAGFR/1.73 sq M predicted among blacks MDRD (S/P/Bld) [Vol rate/Area]mL/min/{1.73_m2}Normal>60The [facility] Comment on above:Order Comment: UnknownResult Comment: Calculation may not be valid for patients over 70 yearsPerformed By: #### 49220 #### [facility] [address] [place] [address], USAGFR/1.73 sq M predicted among non-blacks MDRD (S/P/Bld) [Vol rate/Area]mL/min/{1.73_m2}Normal>60The [facility] Comment on above:Order Comment: UnknownResult Comment: Calculation may not be valid for patients over 70 yearsPerformed By: #### [id number] #### [facility] [address] [place] [address], USAGlucose [Mass/Vol]140 mg/tAAlxb60-682Hgg [facility] HospitalComment on above:Order Comment: UnknownPerformed By: #### [id number] #### [facility] [address] [place] [address], USAPotassium [Moles/Vol]4.0 mmol/LNormal3.5-5.1The [facility] HospitalComment on above:Order Comment: UnknownPerformed By: #### 64214 #### [facility] [address] [place] [address], USASodium [Moles/Vol]137 mmol/ISkkdrx184-009Vwb [facility] HospitalComment on above:Order Comment: UnknownPerformed By: #### [id number] #### [facility] [address] [facility] [place] [address], USAUrea nitrogen [Mass/Vol]13 mg/dLNormal7-25The [facility] HospitalComment on above:Order Comment: UnknownPerformed By: #### [id number] #### [facility] [address] [place] [address], USACBC COMPLETE BLOOD COUNTon 45-73-1442Hddaxtzpeox distribution width (RBC) [Ratio]13.3 %Ijpglu67.5-15.0The [facility] HospitalComment on above:Order Comment: UnknownPerformed By: #### [id number] #### [facility] [address] [place] [address], USAHematocrit (Bld) [Volume fraction]37.1 %Ajrjoo49.0-45.0The [facility] HospitalComment on above:Order Comment: Unknown Performed By: #### [id number] #### [facility] [address] [place] [address], USAHemoglobin (Bld) [Mass/Vol]12.0 g/lUQmjlnx78.0-15.0The [facility] HospitalComment on above:Order Comment: Unknown Performed By: #### 45941 #### [facility] [address] [place] [address], [facility] CENTERMCH (RBC) [Entitic mass]30.2 pkFmjmjm55.0-33.0The [facility] HospitalComment on above:Order Comment: Unknown Performed By: #### [id number] #### [facility] [address] [place] [address], USAMCHC (RBC) [Mass/Vol]32.3 g/kHLalltm20.0-35.0The [facility] HospitalComment on above:Order Comment: UnknownPerformed By: #### 81531 #### [facility] [address] [place] [address], USAMCV (RBC) [Entitic vol]93.2 jJLrybhx92.0-98.0The [facility] HospitalComment on above:Order Comment: UnknownPerformed By: #### [id number] #### [facility] [address] [place] [address], USANucleated RBC/100 WBC (Bld) [Ratio]0 %Normal0-0The [facility] HospitalComment on above:Order Comment: Unknown Performed By: #### [id number] #### [facility] [address] [place] [address], USAPLAT OZS240 10*3/lRMwyhbt726-492Cxm [facility] HospitalComment on above:Order Comment: UnknownPerformed By: #### [id number] #### [facility] [address] [place] [address], USARBC (Bld) [#/Vol]3.98 10*6/uLNormal3.80-5.00The [facility] HospitalComment on above:Order Comment: UnknownPerformed By: #### 71512 #### [facility] [address] [place] [address], USAWBC (Bld) [#/Vol]13.76 10*3/uLHigh4.00-10.60The [facility] HospitalComment on above:Order Comment: UnknownPerformed By: #### 42657 #### [facility] [address] [place] [address], USAMAGNESIUM BLOODon 29-31-9873Jqfipztpx [Mass/Vol]1.8 mg/dL Low1.9-2.7The [facility] HospitalComment on above:Order Comment: No: Do not add to previous drawPerformed By: #### 34439 #### [facility] [address] [place] [address], USAOperative Reporton [id number] ReportMR#: [id number] [facility] Pt. Name: Krissy Owens Room #: 3CD [id number] Discharge Date: Birthdate: 1945 OPERATIVE REPORT DATE OF SURGERY: 11/13/2017 SURGEON: Alcides Bennett MD ASSISTANTS: 1. Vin Carlos M.D. 2. Artur Lama M.D. PREOPERATIVE DIAGNOSIS: Need for intraoperative visualization of ureters. POSTOPERATIVE DIAGNOSIS: Need for intraoperative visualization of ureters. PROCEDURES PERFORMED: 1. Rigid cystourethroscopy. 2. Insertion of bilateral ureteral catheters. ANESTHESIA: General endotracheal. ANTIBIOTICS: Cefazolin 2 g IV. FINDINGS: Normal bladder and orthotopic ureteral orifices. 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 The patient is being scheduled for robotic assisted laparoscopic LAKHWINDER takedown and there is need for intraoperative visualization of the ureters bilaterally. Urology was asked to place bilateral ureteral catheters to aid in this regard. Risks, benefits, and alternatives were discussed with the patient and she elected to proceed. Informed consent was obtained. PROCEDURE IN DETAIL: The patient was taken to the operating room table and placed in dorsal lithotomy position. General endotracheal anesthesia had been induced appropriately prior to this, and preoperative antibiotics were administered. EPC cuffs were placed and confirmed to be working. The patient was prepped and draped in the usual sterile fashion. A surgical time-out indicating correct patient, procedure, and positioning was performed, elected to begin by inserting a 30-degree cystoscopic lens with 22-Swedish sheath into the patient's urethra and bladder with ease. Once inside the bladder, we performed a cystoscopic visualization in stepwise manner starting with the dome and proceeding to evaluate the left lateral wall/trigone, right lateral wall and posterior wall of the bladder. There were no abnormalities or lesions found. Ureteral orifices were in the orthotopic position bilaterally. We focused our attention 1st on the left ureteral orifice, which we cannulated with a Sensor wire. We advanced the Sensor wire through the working sheath of our scope. We then advanced a Sensor wire up to the kidney and over this placed a 5-Swedish ureteral catheter up to the kidney. We then turned our attention to the right ureteral orifice and inserted a 5-Swedish ureteral catheter in a similar manner. We then removed our cystoscope and inserted a 16-Swedish Olivares catheter. We then subsequently secured both ureteral catheters to the Olivares catheter using umbilical tape. Procedure was then turned over to Dr. Last, the primary surgeon for the remainder of the procedure, which will be dictated separately. The patient tolerated the procedure well and there were no complications. Dr. Bennett was present and immediately available to assist during the entire procedure. ESTIMATED BLOOD LOSS: 0 mL. FLUIDS: Per anesthesia. IMPLANTS: Bilateral ureteral catheters and 16-Swedish Olivares catheter. SPECIMENS: None. CONDITION: Stable. COMPLICATIONS: None. PLAN: The patient will be repositioned for primary operation with vascular surgery, bilateral ureteral catheters may be removed at the conclusion of the procedure. Olivares catheter can be removed at the discretion of the primary team. We will be available to assist as needed. Electronically Signed by: Alcides Bennett MD 12/04/2017 11:01 A Alcides Bennett MD I was present for the entire procedure. Date Dict: 11/13/2017/08:34 P/Vin Carlos MD Date Trans: 11/14/2017 04:32 A/kristi DN_JN:[id number] cc: Amie Ag M.D. [facility]3 [facility] [address]MevvpcTzsSumma Health Akron CampusPHOSPHORUS BLOODon [id number] [Mass/Vol]3.5 mg/dLNormal2.5-5.0The [facility] HospitalComment on above:Order Comment: No: Do not add to previous draw Performed By: #### [id number] #### [facility] [address] [place] [address], [facility] CENTERPROTHROMBIN TIMEon [id number] Coag (PPP) [Relative time] 1.08 {INR}Normal0.91-1.16The [facility] HospitalComment on above:Order Comment: UnknownResult Comment: ACCCP RECOMMENDED INR FOR WARFARIN THERAPY ------- CONDITION INR PROPHYLAXIS OF VENOUS THROMBOSIS 2-3 (HIGH-RISK SURGERY) TREATMENT OF VENOUS THROMBOSIS 2-3 TREATMENT OF PULMONARY EMBOLISM 2-3 PREVENTION OF SYSTEMIC EMBOLISM: 2-3 ACUTE MYOCARDIAL INFARCTION TISSUE HEART VALVES VALVULAR HEART DISEASE ATRIAL FIBRILLATION RECURRENT SYSTEMIC EMBOLISM MECHANICAL HEART VALVE 2.5-3.5 FROM: ORAL ANTICOAGULANTS. MECHANISM OF ACTION, CLINICAL EFFECTIVENESS, AND OPTIMAL THERAPEUTIC RANGE. CHEST 1995;108:231S-246S.Performed By: #### [id number] #### [facility] [address] [place] [address], [facility] CENTERPT Coag (PPP) [Time]14.0 tZkohni19.3-14.8The [facility] HospitalComment on above:Order Comment: UnknownResult Comment: ALL RESULTS MUST BE INTERPRETED WITH RESPECT TO BLOOD DRAWING ARTIFACT OR DILUTION ERROR OF ANTICOAGULANT AT THE TIME OF SAMPLING.Performed By: #### [id number] #### [facility] [address] [place] [address], [facility] CENTERAPTDignity Health Arizona Specialty Hospital 70-77-7195tRMA Coag (Bld) [Time]25.8 sNormal 25.0-35.0The [facility] HospitalComment on above:Order Comment: No: Do not add to previous drawResult Comment: ALL RESULTS MUST BE INTERPRETED WITH RESPECT TO BLOOD DRAWING ARTIFACT OR DILUTION ERROR OF ANTICOAGULANT AT THE TIME OF SAMPLING. THE APTT SHOULD NOT BE USED TO MONITOR UNFRACTIONATED HEPARIN THERAPY, THIS LABORATORY NO LONGER HAS AN ESTABLISHED THERAPEUTIC RANGE BASED ON THE APTT. IT IS RECOMMENDED THAT THE [facility] - HEPARIN ASSAY (ANTI-XA ACTIVITY) BE USED FOR THIS PURPOSE.Performed By: #### [id number] #### [address] [place] [address], [facility] CENTERBACUMBERLAND HALL [facility] METABOLIC PANELon 42-08-0407Cadrkik [Mass/Vol]8.9 mg/dLNormal8.6-10.3The [facility] HospitalComment on above:Order Comment: No: Do not add to previous drawPerformed By: #### 33415, 07036, 01255 #### [facility] [address] [place] [address], USAChloride [Moles/Vol]100 mmol/DYiizno89-956Inq [facility] HospitalComment on above:Order Comment: No: Do not add to previous drawPerformed By: #### 38166, 24904, 29060 #### [facility] [address] [place] [address], USACO2 [Moles/Vol]30 mmol/GLpkuqm74-42Wxe [facility] HospitalComment on above:Order Comment: No: Do not add to previous draw Performed By: #### 29734, 30200, 86884 #### [facility] [address] [place] [address], USACreatinine [Mass/Vol]0.87 mg/dLNormal0.60-1.20The [facility] HospitalComment on above:Order Comment: No: Do not add to previous drawPerformed By: #### 36101, 32408, 22130 #### [facility] [address] [place] [address], USAGFR/1.73 sq M predicted among blacks MDRD (S/P/Bld) [Vol rate/Area]mL/min/{1.73_m2}Normal>60The [facility] Comment on above:Order Comment: No: Do not add to previous drawResult Comment: Calculation may not be valid for patients over 70 yearsPerformed By: #### 04016, 30695, 75882 #### [facility] [address] [place] [address], USAGFR/1.73 sq M predicted among non-blacks MDRD (S/P/Bld) [Vol rate/Area]mL/min/{1.73_m2}Normal>60The [facility] Comment on above:Order Comment: No: Do not add to previous drawResult Comment: Calculation may not be valid for patients over 70 yearsPerformed By: #### 23184, 18050, 01804 #### [facility] [address] [place] [address], USAGlucose [Mass/Vol]136 mg/aWIbfc52-430Hym [facility] HospitalComment on above:Order Comment: No: Do not add to previous drawPerformed By: #### 77535, 94463, 03890 #### [facility] [address] [place] [address], USAPotassium [Moles/Vol]3.3 mmol/LLow3.5-5.1The [facility] HospitalComment on above:Order Comment: No: Do not add to previous drawPerformed By: #### 37979, 70484, 03811 #### [facility] [address] [place] [address], USASodium [Moles/Vol]138 mmol/QQgyfrh884-696Jzs [facility] HospitalComment on above:Order Comment: No: Do not add to previous drawPerformed By: #### 13074, 56088, 33007 #### [facility] [address] [place] [address], USAUrea nitrogen [Mass/Vol]16 mg/dLNormal7-25The [facility] HospitalComment on above:Order Comment: No: Do not add to previous drawPerformed By: #### 56855, 33742, 52118 #### [facility] [address] [place] [address], USACBC COMPLETE BLOOD COUNTon 81-63-3750Zbfagzjifwa distribution width (RBC) [Ratio]13.1 %Bnpjuc92.5-15.0The [facility] HospitalComment on above:Order Comment: No: Do not add to previous draw Performed By: #### 95675 #### [facility] [address] [place] [address], USAHematocrit (Bld) [Volume fraction]37.6 %Gmxpte53.0-45.0The [facility] HospitalComment on above:Order Comment: No: Do not add to previous drawPerformed By: #### 98119 #### [facility] [address] [place] [address], USAHemoglobin (Bld) [Mass/Vol]12.3 g/rDUcxvxa16.0-15.0The [facility] HospitalComment on above:Order Comment: No: Do not add to previous drawPerformed By: #### 94472 #### [facility] [address] [place] [address], [facility] CENTERMCH (RBC) [Entitic mass]29.8 okZhdfji24.0-33.0The [facility] HospitalComment on above:Order Comment: No: Do not add to previous drawPerformed By: #### 11104 #### [facility] [address] [place] [address], [facility] CENTERMCHC (RBC) [Mass/Vol]32.7 g/cADofrsd38.0-35.0The [facility] HospitalComment on above:Order Comment: No: Do not add to previous drawPerformed By: #### 71901 #### [facility] [address] [place] [address], [facility] CENTERMCV (RBC) [Entitic vol]91.0 kVZxuztd00.0-98.0The [facility] HospitalComment on above:Order Comment: No: Do not add to previous drawPerformed By: #### 38434 #### [facility] [address] [place] [address], USANucleated RBC/100 WBC (Bld) [Ratio]0 %Normal0-0The [facility] HospitalComment on above:Order Comment: No: Do not add to previous drawPerformed By: #### 08488 #### [facility] [address] [place] [address], USAPLAT ZAY782 10*3/nNNwhgub383-877Yvz [facility] HospitalComment on above:Order Comment: No: Do not add to previous draw Performed By: #### 83073 #### [facility] [address] [place] [address], USARBC (Bld) [#/Vol]4.13 10*6/uLNormal3.80-5.00The [facility] HospitalComment on above:Order Comment: No: Do not add to previous drawPerformed By: #### 10525 #### [facility] [address] [place] [address], USAWBC (Bld) [#/Vol]7.39 10*3/uLNormal4.00-10.60The [facility] HospitalComment on above:Order Comment: No: Do not add to previous drawPerformed By: #### 26403 #### [facility] [address] [place] [address], USAMAGNESIUM BLOODon 08-84-4898Xshvrfxgt [Mass/Vol]2.0 mg/dL Normal1.9-2.7The [facility] HospitalComment on above:Order Comment: No: Do not add to previous drawPerformed By: #### 03938, 70850, 09510 #### [facility] [address] [place] [address], USAPHOSPHORUS BLOODon 07-37-1252Azttfuzmy [Mass/Vol]3.9 mg/dL Normal2.5-5.0The [facility] HospitalComment on above:Order Comment: No: Do not add to previous drawPerformed By: #### 49993, 07754, 70527 #### [facility] [address] [place] [address], USAPOC GLUCOSE LABon 53-51-7314Zjhggpt [Mass/Vol]183 mg/dLHigh 70-100The [facility] HospitalComment on above:Performed By: #### 18055 #### [facility] [address] [place] [address], [facility] CENTERGlucose [Mass/Vol]169 mg/aNRfnp73-869Yul [facility] HospitalComment on above:Performed By: #### 19708 #### [facility] [address] [place] [address], USAPROTHROMBIN TIMEon 22-30-7516LJA Coag (PPP) [Relative time] 1.04 {INR}Normal0.91-1.16The [facility] HospitalComment on above:Order Comment: No: Do not add to previous drawResult Comment: ACCCP RECOMMENDED INR FOR WARFARIN THERAPY ------- CONDITION INR PROPHYLAXIS OF VENOUS THROMBOSIS 2-3 (HIGH-RISK SURGERY) TREATMENT OF VENOUS THROMBOSIS 2-3 TREATMENT OF PULMONARY EMBOLISM 2-3 PREVENTION OF SYSTEMIC EMBOLISM: 2-3 ACUTE MYOCARDIAL INFARCTION TISSUE HEART VALVES VALVULAR HEART DISEASE ATRIAL FIBRILLATION RECURRENT SYSTEMIC EMBOLISM MECHANICAL HEART VALVE 2.5-3.5 FROM: ORAL ANTICOAGULANTS. MECHANISM OF ACTION, CLINICAL EFFECTIVENESS, AND OPTIMAL THERAPEUTIC RANGE. CHEST 1995;108:231S-246S.Performed By: #### 38938 #### [facility] [address] [place] [address], USAPT Coag (PPP) [Time]13.6 iYhpakd75.3-14.8The [facility] HospitalComment on above:Order Comment: No: Do not add to previous drawResult Comment: ALL RESULTS MUST BE INTERPRETED WITH RESPECT TO BLOOD DRAWING ARTIFACT OR DILUTION ERROR OF ANTICOAGULANT AT THE TIME OF SAMPLING.Performed By: #### 65346 #### [facility] [address] [place] [address], USARB'S 2 UNITSon 16-81-2529ZYDZHSLJNX INTERP 1CCincinnati VA Medical CenterComment on above:Performed By: #### 83279 #### [facility] [address] [place] [address], USACROSSMATCH INTERP 2CCincinnati VA Medical CenterComment on above:Performed By: #### 52583 #### [facility] [address] [place] [address], USAPRODUCT CODE [id number] Health Akron CampusComment on above:Performed By: #### 93951 #### [facility] [address] [place] [address], USAPRODUCT CODE [id number] Health Akron CampusComment on above:Performed By: #### 05902 #### [facility] [address] [place] [address], USAPRODUCT STATUS 1ROhio Valley Surgical HospitalComment on above:Result Comment: Result changed by IF on 11/15/2017 07:43. The previous value was XM.Performed By: #### 53828 #### [facility] [address] [place] [address], USAPRODUCT STATUS 2ROhio Valley Surgical HospitalComment on above:Result Comment: Result changed by IF on 11/15/2017 07:43. The previous value was XM.Performed By: #### 99578 #### [facility] [address] [place] [address], USAUNIT ABO 1ASumma Health Akron Campus Comment on above:Performed By: #### 75490 #### [facility] [address] [place] [address], USAUNIT ABO 2ANoDelaware County Hospital Comment on above:Performed By: #### 92776 #### [facility] [address] [place] [address], USAUNIT ID [id number] Health Akron CampusComment on above:Performed By: #### 62025 #### [facility] [address] [facility] [place] [address], USAUNIT ID [id number] Health Akron CampusComment on above:Performed By: #### 94852 #### [facility] [address] [facility] [place] [address], USAUNIT RH 1PosiSouthwest General Health CenterComment on above:Performed By: #### 37419 #### [facility] [address] [facility] [place] [place] [address], USAUNIT RH 2PosiSouthwest General Health CenterComment on above:Performed By: #### 87183 #### [facility] [address] [facility] [place] [place] [address], USAPOC GLUCOSE LABon 94-07-7043Nqdnedo [Mass/Vol]135 mg/dLHigh 70-100The [facility] HospitalComment on above:Performed By: #### 94157 #### [facility] [address] [place] [address], USABASIC METABOLIC PANELon 81-87-1199Udbsyzp [Mass/Vol]9.8 mg/dLNormal8.6-10.3The [facility] HospitalComment on above: Performed By: #### 95199 #### [facility] [address] [place] [address], USAChloride [Moles/Vol]98 mmol/DDcsfzb95-443Wye [facility] HospitalComment on above:Performed By: #### 11190 #### [facility] [address] [place] [address], USACO2 [Moles/Vol]29 mmol/OHcqftf25-61Buj [facility] HospitalComment on above:Performed By: #### 12456 #### [facility] [address] [place] [address], USACreatinine [Mass/Vol]0.96 mg/dLNormal0.60-1.20The [facility] HospitalComment on above:Performed By: #### 09194 #### [facility] [address] [place] [address], USAGFR/1.73 sq M predicted among blacks MDRD (S/P/Bld) [Vol rate/Area]mL/min/{1.73_m2}Normal>60The [facility] Comment on above:Result Comment: Calculation may not be valid for patients over 70 yearsPerformed By: #### 90680 #### [facility] [address] [place] [address], USAGFR/1.73 sq M predicted among non-blacks MDRD (S/P/Bld) [Vol rate/Area]57 ml/min/1.73sq mAbnormal>60The [facility] HospitalComment on above:Result Comment: Calculation may not be valid for patients over 70 yearsPerformed By: #### 02779 #### [facility] [address] [place] [address], USAGlucose [Mass/Vol]174 mg/cBDlzp02-139Xdn [facility] HospitalComment on above:Performed By: #### 70216 #### [facility] [address] [place] [address], USAPotassium [Moles/Vol]3.5 mmol/LNormal3.5-5.1The [facility] HospitalComment on above:Performed By: #### 76561 #### [facility] [address] [facility] [place] [place] [address], [facility] CENTERSodium [Moles/Vol]136 mmol/DMdlbmb429-661Hzc [facility] HospitalComment on above:Performed By: #### 12056 #### [facility] [address] [place] [address], USAUrea nitrogen [Mass/Vol]20 mg/dLNormal7-25The [facility] HospitalComment on above:Performed By: #### 63707 #### [facility] [address] [place] [address], [facility] CENTERCBC W/DIFFon 95-29-8164MUL BASOPHILS0.1 10*3/uLNormal 0.0-0.2The [facility] HospitalComment on above:Performed By: #### 27735 #### [facility] [address] [place] [address], [facility] CENTERABS IMM GRANS0.1 10*3/uLNormal0.0-0.2The [facility] HospitalComment on above:Performed By: #### 02099 #### [facility] [address] [place] [address], USAABS NEUTROPHILS5.5 10*3/uLNormal1.6-7.6The [facility] HospitalComment on above:Performed By: #### 88628 #### [facility] [address] [place] [address], [facility] CENTERBasophils/100 WBC (Bld)0.7 %Normal0.0-1.0The [facility] HospitalComment on above:Performed By: #### 59301 #### [facility] [address] [place] [address], [facility] CENTEREosinophils (Bld) [#/Vol]0.4 10*3/uLNormal0.0-0.5The [facility] HospitalComment on above:Performed By: #### 78280 #### [facility] [address] [place] [address], USAEosinophils/100 WBC (Bld)4.8 %Normal0.0-6.0The [facility] HospitalComment on above:Performed By: #### 28492 #### [facility] [address] [place] [address], USAErythrocyte distribution width (RBC) [Ratio]13.1 %Normal 11.5-15.0The [facility] HospitalComment on above:Performed By: #### 41746 #### [facility] [address] [place] [address], USAHematocrit (Bld) [Volume fraction]41.8 %Cyhgzf93.0-45.0The [facility] HospitalComment on above:Performed By: #### 08913 #### [facility] [address] [place] [address], USAHemoglobin (Bld) [Mass/Vol]13.6 g/hZUehgfu53.0-15.0The [facility] HospitalComment on above:Performed By: #### 38408 #### [facility] [address] [facility] [place] [address], USAIMMATURE GRANS0.6 %Normal0.0-1.0The [facility] HospitalComment on above:Performed By: #### 12215 #### [facility] [address] [place] [address], USALymphocytes (Bld) [#/Vol]2.1 10*3/uLNormal1.2-4.0The [facility] HospitalComment on above:Performed By: #### 81671 #### [facility] [address] [place] [address], USALymphocytes/100 WBC (Bld)23.9 %Ecwejy01.0-45.0The [facility] HospitalComment on above:Performed By: #### 14129 #### [facility] [address] [place] [address], [facility], OKLAHOMAH (RBC) [Entitic mass]29.8 fsXgblki08.0-33.0The [facility] HospitalComment on above:Performed By: #### 14658 #### [facility] [address] [place] [address], [facility] CENTERMCHC (RBC) [Mass/Vol]32.5 g/wZNubsua07.0-35.0The [facility] HospitalComment on above:Performed By: #### 19717 #### [facility] [address] [place] [address], [facility] CENTERMCV (RBC) [Entitic vol]91.7 xNKlhfwj42.0-98.0The [facility] HospitalComment on above:Performed By: #### 26345 #### [facility] [address] [place] [address], USAMonocytes (Bld) [#/Vol]0.7 10*3/uLNormal0.1-1.0The [facility] HospitalComment on above:Performed By: #### 92359 #### [facility] [address] [place] [address], USAMONOS7.8 %Normal5.0-12.0The [facility] HospitalComment on above:Performed By: #### 68782 #### [facility] [address] [place] [address], USANeutrophils/100 WBC (Bld)62.2 %Tsaage79.0-72.0The [facility] HospitalComment on above:Performed By: #### 73763 #### [facility] [address] [place] [address], USANucleated RBC/100 WBC (Bld) [Ratio]0 %Normal0-0The [facility] HospitalComment on above:Performed By: #### 11562 #### [facility] [address] [facility] [place] [place] [address], USAPLAT SEW388 10*3/wICkxlgr410-450Xdv [facility] HospitalComment on above:Performed By: #### 70725 #### [facility] [address] [place] [address], [facility] CENTERRBC (Bld) [#/Vol]4.56 10*6/uLNormal3.80-5.00The [facility] HospitalComment on above:Performed By: #### 22699 #### [facility] [address] [facility] [place] [address], [facility] CENTERWBC (Bld) [#/Vol]8.77 10*3/uLNormal4.00-10.60The [facility] HospitalComment on above:Performed By: #### 75825 #### [facility] [address] [place] [address], [facility] CENTERPROTHROMBIN TIMEon 17-23-7169BWO Coag (PPP) [Relative time] 1.05 {INR}Normal0.91-1.16The [facility] HospitalComment on above:Result Comment: ACCCP RECOMMENDED INR FOR WARFARIN THERAPY ------- CONDITION INR PROPHYLAXIS OF VENOUS THROMBOSIS 2-3 (HIGH-RISK SURGERY) TREATMENT OF VENOUS THROMBOSIS 2-3 TREATMENT OF PULMONARY EMBOLISM 2-3 PREVENTION OF SYSTEMIC EMBOLISM: 2-3 ACUTE MYOCARDIAL INFARCTION TISSUE HEART VALVES VALVULAR HEART DISEASE ATRIAL FIBRILLATION RECURRENT SYSTEMIC EMBOLISM MECHANICAL HEART VALVE 2.5-3.5 FROM: ORAL ANTICOAGULANTS. MECHANISM OF ACTION, CLINICAL EFFECTIVENESS, AND OPTIMAL THERAPEUTIC RANGE. CHEST 1995;108:231S-246S.Performed By: #### 96108 #### [facility] [address] [place] [address], [facility] CENTERPT Coag (PPP) [Time]13.7 fNuvrow64.3-14.8The [facility] HospitalComment on above:Result Comment: ALL RESULTS MUST BE INTERPRETED WITH RESPECT TO BLOOD DRAWING ARTIFACT OR DILUTION ERROR OF ANTICOAGULANT AT THE TIME OF SAMPLING.Performed By: #### 13392 #### [facility] [address] [place] [address], [facility] CENTERTYPE AND CROSSMATCHon 84-33-6834GNX INTERPRETATIONANormal [facility] HospitalComment on above:Performed By: #### 12910 #### [facility] [address] [place] [address], [facility] INTERPRETATIONPositiveNormalThOhioHealth Hardin Memorial HospitalComment on above:Performed By: #### 09010 #### [facility] [address] [facility] Vital Signs Date TimeVital SignValuePerforming VsssykblzVjzzjkkr65-23-6116 13:07-0500Heart rate80 /Kenia Mills MD Work Phone: bon [facility]11-27-2024 13:07-0500 Respiratory rate17 /Kenia Mills MD Work Phone: [facility]11-27-2024 12:00-0500Body cfjviqtnoss32.01 [degF]Bill Mills MD Work Phone: [facility]11-27-2024 06:15-0500Diastolic blood uozpwbyu29 mm[Hg]Bill Mills MD Work Phone: [facility]11-27-2024 06:15-8896NzS4% (BldA) [Mass fraction]94 %Bill Mills MD Work Phone: [facility]11-27-2024 06:15-0500Systolic blood npnrwedj913 mm[Hg]Bill Mills MD Work Phone: [facility]11-27-2024 06:00-0500Body mass index (BMI) [Ratio]36.25 kg/m2IkwxjBill Mills MD Work Phone: [facility]11-27-2024 06:00-0500Body jupqkv85.8 kgBill Mills MD Work Phone: [facility]11-26-2024 06:28-0500Body eyyari211.6 cmBill Mills MD Work Phone: [facility]11-21-2024 11:40-0500Diastolic blood mm[Hg][address]11-21-2024 11:40-0500 Systolic blood xlarinoz126 mm[Hg][address]11-21-2024 10:56-0500Body gfjwca719.[address] [place], [place] [address]11-21-2024 10:56-0500 Body mass index (BMI) [Ratio]35.15 kg/m2St [address] [place], [place] [address]11-21-2024 10:56-0500Body zxijzcyujwm96.5 [degF][address]11-21-2024 10:56-0500Body .[address] [place], [place] [address]11-21-2024 10:56-0500 Heart rate64 /minSt [address] [place], [place] [address]11-21-2024 10:56-0500Respiratory rate16 /minSt [address] [place], [place] [address]597511-21-2024 10:56-7944IbY0% (BldA) [Mass fraction]91 %[address] Encounters Encounter DateEncounter [facility] ProviderFacilityStart: 01-06-2024 End: 46-26-9192Sxilxgagqs and management of inpatientDaremigio Albrechtnte MD Work Phone: [facility] CVICUComment on above: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 [place] Campustart: 11-12-2023 End: 34-05-1328aceemxcplyUKYFLWest Valley Hospitaltart: 08-01-2022 End: 56-58-4032Fupgewyalq hospital visit by physicianBill Mills MD Work Phone: [facility] ScanComment on above:History of AAA (abdominal aortic aneurysm) repairStart: 07-09-2022 End: 66-76-5269idtgasxfzcYxmlqzf KellerFacility:[facility]: 07-09-2022 End: 89-97-9734whovblmfqgUS Richard Keller Work Phone: [facility] Work Phone: Start: 07-09-2022 End: 55-86-2382Qpdumgg encounter procedureMD Amie Ag Work Phone: [facility] [place] Work Phone: Start: 01-04-2022 End: 23-68-9842gfhrailtojJQ DOCTOR MISCFacility:L7Sizza: 12-20-2021 End: 09-38-4518ducxqnussxNcdepwt KellerFacility:[facility]art: 12-20-2021 End: 36-02-2504mfbewgnewhVU Richard Keller Work Phone: [facility] Work Phone: Start: 12-20-2021 End: 57-46-4301Vdmmqfl encounter procedureMD Amie Ag Work Phone: [place] [facility] [facility]: [facility] End: 08-21-3582Pecqxurwhp and management of inpatientPAUL LAST [facility]2017 End: 72-35-3261Pepchdpaxg and management of inpatientPAUL LAST Facility:[facility] Procedures DateProcedureProcedure DetailPerforming ClinicianStart: 31-82-3000Vigzk metabolic panel calcium totalBill Mills MD Work Phone: Start: 21-82-8229Cmxcbqe blood reagent stripBill Mills MD Work Phone: Start: 21-06-6693Ivfxjrflku exam abdomen 2 viewsBill Mills MD Work Phone: Start: 31-15-6179Lbhqmdz blood reagent stripBill Mills MD Work Phone: Start: 28-80-3594Usukj of magnesiumBill Mills MD Work Phone: Start: 83-01-0121Toaueow blood reagent stripBill Mills MD Work Phone: Start: 38-21-3238Txsga count complete automatedBill Mills MD Work Phone: Start: 01-06-2024 End: 63-04-5947Rgwaa count complete automatedBill Mills MD Work Phone: Start: 01-06-2024 End: 76-89-1621Uqgmx rpr dplmnt aorto-aortic ndgft rptBill Mills MD Work Phone: Start: 01-06-2024 End: 96-19-6616Yvtso rpr dta exp coverage w/o art originBill Mills MD Work Phone: Start: 40-36-7833LKTX HEMO INTERFACEDaremigio Mills MD Work Phone: Start: 86-15-8460Eakrmlk blood reagent stripBill Mills MD Work Phone: Start: 30-35-9214Bgwti metabolic panel calcium total Bill Mills MD Work Phone: Start: 34-95-5085Irbms typing serologic aboBill Mills MD Work Phone: Start: 85-78-1154Erdmsln bacterial quanttative colony count urineDaremigio Mills MD Work Phone: Start: 02-93-3633Bhrof dip stick/tablet rgnt auto w/o microscopyBill Mills MD Work Phone: Start: 04-65-8647Pzhmrdaabp other sourceDaremigio Mills MD Work Phone: Start: 40-57-5345QXGNSZRCKHS OF ABDOMINAL AORTA USING OTHER CONTRASTPAUL LASTStart: 87-80-5946ZCQYAZT OF ARTERIAL SATURATION, PERIPHERAL, PERC KEV LASTStart: 92-21-6541SINONSXXFGJ OF ABD AORTA WITH INTRALUM DEV, PERC APPROACHPAUL LASTStart: 43-23-8952Jolfebqf screenPAUL LASTComment on above:Performed By: #### [id number] #### [address] [address], USAStart: 09-42-0580WADGRTG OF ARTERIAL SATURATION, PERIPHERAL, PERC APPROACHPAUL LASTStart: 46-37-8850NQDKSWRCY OF INFERIOR MESENTERIC ARTERY, PERC ENDO APPROACHPAUL LASTStart: 80-33-3097YHVHOFD ASSISTED PROCEDURE OF TRUNK, PERC ENDO APPROACHPAUL LASTStart: 64-39-9357EQCRZLPX OF BILATERAL URETERS WITH INTRALUMINAL DEVICE, ENDOOBINNA EKWENNAStart: 71-21-2241Yyqxfcjy screenPAUL LASTComment on above: Performed By: #### [id number] #### [facility] [place] [address], [facility] Plan of Treatment DateCare ActivityDetailAuthorStart: 86-71-9760UKF test (Diabetes, CKD 3-4, OR last GFR 15-59)GFR test (Diabetes, CKD 3-4, OR last GFR 15-59)[facility] HospitalStart: 46-05-3875CMB test (Diabetes, CKD 3-4, OR last GFR 15-59)GFR test (Diabetes, CKD 3-4, OR last GFR 15-59)[facility] HospitalStart: 01-06-2024 End: 78-28-4728Bvhib rpr dplmnt aorto-aortic ndgft rptABDOMINAL AORTIC ANEURYSM REPAIR ENDOVASCULAR Mechanical breakdown of aortic graft, initial encounter ([facility]) 01/06/2024 9:00 AM [facility] 01-01-2024 End: 45-83-7356Tfktmtsbga with Reflex to [facility] [employer] Work Phone: Comment on above:Expected: 01/01/2024, Expires: Occurrences starting 01/01/2024 until 01/01/2024Start: 10-12-2023 COVID-19 Vaccine ( season)COVID-19 Vaccine ( season)[facility] HospitalStart: 62-81-4179Absvkjujw vaccinationFlu vaccine (#1)[facility]Critical[facility] HospitalStart: 31-37-1379Dezrvw Wellness Visit (Medicare)Annual Wellness Visit (Medicare)[facility] HospitalLeverStart: 22-61-7547Xtusvogla vaccinationFlu vaccine (Season Ended)[facility] Xopikart: 12-24-2021 Annual Wellness Visit (AWV)Annual Wellness Visit (AWV)[facility] [employer] Start: 46-76-5532LgnmkbqitPaulding County Hospitaltart: 87-31-1999Klmwrboxkca Syncytial Virus (RSV) or age 60 yrs+ (1 - 1-dose 75+ series)Respiratory Syncytial Virus (RSV) or age 60 yrs+ (1 - 1-dose 75+ series)[facility]: 40-19-1126Qhxkbwock for osteoporosisDEXA (modify frequency per FRAX score)[facility]: 97-12-8765Ndxfzxsd vaccine (1 of 2)Shingles vaccine (1 of 2)[facility]: 25-27-7133JVfS/Tdap/Td vaccine (1 - Tdap)DTaP/Tdap/Td vaccine (1 - Tdap)[facility]: 56-54-9042Osecdltdc C screeningHepatitis C screenBON [facility] Hospitalart: 04-50-0438Wbsql screening for proteinDiabetic Alb to Cr ratio (uACR) testCentra [facility] Hospital: 1945Vfmavpzexx ScreenDepression ScreenRiverside Doctors' [facility]: 47-63-3462Hkqnl panelLipidsRIVERSIDE HEALTH SYSTEM Start: 33-90-3940Hmlnfdrluxfx 65+ years Vaccine (1 - PCV)Pneumococcal 65+ years Vaccine (1 - PCV)[facility]: 87-46-9291Fbnmhmmpojyq 65+ years Vaccine (1 of 2 - PCV)Pneumococcal 65+ years Vaccine (1 of 2 - PCV)[facility]: 81-73-1641RPWSX-19 Vaccine (#1)COVID-19 Vaccine (#1)[facility] End: 62-47-5417Hvjmn glucose - POCTBlood glucose - POCT Point of Care Testing Routine One Time for 1 Occurrences starting 01/07/2024 until 01/07/2024 [facility] on above:One Time for 1 Occurrences starting 01/07/2024 until 4Continuous pulse oximetryPulse oximetry, continuous Respiratory Care Routine Every 4hr until discontinued starting 01/06/2024 [facility] on above:Every 4hr until discontinued starting 01/06/2024 End: 74-18-6320KZA ABDOMEN PELVIS W WO CONTRASTBON [facility] Work Phone: Comment on above:1 Occurrences starting 08/01/2022 until 3Glucose [Mass/volume] in Serum or PlasmaBon [facility] Comment on above:4X Daily (AC & HS) until discontinued starting 01/06/2024s Needed until discontinued starting 01/06/2024Nasal Cannula OxygenNasal Cannula Oxygen Respiratory Care Routine Daily until discontinued starting 01/06/2024 [facility] on above:Daily until discontinued starting 01/06/2024Oxygen therapy [Minimum Data Set]Initiate Oxygen Therapy Protocol Respiratory Care Routine As Needed until discontinued starting 01/06/2024 [facility] on above:As Needed until discontinued starting 01/06/2024 End: 06-10-8484Nbwoxsiid, urinePregnancy, urine Lab Routine Tomorrow AM for 1 Occurrences starting 01/07/2024 until 01/07/2024 [facility] on above:Tomorrow AM for 1 Occurrences starting 01/07/2024 until 01/07/2024 Spirometry panelIncentive spirometry Respiratory Care Routine Every 2hr while awake until discontinued starting 01/06/2024 [facility] on above:Every 2hr while awake until discontinued starting 01/06/2024TYPE AND SCREENBon [facility] Payers DatePayer CategoryPayerPolicy [id number] Cross Blue [id number] [id number] [id number] 2..[id number] 2..[id number] 2..1.350698.3.57[id number] 2.0.1.81957[id number] 2.840.1.752949.3.57[id number] [id number] [id number] 2..840.1.204051.3.579.2.531 Social History DateTypeDetailFacilityTobacco smoking status NHISUnknown if ever smokedHolmes County [facility] Work Phone: Start: 91-24-6301Dmd Assigned At BirthSelect Medical [facility], Edwin Shawtart: 34-20-7641Dsffvrh smoking status NHISEx-smokerBON BARROW NEUROLOGICAL INSTITUTEHaus [employer] [facility] HEALTHHistory of tobacco useCurrent smokerFALL RIVER EMERGENCY HOSPITALHaus [employer] [facility] History of tobacco useCigarette SmokerFALL RIVER EMERGENCY HOSPITALMuxlimDAYTON CHILDREN'S HOSPITALStart: 12-24-2021 Tobacco use and exposureSmokeless tobacco non-userBON BARROW NEUROLOGICAL INSTITUTEMuxlimDAYTON CHILDREN'S HOSPITALStart: 01-02-2022 End: 04-37-1766Wjzyrwg intakeEx-drinker (finding)[facility] SYSTEMStart: 11-65-1290Fzbirjo CommentrareFALL RIVER EMERGENCY HOSPITALHaus [employer] [facility] HEALTHStart: 97-97-1440Dyu Assigned At BirthNot on fileFALL RIVER EMERGENCY HOSPITALMuxlimDAYTON CHILDREN'S HOSPITALStart: 01-01-2024 End: 23-45-6681Fkfmwkj of Social functionBon [facility] MaryvalePharmly [facility] HospitalStart: 01-01-2024 End: 27-47-7507Ojrolvb use panelWythe County Community HospitalPharmly [facility]field HospitalPhysical abuseDeniesWythe County Community HospitalPharmly [facility] HospitalHas the electric, gas, oil, or water company threatened to shut off services in your home in past 12MoNoBon [facility] MaryvaleCriticalMetrics Health(I/We) worried whether (my/our) food would run out before (I/we) got money to buy more. Never trueBon [facility] MaryvalePharmly [facility] Medical Equipment Procedure CodeEquipment CodeEquipment Original TextEquipment IdentifierDates Graft Evar L102mm [id number] Aorto Uni Il Free [place] Cls Web - [id number]: 03-90-0045Typpw Evar L93mm [id number] Cath 14fr Limb Dst Dsgn C Del - [id number]: 24-18-1220Saqch Endoprosthesis L 39 Mm Fabiola 6 Mm Cath L 135 Cm - [id number]: 78-29-4764Ebxln Endoprosthesis L 39 Mm Fabiola 6 Mm Cath L 135 Cm - [id number]: 01-06-2024 Hospital Discharge instructions 01-07-2024 Note Date & UmzqEfaaNtnorsiy01-18-9516 Hospital Discharge instructions* Discharge Instructions* Carla Hanley RN - 01/07/2024 12:55 PM EST atient Instructions: Activity: no heavy lifting, pushing, pulling for 6 weeks, no driving for 2 weeks or while on analgesics Diet: As tolerated Follow-up with Bill Mills MD in 4 weeks. See pre-printed instructions in chart and given to patient upon discharge. Discharge Medications: Medication List CONTINUE taking these medications aspirin 81 MG chewable tablet cetirizine 10 MG tablet; Commonly known as: ZYRTEC metFORMIN 500 MG extended release tablet; Commonly known as: GLUCOPHAGE-XR sertraline 50 MG tablet; Commonly known as: ZOLOFT simvastatin 20 MG tablet; Commonly known as: ZOCOR vitamin D 50 MCG (2000 UT) Caps capsule; Commonly known as: CHOLECALCIFEROL * Discharge Instr - Diet* Carla Hanley RN - 01/07/2024 7:39 AM EST Images from the original note were not included. Good nutrition is important when healing from an illness, injury, or surgery. Follow any nutrition recommendations given to you during your hospital stay. If you were given an oral nutrition supplement while in the hospital, continue to take this supplement at home. You can take it with meals, in-between meals, and/or before bedtime. These supplements can be purchased at most local grocery stores, pharmacies, and chain [employer]-stores. If you have any questions about your diet or nutrition, call the hospital and ask for the dietitian. A Healthy Heart: Care Instructions Overview Coronary artery disease, also called heart disease, occurs when a substance called plaque builds upin the vessels that supply oxygen-rich blood to your heart muscle. This can narrow the blood vessels and reduce blood flow. A heart attack happens when blood flow is completely blocked. A high-fat diet, smoking, and other factors increase the risk of heart disease. Your doctor has found that you have a chance of having heart disease. A heart- healthy lifestyle canhelp keep your heart healthy and prevent heart disease. This lifestyle includes eating healthy, being active, staying at a weight that's healthy for you, and not smoking or using tobacco. It also includes taking medicines as directed, managing other health conditions, and trying to get a healthy amount of sleep. Follow-up care is a raines part of your treatment and safety. Be sure to make and go to all appointments, and call your doctor if you are having problems. It's also a good idea to know your test resultsand keep a list of the medicines you take. How can you care for yourself at home? Diet Use less salt when you cook and eat. This helps lower your blood pressure. Taste food before salting. Add only a little salt when you think you need it. With time, your taste buds will adjust to lesssalt. Eat fewer snack items, fast foods, canned soups, and other high-salt, high-fat, processed foods. Read food labels and try to avoid saturated and trans fats. They increase your risk of heart disease by raising cholesterol levels. Limit the amount of solid fat--butter, margarine, and shortening--you eat. Use olive, peanut, or canola oil when you cook. Bake, broil, and steam foods instead of frying them. Eat a variety of fruit and vegetables every day. Dark green, deep orange, red, or yellow fruits andvegetables are especially good for you. Examples include spinach, carrots, peaches, and berries. Foods high in fiber can reduce your cholesterol and provide important vitamins and minerals. High-fiber foods include whole-grain cereals and breads, oatmeal, beans, brown rice, citrus fruits, and apples. Eat lean proteins. Heart-healthy proteins include seafood, lean meats and poultry, eggs, beans, peas, nuts, seeds, and soy products. Limit drinks and foods with added sugar. These include candy, desserts, and soda pop. Heart-healthy lifestyle If your doctor recommends it, get more exercise. For many people, walking is a good choice. Or you may want to swim, bike, or do other activities. Bit by bit, increase the time you're active every day. Try for at least 30 minutes on most days of the week. Try to quit or cut back on using tobacco and other nicotine products. This includes smoking and vaping. If you need help quitting, talk to your doctor about stop-smoking programs and medicines. Thesecan increase your chances of quitting for good. Quitting is one of the most important things you can do to protect your heart. It is never too late to quit. Try to avoid secondhand smoke too. Stay at a weight that's healthy for you. Talk to your doctor if you need help losing weight. Try to get 7 to 9 hours of sleep each night. Limit alcohol to 2 drinks a day for men and 1 drink a day for women. Too much alcohol can cause health problems. Manage other health problems such as diabetes, high blood pressure, and high cholesterol. If you think you may have a problem with alcohol or drug use, talk to your doctor. Medicines Take your medicines exactly as prescribed. Call your doctor if you think you are having a problem with your medicine. If your doctor recommends aspirin, take the amount directed each day. Make sure you take aspirin and not another kind of pain reliever, such as acetaminophen (Tylenol). When should you call for help? Call 911 if you have symptoms of a heart attack. These may include: Chest pain or pressure, or a strange feeling in the chest. Sweating. Shortness of breath. Pain, pressure, or a strange feeling in the back, neck, jaw, or upper belly or in one or both shoulders or arms. Lightheadedness or sudden weakness. A fast or irregular heartbeat. After you call 911, the wood web weaving machine operator may tell you to chew 1 adult-strength or 2 to 4 low-dose aspirin. Wait for an ambulance. Do not try to drive yourself. Watch closely for changes in your health, and be sure to contact your doctor if you have any problems. Where can you learn more? Go to https://www.[employer].net/patientEd and enter F075 to learn more about A Healthy Heart: Care Instructions. Current as of: August 03, 2022 Content Version: 14.2 2023 rollApp. Care instructions adapted under license by [facility]. If you have questions about a medical condition or this instruction, always ask your healthcare professional. [employer] disclaims any warranty or liability for your use of this information. * Attachments The following attachments cannot be sent through Care Everywhere. * Aortic Aneurysm Abdominal or Thoracic: Endovascular Repair: Post-op ([place]) documented in this encounterBon [facility] course Narrative 01-07-2024 Note Date & LwdrEjlpMczmkecq35-41-4665 Hospital course Narrative* Bill Mills MD - 01/07/2024 12:26 PM EST Images from the original note were not included. VASCULAR SURGERY DISCHARGE SUMMARY Patient Identification Krissy Owens is a 78 y.o. female. 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 See pre-printed instructions in chart and given to patient upon discharge. Discharge Medications: Medication List CONTINUE taking these medications aspirin 81 MG chewable tablet cetirizine 10 MG tablet; Commonly known as: ZYRTEC metFORMIN 500 MG extended release tablet; Commonly known as: GLUCOPHAGE-XR sertraline 50 MG tablet; Commonly known as: ZOLOFT simvastatin 20 MG tablet; Commonly known as: ZOCOR vitamin D 50 MCG (1999 UT) Caps capsule; Commonly known as: CHOLECALCIFEROL HPI and Hospital Course: 78-year-old female underwent placement of a proximal aorto uni iliac extension in the suprarenal position due to a type Ia endoleak with bilateral renal snorkels. Normal postoperative course. She was discharged home on postoperative day #1 in good condition. Instructed to follow-up in the office in 4 to 6 weeks. Bill Mills MD FACS documented in this encounterBon [facility] History of Present illness Narrative 01-07-2024 Note Date & [id number] History of Present illness Narrative* Bill Mills MD - 01/07/2024 12:22 PM EST Images from the original note were not included. VASCULAR SURGERY PROGRESS NOTE POST-OP EVAR 01/07/2024 12:23 PM Krissy Owens 1945 [id number] SUBJECTIVE: Patient awake and alert. No complaints. Good pain control. Denies nausea. SaO2 low however patient and son state that she normally runs in the 80s. OBJECTIVE Physical VITALS: BP 100/66 Pulse 72 Temp 98 F (36.7 C) (Oral) Resp 22 Ht 1.626 m (5' 4 ) Wt 95.8 kg (211 lb 3.2 oz) SpO2 94% BMI 36.25 kg/m CONSTITUTIONAL: awake, alert, cooperative, no apparent distress and appears stated age ABDOMEN: soft, non-tender, non-distended, incision sites C+D EXTREMITIES: warm, no ischemia or edema NEUROLOGIC: Mental status unchanged. Motor and sensory function intact. Data Hemoglobin Date/Time Value Ref Range Status 01/06/2024 04:11 PM 10.5 (L) 11.9 - 15.1 g/dL Final Hematocrit Date/Time Value Ref Range Status 01/06/2024 04:11 PM 35.5 (L) 36.3 - 47.1 % Final Sodium Date/Time Value Ref Range Status 01/01/2024 11:59 AM 140 136 - 145 mmol/L Final Potassium Date/Time Value Ref Range Status 01/01/2024 11:59 AM 4.6 3.7 - 5.3 mmol/L Final Chloride Date/Time Value Ref Range Status 01/01/2024 11:59 AM 101 98 - 107 mmol/L Final CO2 Date/Time Value Ref Range Status 01/01/2024 11:59 AM 27 20 - 31 mmol/L Final BUN Date/Time Value Ref Range Status 01/01/2024 11:59 AM 19 8 - 23 mg/dL Final ASSESSMENT AND PLAN 78 y.o. female doing well status post EVAR/bilateral renal snorkel Plan home today. Breathing treatment and pulmonary toilet. Follow-up in Office. Continue aspirin. Call for problems. N * Caitlin Holcomb - 01/07/2024 11:05 AM EST Transitions of Care Pharmacy Service Medication Review The patient's list of current home medications has been reviewed. Source(s) of information: Patient, [employer] Based on information provided by the above source(s), no changes to the patient's home medication list were necessary. Please review the ACTION REQUESTED section of this note for any discrepancies on current hospital orders. I changed or updated the following medications on the patient's home medication list: Removed N/A Added N/A Adjusted N/A Other Notes N/A PROVIDER ACTION REQUESTED Medications that need to be addressed by a physician/nurse practitioner: Current inpatient order(s) Action requested by pharmacy N/A Please feel free to call me with any questions about this encounter. Thank you. This note will be reviewed and co-signed by the Transitions of Care Pharmacist. Caitlin Holcomb PharmD student Transitions of Care Pharmacy Service Prior to Admission medications Medication Sig Start Date End Date Taking? Authorizing Provider vitamin D 50 MCG (1999) CAPS capsule Take 1 capsule by mouth daily Provider, MD Lucio sertraline (ZOLOFT) 50 MG tablet Take 1 tablet by mouth daily 11/08/21 Lucio Sanchez MD cetirizine (ZYRTEC) 10 MG tablet Take 1 tablet by mouth daily 03/17/12 Lucio Sanchez MD simvastatin (ZOCOR) 20 MG tablet Take 1 tablet by mouth nightly 11/25/21 Lucio Sanchez MD metFORMIN (GLUCOPHAGE-XR) 500 MG extended release tablet Take 1 tablet by mouth daily (with breakfast) 11/08/21 Lucio Sanchez MD aspirin 81 MG chewable tablet Take 1 tablet by mouth daily Lucio Sanchez MD * Oracio Reed MD - 01/07/2024 8:28 AM EST Images from the original note were not included. [facility] Office: [phone] Jose Cruz Win DO, David Mariano DO, Elia Alarcon DO, Johnson Connor DO, Virginie Knott MD, Heather Dawn MD, Kameron Farrell MD, Alexia Montez MD, Evelio Scruggs MD, Miguel Mock MD, Phoenix Fox MD, Deborah Rojas DO, Savannah Lomeli MD, Omari Cortes MD, Samy Win DO, Mikayla Real MD, Carlin Mensah DO, Aliyah Menjivar MD, Sailaja Moreno MD, Dominga Narayanan MD, Cristopher Kline MD, Andrew Ordonez MD, Neva Holguin MD, Jack Luong MD, Max Wright MD, Adin Gannon MD, Oracio Reed MD, Cesar Vera DO, Raj Colbert MD, Acacia Blackwell CNP, Sheri Whitten CNP, Cesar Wayne CNP, Yumi Carrillo DNP, Shaylee Cyr CNP, Carla Chaney CNP, Carla James CNP, Lizbeth Mccloud CNP, Meme Webber PA-C, Adriane Blevins PA-C, Shannon Pate,YUMI, Naina Gan, YUMI, Bijal Sánchez CNP, Marilin Glaser CNP, Renate Mejia CNP, Aundrea Parra, YUMI [facility] IN-PATIENT SERVICE [facility] Progress Note 01/07/2024 8:28 AM Name: Krissy Owens Acct: [id number] Room: Day: 1 Admit Date: 01/06/2024 6:14 AM PCP: Amie Ag MD Code Status: Full Code Subjective: C/C: Type Ia endoleak Interval History Status: improved. Patient seen and examined at bedside this morning. No acute events overnight. Resting comfortably in bedside chair. Patient denies any pain, chest pain, lightheadedness, dizziness, shortness of breath, fever or chills. BP is well- controlled. Tolerating oral diet Brief History: Patient is a 78-year-old female who presented for mechanical breakdown of aortic graft. Patient taken for placement of aortic extension With snorkeling of renal artery and possible SMA. Patient admitted under vascular and hospitalist team was consulted for medical management. Patient had successfulproximal extension with aorto uni iliac limb and placement of bilateral renal snorkel's. Patient tolerated procedure well. Review of Systems: Constitutional: negative for chills, fevers, sweats Respiratory: negative for cough, dyspnea on exertion, shortness of breath, wheezing Cardiovascular: negative for chest pain, chest pressure/discomfort, lower extremity edema, palpitations Gastrointestinal: negative for abdominal pain, constipation, diarrhea, nausea, vomiting Neurological: negative for dizziness, headache Medications: Allergies: No Known Allergies Current Meds: Scheduled Meds: sertraline 50 mg Oral Daily cetirizine 10 mg Oral Daily atorvastatin 10 mg Oral Daily sodium chloride flush 5-40 mL IntraVENous 2 times per day aspirin 81 mg Oral Daily insulin lispro 0-4 Units SubCUTAneous 4x Daily AC & HS Continuous Infusions: lactated ringers Stopped (01/07/24 0600) sodium chloride dextrose PRN Meds: sodium chloride flush, sodium chloride, potassium chloride OR potassium alternative oral replacement OR potassium chloride, magnesium sulfate, morphine OR morphine, hydrALAZINE,glucose, dextrose bolus OR dextrose bolus, glucagon (rDNA), dextrose Data: Past Medical History: has a past medical history of AAA (abdominal aortic aneurysm) (HCC), Cancer (HCC), Diabetes mellitus (HCC), History of blood transfusion, Hyperlipidemia, Hypertension, Seasonal allergies, and Varicose veins of both lower extremities. Social History: reports that she has quit smoking. Her smoking use included cigarettes. She has never used smokeless tobacco. She reports that she does not currently use alcohol. She reports that shedoes not use drugs. Family History: Family History Problem Relation Age of Onset Cancer Father Cancer Sister Vitals: BP 100/66 Pulse 72 Temp 98.1 F (36.7 C) (Oral) Resp 22 Ht 1.626 m (5' 4 ) Wt 95.8 kg (211lb 3.2 oz) SpO2 94% BMI 36.25 kg/m Temp (24hrs), Av.6 F (36.4 C), Min:97.3 F (36.3 C), Max:98.1 F (36.7 C) Recent Labs 01/06/24 0642 01/06/24 15201/06/24195801/07/24 0807 POCGLU 131* 138* 189* 100 I/O (24Hr): Intake/Output Summary (Last 24 hours) at 01/07/2024 0828 Last data filed at 01/07/2024 0500 Gross per 24 hour Intake 2150 ml Output 910 ml Net 1240 ml Labs: Hematology: Recent Labs 01/06/24 1442 01/06/24 1611 WBC 7.8 8.7 RBC 3.56* 3.80* HGB 9.9* 10.5* HCT 32.5* 35.5* MCV 91.3 93.4 MCH 27.8 27.6 MCHC 30.5 29.6 RDW 15.8* 15.9* PLT 221 239 MPV 10.0 9.8 Chemistry: Recent Labs 01/07/24 0553 MG 2.4 PHOS 4.2 Recent Labs 01/06/24 0642 01/06/24 1521 01/06/24195801/07/24 0807 POCGLU 131* 138* 189* 100 ABG:No results found for: POCPH , PHART , PH , POCPCO2 , FXK0CUG , PCO2 , POCPO2 , PO2ART , PO2 , POCHCO3 , DIT6BZH , HCO3 , NBEA , PBEA , BEART , BE , THGBART , THB , QAX3OBA , AJPF6XCF , K4CBKBPS , O2SAT , FIO2 No results found for: SPECIAL Lab Results Component Value Date/Time CULTURE NO SIGNIFICANT GROWTH 01/01/2024 11:59 AM Radiology: No results found. 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 Summary of shift: pt had an uneventful night, VSS. All three site DCI, groin site dressing took offat 0600, including arm boards taken off and olivares taken out. Pt tolerated getting up to chair well.Electronic Heat Seal Operator had to increase O2 to 4L d/t decrease while sleeping. Was able to wean down to 3L NC. Vitals: Vitals: 01/07/24 0431 01/07/24 0500 01/07/24 0600 01/07/24 0615 BP: 108/71 100/66 Pulse: 78 77 72 Resp: 18 15 22 Temp: TempSrc: SpO2: 97% 91% 95% 94% Weight: Height: I&O: Intake/Output Summary (Last 24 hours) at 01/07/2024 0621 Last data filed at 01/07/2024 0500 Gross per 24 hour Intake 2150 ml Output 910 ml Net 1240 ml Resp Status: 3L NC Ventilator Settings: / / / Critical Care IV infusions: lactated ringers Stopped (01/07/24 0600) sodium chloride dextrose LDA: Peripheral IV 01/06/24 Forearm (Active) Number of days: 0 Peripheral IV 01/06/24 Left Wrist (Active) Number of days: 0 Incision 01/06/24 Groin Right (Active) Number of days: 0 Incision 01/06/24 Brachial Right (Active) Number of days: 0 Incision 01/06/24 Brachial Left (Active) Number of days: 1 * Carla Hanley RN - 01/06/2024 6:44 PM EST 4 Eyes Skin Assessment NAME: Krissy Owens DATE OF : 1945 The patient is being assessed for Admission I agree that at least one RN has performed a thorough Head to Toe Skin Assessment on the patient. ALL assessment sites listed below have been assessed. Areas assessed by both nurses: Head, Face, Ears, Shoulders, Back, Chest, Arms, Elbows, Hands, Sacrum. Buttock, Coccyx, Ischium, and Legs. Feet and Heels Does the Patient have a Wound? No noted wound(s) Pete Prevention initiated by RN: No Wound Care Orders initiated by RN: No Pressure Injury (Stage 3,4, Unstageable, DTI, NWPT, and Complex wounds) if present, place Wound referral order by RN under BRASS BOBBIN WINDER: No New Ostomies, if present place, Ostomy referral order under BRASS BOBBIN WINDER: No Nurse 1 eSignature: SHARE this note so that the co-signing nurse can place an eSignature Nurse 2 eSignature: * Braena Adams - 01/06/2024 6:05 PM EST Spiritual Health History and Assessment/Progress Note [facility] (P) Initial Encounter, , , Name: Krissy Owens Age: 78 y.o. 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 Support system includes: Spouse/Partner and Children Family/Friends No family/friends present Assessment and Plan of Care: Patient Interventions include: Facilitated expression of thoughts and feelings and Affirmed coping skills/support systems Family/Friends Interventions include: No family/friends present Patient Plan of Care: Spiritual Care available upon further referral Family/Friends Plan of Care: No family/friends present * Jarrod Perry RN - 01/06/2024 3:46 PM EST Pt admitted to room 2026 from PACU post Op endoleak repair w Dr. Mills. Telemetry placed on pt vitals taken. Educated on restrictions and plan of care. LR infusing. Rt groin site clean dry intact island dressing, no swelling or drainage. Rt Brachial insertion site is bruised soft and oozing very slowly. Lt Brachial is bruised and soft, no oozing. Bilat Arm boards to stay on until 0600 tomorrow. [facility] Note Date & [id number] NotePatient Outreach (COVAMN) KRISSY OWENS ([id number]) 1945 F Date Time Provider Department 03/30/20 KAREN KOHLI During your visit today, we recorded the following information about you: Allergies As of Date: 03/30/2020 (No Known Allergies) Date Reviewed: 07/28/2018 Reviewed by: Carla Pavon - Fully Assessed Order(s):SARS-COVID VACCINE 1ST DOSE APPT [[id number]] Order #: [id number] FUTURE Prescriptions as of 03/30/2020 Sig: METFORMIN 500 MG TABLET Take 500 mg by mouth daily wi* ASPIRIN ORAL Take by mouth. TRIAMTERENE 37.5 MG-HYDROCHLO* Take 1 capsule by mouth once * SIMVASTATIN 20 MG TABLET VITAMIN D3 ORAL Take 1 tablet by mouth once d* SERTRALINE 50 MG TABLET Take 1 tablet by mouth once d* CETIRIZINE 10 MG TABLET Take 1 tablet by mouth once d* Problem List As Of Date 03/30/2020 Noted Resolved Malignant neoplasm of corpus uteri, except isth*04/05/2012 06/05/2016 Endometrial cancer (HCC) [C54.1] 06/05/2016 Letter Text Encounter Status:Closed by OSMAR CORDERO on 04/03/20[facility] Evaluation note Note Date & TypeNoteFacilityEvaluation noteNo assessment information available [facility] Work Phone: Evaluation note Note Date & TypeNoteFacilityEvaluation note* Diagnosis History of AAA (abdominal aortic aneurysm) repair Other postprocedural status documented in this encounter [facility] Evaluation note Note Date & TypeNoteFacilityEvaluation note* Diagnosis Pre-op testing Preoperative examination, unspecified documented in this encounter [facility] Evaluation note Note Date & TypeNoteFacilityEvaluation note* Diagnosis 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)- Primary 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) documented in this encounter [facility] Summary Purpose Family History No Family History Records FoundNo Family History Records FoundNo Family History Records FoundNo Family History Records FoundNo Family History Records FoundNo Family History Records FoundNo Family History Records Found Advance Directives No Advanced Directives Records Found Advance Directive Response Recorded Date/ Time Advance Directives No June 02 9:06am Advance Directive Response Recorded Date/ Time Advance Directives No June 02 10:06am Code StatusDate ActivatedDate InactivatedCommentsFull Code01/01/2022 4:11 PM 01/02/2022 5:54 PMNameRelationshipHealthcare Agent RelationshipCommunication [facility] Decision Maker* Date ActivatedDate JaaolfdenvjTlcbdfsn34/22/2022 4:11 PM01/02/2022 5:54 PMName RelationshipHealthcare Agent RelationshipCommunicationWijose [facility] Primary Decision Maker* Date ActivatedDate GaokpgagxqlZgigwihv22/26/2024 3:46 PMDate ActivatedDate YngcphjokhpJnrpgqks28/22/2022 4:11 PM01/02/2022 5:54 PMNameRelationship Healthcare Agent RelationshipCommunicationWijose [facility] Decision Maker* Hospital Course Note MR#: [id number] [facility] Pt. Name: Krissy Owens Admitted: 11/12/2017 Discharged: 11/17/2017 Date of : 1945 Physician: Paul Last M.D. DISCHARGE SUMMARY HOSPITAL COURSE: This patient was admitted on November 13 for da Melonie assisted LAKHWINDER takedown for type 2 endoleak. Urology was consulted for left ureteral stent. They put the cath in and then we removed the ureteral stent during the procedure. The procedure was da Melonie assisted LAKHWINDER takedown. The patient did well after the procedure. She was supposed to be discharged on November 16, 2017. Upon removing the nasal cannula, the patient had some episodes of desatting. Respiratory team was consulted. They diagnosed her with obstructive sleep apnea. The patient refused CPAP and BiPAP at night. Respiratory team had evaluated her for the need of O2 at home and the patient passed without the need of O2 at home. She will follow up with Dr. Last in 10 days and follow up with Pulmonary team in 2 w (more content not included)... Note MR#: [id number] [facility] Pt. Name: Krissy Owens Admitted: 06/17/2018 Discharged: 06/19/2018 Date of : 1945 Physician: Paul Last M.D. DISCHARGE SUMMARY PRIMARY DIAGNOSIS: Abdominal aortic aneurysm, status post TAVR, who was admitted with endoleak type 2. PROCEDURE PERFORMED DURING ADMISSION: Right femoral open access, abdominal aortogram, redo aorto-aortic graft using Endurant cuff 49 x 28 x 28 with EndoAnchor APTUS. HISTORY OF PRESENT ILLNESS AND BRIEF HOSPITAL COURSE: This is a 73-year-old female patient, who had an abdominal aortic aneurysm rupture back in 2016. She underwent an emergent Aortoiliac stent graft with a fem-fem bypass. Subsequently, the patient developed type 2 endoleak for which she underwent robotic-assisted inferior mesenteric artery and lumbar artery ligation. Unfortunately, the patient recently developed resistant symptoms and resistant increase in the size of the proximal aneurysm for which she was offered a semi (more content not included)... Chief Complaint and Reason for Visit Chief Complaint I10 E78.0 E55.9 E11. 9 Z13.296 Chief Complaint renal insufficiency Additional Source Comments INFORMATION SOURCE (unrecogn ized section and content) DATE CREATED AUTHOR 09/18/2018 [facility] DATE CREATED AUTHOR AUTHOR'S ORGANIZ ATION 03/26/2021 [facility] DATE CREATED AUTHOR AUTHOR'S ORGANIZ ATION 01/10/2022 [facility] DATE CREATED AUTHOR AUTHOR'S ORGANIZ ATION 07/19/2022 [facility] DATE CREATED AUTHOR AUTHOR'S ORGANIZ ATION 01/08/2024 [facility] DATE CREATED AUTHOR AUTHOR'S ORGANIZ ATION 01/11/2024 [facility] DATE CREATED AUTHOR AUTHOR'S ORGANIZ ATION 08/19/2024 [facility] Care Teams (unrecognized sec tion and content) Team Status: Active Member Role Status Dates Amie Ag MD Primary Care Provider Active Team Status: Inactive Member Role Status Dates Amie Ag MD Primary Care Provider, Attending Daisy cadet Active Team MemberRelationshipSpecialtyStart DateEnd Date Amie Ag MD [address] [place] [address] PCP - [facility]12/24/21Team MemberRelationshipSpecialtyStart Date End Date Amie Ag MD [facility] [place] [address] PCP - [facility]12/24/21Team MemberRelationshipSpecialtyStart Date End Date Amie Ag MD [facility] [place] [address] PCP - [facility]12/24/21 Goals (unrecognized section and content) Goals may be documented in a n alternate sectionGoals may be documented in an alternate section Reason for Visit (unrecogniz ed section and content) SpecialtyDiagnoses / ProceduresReferred By ContactReferred To ContactRadiology Diagnoses History of AAA (abdominal aortic aneurysm) repair Procedures CTA ABDOMEN PELVIS W WO CONTRAST CTA ABDOMEN PELVIS W CONTRAST Bill Mills MD [address] [place] [address] Referral IDStatusReasonStart DateExpiration DateVisits RequestedVisits [id number] / Procedures Referred By ContactReferred To Contact Diagnoses Mechanical breakdown of aortic graft, initial encounter (HCC) Mechanical breakdown of aortic graft, initial encounter (HCC) [T82.310A] Procedures IL EVASC RPR DPLMNT AORTO-AORTIC NDGFT RPT IL EVASC RPR DTA EXP COVERAGE W/O ART ORIGIN PLACEMENT AORTIC EXTENTION CUFF WITH SNORKELING OF RENAL ARTERY AND POSSIBLE SMA PLACEMENT AORTIC EXTENTION CUFF WITH SNORKELING OF RENAL ARTERY AND POSSIBLE SMA Bill Mills MD [address] [place] [address] [facility] [address] [place] [address] Referral IDStatusReasonStart DateExpiration DateVisits RequestedVisits [id number] Scheduled Active and Recently Administ ered Medications (unrecognized section and content) Medication Order albuterol (PROVENTIL) (2.5 MG/3ML) 0.083% nebulizer solution 2.5 mg (COMPLETED) 2.5 mg, Nebulization, ONCE, 1 dose, On Fri01/07/24 at 1300, Initiate RT Bronchodilator Protocol: No * 1306 (Given - Provider: Kristi Rios RCP) aspirin EC tablet 81 mg 81 mg, Oral, DAILY, First dose on Fri01/06/24 at 1615, Until Discontinued, Do not crush or break.,Post-op * 1750 (Given - Provider: Jarrod Perry RN) * 0745 (Given - Provider: Carla Hanley, PAL) atorvastatin (LIPITOR) tablet 10 mg 10 mg, Oral, DAILY, First dose on Fri01/06/24 at 1615, Until Discontinued, Substituted for Simvastatin (ZOCOR). * 1750 (Given - Provider: Jarrod Perry RN) * 0745 (Given - Provider: Carla Hanley, PAL) ceFAZolin (ANCEF) 2000 mg in 20 mL IV syringe (COMPLETED) 2,000 mg, IntraVENous, ONCE, On Fri01/06/24 at 0730, For 1 dose, Administer over 5 mins., Pre-op (day of surgery), STAT * 0955 (Given - Provider: Izabela Stone, PLANT PHYSIOLOGY TEACHER - ORACLE FUSION DEVELOPER) ceFAZolin (ANCEF) 2000 mg in 20 mL IV syringe (COMPLETED) 2,000 mg, IntraVENous, Every 8 hours, First dose on Fri01/06/24 at 1700, For 2 doses, Administer over 5 mins. * 1623 (Given - Provider: Jarrod Perry RN) * 0109 (Given - Provider: Carla Mcbride RN) cetirizine (ZYRTEC) tablet 10 mg 10 mg, Oral, DAILY, First dose on Fri01/06/24 at 1615, Until Discontinued * 1750 (Given - Provider: Jarrod Perry RN) * 0745 (Given - Provider: Carla Hanley RN) insulin lispro (HUMALOG,ADMELOG) injection vial 0-4 Units 0-4 Units, SubCUTAneous, 4 TIMES DAILY BEFORE MEALS & NIGHTLY, First dose on Fri01/06/24 at 2100, Until Discontinued, Corrective Low Dose Algorithm Glucose: Dose: 70-179 No Insulin 180-249 1Unit 250-299 2 Units 300-349 3 Units Over 349 4 Units and notify physician Administer as soon as possible within 60 minutes of last blood glucose check * 2004 (Given - Provider: Carla Mcbride RN - Comment: bs 189) * 0816 (Not Given - Provider: Carla Hanley RN - Reason: Order parameters not met) * 1356 (Not Given - Provider: Carla Hanley RN - Reason: Order parameters not met) * 1700 (Due) * 2100 (Due) sertraline (ZOLOFT) tablet 50 mg 50 mg, Oral, DAILY, First dose on Fri01/06/24 at 1615, Until Discontinued * 1750 (Given - Provider: Jarrod Perry RN) * 0745 (Given - Provider: Carla Hanley RN) sodium chloride flush 0.9 % injection 5-40 mL 5-40 mL, IntraVENous, EVERY 12 HOURS SCHEDULED (2 times per day), First dose on Fri01/06/24 at 2100, Until Discontinued, For Line Patency: Peripheral IV = 5 mL; Midline or Central Line = 10 mL/lumen. If following IV push medication, administer flush at same rate as the IV push. Flush volume is determined by type of infusion therapy being given. For non-viscous solutions use: Peripheral IV = 5 mLMidline or Central Line = 10 mL/lumen For viscous solutions (i.e. blood components, parenteral nutrition, contrast media, or after obtaining blood sample) use: Peripheral IV = 10 mL Midline or Central Line = 20 mL/lumen, Post-op * 2004 (Not Given - Provider: Carla Mcbride, RN - Reason: IV Fluid Infusing) * 0745 (Given - Provider: Carla Hanley, RN) * 2100 (Due) Medication Order// lactated ringers infusion IntraVENous, at 125 mL/hr, CONTINUOUS, Starting on Fri01/06/24 at 1615, Post-op * 1551 (New Bag - Provider: Jarrod Perry, RN) * 2332 (New Bag - Provider: Kavitha Retana, RN) * 0600 (Stopped - Provider: Carla Mcbride RN) Medication Order// 0.9 % sodium chloride infusion IntraVENous, at 5-250 mL/hr, PRN, if patient receiving piggyback infusions and maintenance fluids are not ordered OR KVO fluids to protect IV site / prevent frequent line interruptions/ long duration, Starting on Fri01/06/24 at 1546, For piggyback infusion, administer at same rate as piggyback fora total of 25 mL. Enter 25 mL into dose field and piggyback rate into rate field of order. If piggyback is infusing at a rate less than 100 mL/hr, enter 25 mL into dose field and 100 mL/hr into rate field of order. For KVO fluids, enter rate of 20 mL/hr or less into rate field of order., Post-op dextrose 10 % infusion IntraVENous, at 100 mL/hr, CONTINUOUS PRN, if blood glucose remains LESS THAN 70 mg/dL after 2 dextrose 10% intravenous boluses or administration of glucagon, Starting on Fri01/06/24 at 1720, If blood glucose fails to stabilize after 2 dextrose 10% intravenous boluses or glucagon administration, start dextrose 10% infusion at 100 mL/hour and repeat blood glucose at 30 and 60 minutes. If blood glucose is GREATER THAN 70 mg/dL after 60 minutes, discontinue dextrose 10% infusion. dextrose bolus 10% 125 mL(Linked Group 1) 125 mL, IntraVENous, at 937.5 mL/hr, Administer over 8 Minutes, PRN, Other, Blood glucose 40 - 69 mg/dL and patient NOT ALERT or NPO, Starting on Fri01/06/24 at 1720, Repeat blood glucose in 15 minutes. If blood glucose remains LESS THAN 70 mg/dL, repeat treatment and recheck blood glucose in 15 minutes x 2. If using glycemic management system, dose as instructed per system. If blood glucose remains LESS THAN 70 mg/dL after 2 intravenous boluses start dextrose 10% at 100 mL/hour and notify provider. dextrose bolus 10% 250 mL(Linked Group 1) 250 mL, IntraVENous, at 937.5 mL/hr, Administer over 16 Minutes, PRN, Other, Blood glucose LESS THAN 40 mg/dL and patient NOT ALERT or NPO, Starting on Fri01/06/24 at 1720, Repeat blood glucose in 15 minutes. If blood glucose remains LESS THAN 70 mg/dL, repeat treatment and recheck blood glucose in 15 minutes x 2. If using glycemic management system, dose as instructed per system. If blood glucose remains LESS THAN 70 mg/dL after 2 intravenous boluses start dextrose 10% at 100 mL/hour and notify provider. gelatin adsorbable (GELFOAM) sponge (CANCELED) PRN, Starting on Fri01/06/24 at 1121, Intra-op * 1121 (Given - Provider: Bill Mills MD - Comment: OPERATIVE SITESSOAKED IN THROMBIN) glucagon injection 1 mg 1 mg, SubCUTAneous, PRN, Starting on Fri01/06/24 at 1720, Until Discontinued, Low blood sugar, Blood glucose LESS THAN 70 mg/dL and patient NOT ALERT or NPO and does not have IV access., After administration, attempt intravenous access and start dextrose 10% at 100 mL/hr. Repeat blood glucose in 15 minutes x 2 and notify provider. Reconstitute powder for injection by adding 1 mL of pastry mixer-supplied sterile diluent or sterile water for injection to a vial containing 1 mg of the drug, to provide solutions containing 1 mg/mL. Shake vial gently to dissolve. glucose chewable tablet 16 g 16 g (4 tablet), Oral, PRN, Starting on Fri01/06/24 at 1720, Until Discontinued, Low blood sugar, If blood glucose is LESS THAN 70 mg/dL and patient is alert and tolerating oral. Give 4 tablets (16g) Repeat blood glucose in 15 minutes. If blood glucose is LESS THAN 70 mg/dL, repeat treatment and re check blood glucose in 15 minutes x 2. If blood glucose remains LESS THAN 70 mg/dL, notify provider. hydrALAZINE (APRESOLINE) injection 10 mg 10 mg, IntraVENous, EVERY 6 HOURS PRN, Starting on Fri01/06/24 at 1714, Until Discontinued, SBP > 170 iodixanol (VISIPAQUE) 320 MG/ML injection (CANCELED) PRN, Starting on Fri01/06/24 at 1126, Until Fri01/06/24 at 1407, Intra-op * 1126 (Given - Provider: Bill Mills MD - Comment: 50ML OF VISIPAQUE MIXED WITH 50ML OF HEP SALINE FOR POWER INJECTOR) * 1129 (Given - Provider: Bill Mills MD - Comment: 50ML PLACED ON STERILE BACK TABLE) magnesium sulfate 1000 mg in dextrose 5% 100 mL IVPB 1,000 mg, IntraVENous, at 100 mL/hr, Administer over 1 Hours, PRN, Other, Per IV Magnesium Replacement Protocol, Starting on Fri01/06/24 at 1546, Mg Lab Replacement Action 1.4-1.6 1 gram IVPB x 2 doses (2 gram Total) 1.0-1.3 1 gram IVPB x 4 doses (4 gram Total) <1.0 CALL PHYSICIAN and 1 gram IVPB x 4 doses (4 gram Total) Infuse at 1 gram/hr Repeat Mag level next AM Protocol not for use in Patients with CrCl<30ml/min, Post-op morphine (PF) injection 2 mg(Linked Group 2) 2 mg, IntraVENous, EVERY 2 HOURS PRN, Starting on Fri01/06/24 at 1546, Until Discontinued, Pain Moderate (4-6), If oral and IV narcotics ordered, use oral first and only use IV if oral is ineffective or cannot take oral. Do Not give oral and IV within 1 hour of each other unless specifically ordered., Post-op morphine sulfate (PF) injection 4 mg(Linked Group 2) 4 mg, IntraVENous, EVERY 2 HOURS PRN, Starting on Fri01/06/24 at 1546, Until Discontinued, Pain Severe (7-10), If oral and IV narcotics ordered, use oral first and only use IV if oral is ineffectiveor cannot take oral. Do Not give oral and IV within 1 hour of each other unless specifically ordered., Post-op potassium bicarb-citric acid (EFFER-K) effervescent tablet 40 mEq(Linked Group 3) 40 mEq, Oral, PRN, Starting on Fri01/06/24 at 1546, Until Discontinued, Per Potassium Replacement Protocol, Administer as alternative if patient unable to tolerate oral tablet. K Lab Replacement Action 3.1 to 3.5 40 mEq ORAL x 1 Under 3.1 Refer to IV replacement protocol Recheck K level in AM. Protocol not for use in patients with CrCl less than 30 mL/min. Do not chew or crush. Dissolve flavoredtablets completely in 3 to 4 ounces of cold water; unflavored tablets may be dissolved in 3 to 4 ounces of cold juice. Patient to sip slowly over a 5 to 10 minute period. May further dilute if GI adverse effects occur., Post-op potassium chloride (KLOR-CON M) extended release tablet 40 mEq(Linked Group 3) 40 mEq, Oral, PRN, Starting on Fri01/06/24 at 1546, Until Discontinued, Potassium Replacement, Maygive alternative linked oral order (ordered as effervescent, packet, or liquid solution) if patientunable to tolerate tablet. K Lab Replacement Action 3.1 to 3.5 40 mEq ORAL x 1 Under 3.1 Refer to IV replacement protocol Recheck K level in AM. Protocol not for use in patients with CrCl less than 30 mL/min. Do not crush, chew, or suck on tablet. Tablet may also be broken in half and each half swallowed separately., Post-op potassium chloride 10 mEq/100 mL IVPB (Peripheral Line)(Linked Group 3) 10 mEq, IntraVENous, PRN, Starting on Fri01/06/24 at 1546, Until Discontinued, at 100 mL/hr, Potassium Replacement, K Lab Replacement Action 2.7 to 3.0 10 mEq IVPB x 6 doses (60 mEq Total) Under 2.7CALL PROVIDER and administer 10 mEq IVPB x 6 doses (60 mEq Total) Infuse at 10 mEq/hr. Repeat Potassium lab 1 hour after final administration. Protocol not for use in patients with CrCl less than 30 m L/min., Post-op sod chloride IRR soln 0.9 % 1,000 mL with heparin (porcine) 10,000 Units (CANCELED) PRN, Starting on Fri01/06/24 at 1123, Intra-op * 1123 (Given - Provider: Bill Mills MD - Comment: PLACED ON BACK TABLE) * 1124 (Given - Provider: Bill Mills MD - Comment: BACK HANGING AT END OF TABLE) sod chloride IRR soln 0.9 % 1,000 mL with heparin (porcine) 2,000 Units (CANCELED) PRN, Starting on Fri01/06/24 at 1125, Intra-op * 1125 (Given - Provider: Bill Mills MD - Comment: MIXED 50ML OF HEP SALINE WITH 50ML OF VISIPAQUE FOR POWER INJECTOR) sodium chloride flush 0.9 % injection 5-40 mL 5-40 mL, IntraVENous, PRN, Starting on Fri01/06/24 at 1546, Until Discontinued, Line Care, After every IV line use, For Line Patency: Peripheral IV = 5 mL; Midline or Central Line = 10 mL/lumen. If following IV push medication, administer flush at same rate as the IV push. Flush volume is determined by type of infusion therapy being given. For non-viscous solutions use: Peripheral IV = 5 mL Midline or Central Line = 10 mL/lumen For viscous solutions (i.e. blood components, parenteral nutrition, contrast media, or after obtaining blood sample) use: Peripheral IV = 10 mL Midline or Central Line = 20 mL/lumen, Post-op thrombin spray (CANCELED) PRN, Starting on Fri01/06/24 at 1122, Intra-op * 1122 (Given - Provider: Bill Mills MD - Comment: OPERATIVE SITES) Order Group 1: dextrose bolus 10% 125 mLJump to med 125 mL, IntraVENous, at 937.5 mL/hr, Administer over 8 Minutes, PRN, Other, Blood glucose 40 - 69 mg/dL and patient NOT ALERT or NPO, Starting on Fri01/06/24 at 1720, Repeat blood glucose in 15 minutes. If blood glucose remains LESS THAN 70 mg/dL, repeat treatment and recheck blood glucose in 15 minutes x 2. If using glycemic management system, dose as instructed per system. If blood glucose remains LESS THAN 70 mg/dL after 2 intravenous boluses start dextrose 10% at 100 mL/hour and notify provider. Or dextrose bolus 10% 250 mLJump to med 250 mL, IntraVENous, at 937.5 mL/hr, Administer over 16 Minutes, PRN, Other, Blood glucose LESS THAN 40 mg/dL and patient NOT ALERT or NPO, Starting on Fri01/06/24 at 1720, Repeat blood glucose in 15 minutes. If blood glucose remains LESS THAN 70 mg/dL, repeat treatment and recheck blood glucose in 15 minutes x 2. If using glycemic management system, dose as instructed per system. If blood glucose remains LESS THAN 70 mg/dL after 2 intravenous boluses start dextrose 10% at 100 mL/hour and notify provider. Group 2: morphine (PF) injection 2 mgJump to med 2 mg, IntraVENous, EVERY 2 HOURS PRN, Starting on Fri01/06/24 at 1546, Until Discontinued, Pain Moderate (4-6), If oral and IV narcotics ordered, use oral first and only use IV if oral is ineffective or cannot take oral. Do Not give oral and IV within 1 hour of each other unless specifically ordered., Post-op Or morphine sulfate (PF) injection 4 mgJump to med 4 mg, IntraVENous, EVERY 2 HOURS PRN, Starting on Fri01/06/24 at 1546, Until Discontinued, Pain Severe (7-10), If oral and IV narcotics ordered, use oral first and only use IV if oral is ineffectiveor cannot take oral. Do Not give oral and IV within 1 hour of each other unless specifically ordered., Post-op Group 3: potassium chloride (KLOR-CON M) extended release tablet 40 mEqJump to med 40 mEq, Oral, PRN, Starting on Fri01/06/24 at 1546, Until Discontinued, Potassium Replacement, Maygive alternative linked oral order (ordered as effervescent, packet, or liquid solution) if patientunable to tolerate tablet. K Lab Replacement Action 3.1 to 3.5 40 mEq ORAL x 1 Under 3.1 Refer to IV replacement protocol Recheck K level in AM. Protocol not for use in patients with CrCl less than 30 mL/min. Do not crush, chew, or suck on tablet. Tablet may also be broken in half and each half swallowed separately., Post-op Or potassium bicarb-citric acid (EFFER-K) effervescent tablet 40 mEqJump to med 40 mEq, Oral, PRN, Starting on Fri01/06/24 at 1546, Until Discontinued, Per Potassium Replacement Protocol, Administer as alternative if patient unable to tolerate oral tablet. K Lab Replacement Action 3.1 to 3.5 40 mEq ORAL x 1 Under 3.1 Refer to IV replacement protocol Recheck K level in AM. Protocol not for use in patients with CrCl less than 30 mL/min. Do not chew or crush. Dissolve flavoredtablets completely in 3 to 4 ounces of cold water; unflavored tablets may be dissolved in 3 to 4 ounces of cold juice. Patient to sip slowly over a 5 to 10 minute period. May further dilute if GI adverse effects occur., Post-op Or potassium chloride 10 mEq/100 mL IVPB (Peripheral Line)Jump to med 10 mEq, IntraVENous, PRN, Starting on Fri01/06/24 at 1546, Until Discontinued, at 100 mL/hr, Potassium Replacement, K Lab Replacement Action 2.7 to 3.0 10 mEq IVPB x 6 doses (60 mEq Total) Under 2.7CALL PROVIDER and administer 10 mEq IVPB x 6 doses (60 mEq Total) Infuse at 10 mEq/hr. Repeat Potassium lab 1 hour after final administration. Protocol not for use in patients with CrCl less than 30 m L/min., Post-op FOR RECORDS PERTAINING TO PATIENTS WHO ARE OR HAVE BEEN ENROLLED IN A CHEMICAL DEPENDENCY/SUBSTANCEABUSE PROGRAM, SOME INFORMATION MAY BE OMITTED. This clinical summary was aggregated from multiple sources. Caution should be exercised in using it in the provision of clinical care. This summary normalizes information from multiple sources, and as a consequence, information in this document may materially change the coding, format and clinical context of patient data. In addition, data may be omitted in some cases. CLINICAL DECISIONS SHOULD BE BASED ON THE PRIMARY CLINICAL RECORDS. [employer] provides no warranty or guarantee of the accuracy or completeness of information in this document.
--- OUTSIDE RECORDS SUMMARY | 2025-01-15 18:00 | XMS_ITS | Patient Health Record ---
Author Organization [facility] [place] Address [address] [place] [address] Care Team Providers Care Office Manager Receptionist Name Role Phone Agustin Ag MD Primary Care Provider Unavail able Colt Mills Unavailable [phone] Provider, Lab Unavailable [phone] Bagh, Imad Unavailable [phone] Allergies No Known Allergies Results Component Value Reference Range Notes CREATININE, BLD w/eGFR CKD-E PI Reviewed date:08/16/2024 03:59:32 PM Interpretation: Performing Lab:[facility], [address] [place] [address], [id number] Notes/Report: STAT PERFORMED AT: [facility] [id number] CREATININE, BLOOD 1.10 (0.52 - 1.04) MG/DL GFR by CKD-EPI50.5(60.0) ML/M1.7CTA Abdomen/Pelvis Reviewed date:08/16/2024 03:59:32 PM Interpretation: Performing Lab: Notes/Report: [place], [facility] [address] [place] [address] Name: Angel Wray : 1945 Gender: F Referring Provider: Colt Mills Exam: CTA ABD/PELVIS Exam Start: 08/16/2024 Accn: [id number] History: Abdominal aortic aneurysm. Follow-up repair. CT angiography of the abdomen and pelvis with IV contrast including 3D reformatted images: Exam is compared to the 12/03/21 CT of the abdomen and pelvis without IV contrast and the 06/30/20 CT angiography of the abdomen and pelvis. Patient was given 100 mL of Visipaque 320 IV. Dose reduction techniques were used. Findings: No enhancing lesion within the liver and no bile duct dilatation. Gallbladder is unremarkable. No abnormalities in the region of the pancreas aside from mild diffuse atrophy. Spleen is normal in size. No pleural or pericardial effusions. Small amount of scarring in the lung bases. Noenhancing lesion within the kidneys and no hydronephrosis. Small benign cyst in each kidney. Normal bowel gas pattern with moderate amount of stool in the colon. Bladder is unremarkable. Pelvic phleboliths. Uterus is absent. Mild diverticulosis, but no diverticulitis. No abnormal thickening of the gastric folds. No hiatal hernia. Spinous process hypertrophy. Lumbar curve to the left with moderate to advanced degenerative changes in the mid and lower lumbar spine. Moderate to advanced degenerative changes both hips. Abdominal aortic aneurysm with endograft. The eek aneurysm has a maximum short axis diameter of 9.5 cm on today's exam compared to 8.3 cm on the 12/03/21 CT of the abdomen and pelvis. This also has a maximum long axis diameter of 12.7 cm on today's exam compared to 10.6 cm on the prior exam. Subtle endoleak just superior to the aortic bifurcation noted on the 06/30/20 exam is not seen on today's exam. There is, however, contrast within the eek aneurysm both anterior and to the left of the graft, more so superiorly at the level of the kidneys (series 900/images 33 and 34). The superior mesenteric and celiac arteries are patent. Calcified plaque causes greater than 70% narrowing of the origin of the superior mesenteric and celiac arteries. Superior mesenteric and celiac arteries are patent. Bilateral renal arteries are patent. Patent right common iliac artery stent. Left common iliac artery stent is occluded. External and internal iliac arteries are patent. Patent bilateral common femoral arteries. Partially imaged fem-fem graft is patent. IMPRESSION: 1. Postop changes endovascular repair of an abdominal aortic aneurysm again noted. The graft through the abdominal aortic aneurysm is patent. Right common iliac artery stent is patent. Left common iliac artery stent is occluded, unchanged compared to the 06/30/20 CT angiography of the abdomen andpelvis. 2. Subtle endoleak at the right lateral margin of the graft immediately superior to the aortic bifurcation noted on the 06/30/20 CT angiography of the abdomen and pelvis is not seen on today's exam. However, there is subtle contrast within the eek aneurysm both anterior and to the left of the stent at the level of the kidneys consistent with endoleak. 3. The eek abdominal aortic aneurysm measures 12.7 x 9.5 cm on today's exam compared to 10.6 x 8.3 cm on the 12/03/21 CT of the abdomen and pelvis without IV contrast. Report confirmed by Rosalinda at Dr. Colt Mills's office at 1:20 PM, faxed at 1:20 PM, 08/16/24. Transcribed by: RANDEE GUILLERMO 08/16/2024 13:22 Sincerely, Colt Qiu MD Electronically Signed: 08/16/2024 14:16 Thank you for referring KRISSY ORTIZ to the [facility], [facility]. Imaging Center - [facility], [id number] Reason For Referral No Information Medications Medication SIG (Take, Route, Frequency, Duration) Notes Start Date End Date Status Simvastatin 20 MG Oral; Duration: 90 ActiveTriamterene-HCTZ 37.5-25 MG 1 tablet in the morning Orally Once a day; Duration: 30 days As needed prnActivemetFORMIN HCl 500 MG1 tablet with a meal Orally Once a day; Duration: 30 day(s)ActiveSertraline HCl 50 MG1 tablet Orally Once a day; Duration: 30 day(s)ActiveAspir-81ActiveCetirizine HCl 10 MG1 tablet Orally Once a day; Duration: 30 day(s)ActiveVitamin D-3Active Social History Tobacco Use: Social History Observation Description Date Details (start date - stop date) Former Smoker NA - NA Tobacco Use/Smoking Question Answer Notes Patient is a former smoker How long has it been since you last smoked?> 10 years Problems Problem Type SNOMED Code ICD Code Onset Dates Problem Status W/U Status Risk Notes Problem Occlusion and stenos is of multiple and bilateral cerebral arteries (839137313) Occlusion and stenosis of bilateral carotid arteries (I65.23) ActiveconfirmedProblemHypertension (12327439)Hypertension (I10)Activeconfirmed ProblemOcclusion and stenosis of multiple and bilateral cerebral arteries (353562944)Carotid stenosis, bilateral (I65.23)ActiveconfirmedProblemAbdominal aortic aneurysm (disorder) (279769260)AAA (abdominal aortic aneurysm) without rupture (I71.4)ActiveconfirmedProblemRuptured abdominal aortic aneurysm (28739570)Ruptured abdominal aortic aneurysm (AAA) (I71.3)ActiveconfirmedProblem Abdominal aortic aneurysm without rupture (disorder) (98822128)Abdominal aortic aneurysm, without rupture, unspecified (I71.40)Activeconfirmed Vital Signs Heart Rate 72 /min 01/20/2024 Blood pressure krfabwgsh47 mm Hg01/20/20245129Itcxow20 in12/06/2024lood pressure sqfqermt838 mm Hg01/20/20244694Usmbgc422 lbs1MI33.98 kg/m212/06/2024 Encounters Encounter Location Date Provider Diagnosis Vascular [facility] [address] [place] [address] 12/06/2024 Colt Mills Occlusion and stenosis of bilateral carotid arteries I65.23 ; History of AAA (abdominal aortic aneurysm) repair Z98.890 and Abdominal aortic aneurysm, without rupture, unspecified I71.40 Cardiology [facility] [address] [place] [address] 01/20/2024 Imad Bagh Dyspnea on exertion R06.09 ; 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 ; Hypertension I10 and Abnormal EKG R94.31 [facility] [address] [place] [address] 08/16/2024 Lab Provider Vascular [address] [place] [address]/06/2025David VicenteOcclusion and stenosis of bilateral carotid arteries I65.23 and History of AAA (abdominal aortic aneurysm) repair Z98.890 Assessments Encounter Date Diagnosis (ICD Code) Assessment Notes Treatment Notes Treatment Clinical Notes Section Notes 01/20/2024 Dyspnea on exertion (ICD-10 - R0 6.09) Stable, stress test was negative for ischemia, echo consistent with moderate aortic stenosis. 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 Follow up with vascular aqjzsxu7102/16/2024Occlusion and stenosis of bilateral carotid arteries (ICD-10 - I65.23) Doing well status post placement of proximal aortic extension cuff with bilateral renal snorkeling. CTA of the abdomen and pelvis in 6 months with a follow up appointment in the office. 02/16/2024History of AAA (abdominal aortic aneurysm) repair (ICD-10 - Z98.890) 12/06/2024Occlusion and stenosis of bilateral carotid arteries (ICD-10 - I65.23) 12/06/2024History of AAA (abdominal aortic aneurysm) repair (ICD-10 - Z98.890) 12/06/2024bdominal aortic aneurysm, without rupture, unspecified (ICD-10 - I71.40) I had a long discussion with both her and her son and given the history of previous rupture and angulation at the proximal neck combined with her advanced age, I have recommended that she be treated conservatively for now as any intervention would require placement of an extension above the renal arteries with fenestration. There comfortable with this due to her advanced age that. I have ordered a repeat CTA of the abdomen and pelvis to be done in 6 months for re-evaluation with a follow up appointment in the office. I have also encouraged her to be more proactive with her blood pressure management and fluid overload. 01/20/2024Hypertension (ICD-10 - I10)Stated that she follow up with her primary care physician who manages her /10/2024bnormal EKG (ICD-10 - R94.31) Plan Of Treatment Pending Test Test Name Order Date Carotid Duplex 09/11/2020 Carotid Duplex 06/12/2020 CTA Abdomen/Pelvis 09/11/2020 CTA Abdomen/Pelvis 09/19/2021 CTA Abdomen/Pelvis 01/02/2022 CTA Abdomen/Pelvis 09/26/2023 Future Test Test Name Order Date CTA Abdomen/Pelvis 11/11/2022 Next Appt Details Provider Name:Colt Liza araiza, 06/06/2025 09:30:00 AM, [address], [place], [address], Insurance Providers Payer Name Payer Address Payer Phone Subscriber Number Group Number Insured Name Patient Relationship to Insured Coverage Start Date Coverage End Date [place] [address] [place] [place] [address] [id number] Emily Ortiz - patient is the [id number] [place] [id number], WilliamSpouse - patient is the spouse of the [id number] 2014 Medical (General) History Medical History History ICD Code Hx ruptured AAA Carotid stenosisType II diabetesSurgical History Surgery Date(Month/Year) 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
--- OUTSIDE RECORDS SUMMARY | 2025-01-15 18:01 | XMS_ITS | Patient Health Record ---
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
[2025-01-15 18:02] LABS: SARS-CoV-2 Ag NEGATIVE (NEGATIVE)
--- OUTSIDE RECORDS SUMMARY | 2025-01-15 18:02 | XMS_ITS | Clinical Summary ---
Author Organization [facility] Address [address], [address] [place] [address] Care Team Providers Care Planer Setter Name Role Phone Agustin Ag MD Primary Care Provider + [phone] Allergies No known active allergies Medications MedicationSigDispense QuantityRefillsLast FilledStart DateEnd DateStatus sertraline (ZOLOFT) 50 MG tablet Take 1 tablet by mouth daily11/08/2021ctive cetirizine (ZYRTEC) 10 MG tablet Take 1 tablet by mouth daily03/17/2012ctive simvastatin (ZOCOR) 20 MG tablet Take 1 tablet by mouth ezvsswv7611/25/2021ctive metFORMIN (GLUCOPHAGE-XR) 500 MG extended release tablet Take 1 tablet by mouth daily (with breakfast)11/08/2021ctive aspirin 81 MG chewable tablet Take 1 tablet by mouth dailyActive vitamin D 50 MCG (1999) CAPS capsule Take 1 capsule by mouth dailyActive Active Problems ProblemNoted DateDiagnosed DateType Ia endoleak of aortic graft01/01/2022Type 2 diabetes mellitus with hyperglycemia, without long-term current use of insulin 01/01/20226933Ixhldnpryhc13/22/2022Class 2 severe obesity with serious comorbidity and body mass index (BMI) of 37.0 to 37.9 in adult01/01/2022rimary hypertension 2Other ckqgkfaewszgwf15/22/2022Renal lbadvpuiyxpct17/22/2022Endometrial cppptf1006/05/2016 Family History Medical HistoryRelationNameCommentsCancerFatherCancerSisterRelationNameStatus CommentsFatherDeceasedMotherDeceasedSister Social History Tobacco UseTypesPacks/DayYears UsedDateSmoking Tobacco: FormerCigarettes Smokeless Tobacco: Never Tobacco Cessation:Counseling Given: Not Answered Alcohol UseStandard Drinks/WeekCommentsNot Currently0 (1 standard drink = 0.6 oz pure alcohol)[facility] UtilitiesAnswerDate RecordedIn the past 12 months has the electric, gas, oil, or water company threatened to shut off services in your home?No01/06/2024Hunger Vital SignAnswerDate RecordedWithin the past 12 months, you worried that your food would run out before you got the money to buymore. Never true01/06/2024Within the past 12 months, the food you bought just didn't last and you didn't have money to get more.Never true01/06/2024RAPARE - TransportationAnswerDate RecordedIn the past 12 months, has lack of transportation kept you from medical appointments or from getting medications?No 01/06/2024In the past 12 months, has lack of transportation kept you from meetings, work, or from getting things needed for daily living?No01/06/2024 Housing Stability Vital SignAnswerDate RecordedIn the last 12 months, was there a time when you were not able to pay the mortgage or rent on time?No01/06/2024In the past 12 months, how many times have you moved where you were living?1 01/06/2024t any time in the past 12 months, were you homeless or living in a penitentiary (including now)?No01/06/2024Food InsecurityAnswerDate RecordedWithin the past 12 months, you worried that your food would run out before you got the money to buymore.Within the past 12 months, the food you bought just didn't last and you didn't have money to get more.Interpersonal Safety Domain Source: IP Abuse ScreeningAnswerDate RecordedPhysical abuseDenies 01/06/2024Verbal tvysbKbrjbd19/26/2024Emotional dvacaCqifhi39/26/2024Financial hgfjvKfxrnj15/26/2024Sexual mitayWuvbre35/26/2024CommentsNoSex and Gender InformationValueDate RecordedSex Assigned at BirthNot on fileLegal Sex Zwnsig7903/24/2012 11:43 PM ESTGender IdentityNot on fileSexual OrientationNot on file Last Filed Vital Signs Vital SignReadingTime TakenCommentsBlood Uirfbibb560/6601/07/2024 6:15 AM EST Ikufy489301/07/2024 1:07 PM RVMOzvmheredzk59.7 ??C (98 ??F)01/07/2024 12:00 PM EST Respiratory Qyty597003/08/2023 1:07 PM ESTOxygen Asmuooojrf49%01/07/2024 6:15 AM ESTInhaled Oxygen Concentration--Oeziia42.8 kg (211 lb 3.2 oz)01/07/2024 6:00 AM IWEAldeww731.6 cm (5' 4 )01/06/2024 6:28 AM ESTBody Mass Index36.25103/07/2023 6:28 AM EST Plan of Treatment Health MaintenanceDue DateLast QlqySgegcioyZblhtd56/01/1956Depression Screen 1957Diabetic Alb to Cr ratio (uACR) test2DTaP/Tdap/Td vaccine (1 - Tdap)05/11/1962Pneumococcal 50+ years Vaccine (1 of 2 - PCV)05/11/1962Shingles vaccine (1 of 2)05/11/1993DEXA (modify frequency per FRAX score)05/11/1998 Respiratory Syncytial Virus (RSV) or age 60 yrs+ (1 - 1-dose 75+ series)05/11/2018Annual Wellness Visit (Medicare)01/06/2023Flu vaccine (#1) 5COVID-19 Vaccine ( - season)2024GFR test (Diabetes, CKD 3-4, OR last GFR 15-59)/08/2024, 01/07/2024, 01/01/2024, Additional history existsHepatitis A vaccineAged OutNo longer eligible based on patient's age to complete this topicHepatitis B vaccineAged OutNo longer eligible based on patient's age to complete this topicHib vaccineAged OutNo longer eligible based on patient's age to complete this topicMeningococcal (ACWY) vaccineAged OutNo longer eligible based on patient's age to complete this topicMeningococcal B vaccineAged OutNo longer eligible based on patient's age to complete this topic Polio vaccineAged OutNo longer eligible based on patient's age to complete this topic Medical Devices ImplantedTypeAreaManufacturerDevice IdentifierShelf Expiration DateModel / Serial / LotGraft Evar L102mm [id number] Aorto Uni Il Free [employer]s Web - [id number] Implanted:Qty: 1 on 01/06/2024 [facility]EndograftsN/A: AortaMEDTRONIC USA INC-WD08/13/[id number] / [id number] / Graft Evar L93mm [id number] Cath 14fr Limb Dst Ds C [facility] - [id number] Implanted:Qty: 1 on 01/06/2024 by Colt Mills [facility] CenterEndclaremore indian hospital – claremoreaftsLeft: AortaMEDTRONIC USA INC-WD10/12/[id number] / [id number] / Stent Endoprosthesis L 39 Mm Fabiola 6 Mm Cath L 135 Cm - [id number] Implanted:Qty: 1 on 01/06/2024 by [facility]t [facility] CenterRig: RenalWL GORE AND ASSOCIATES INC-WD08/01/[id number] / [id number] / Stent Endoprosthesis L 39 Mm Fabiola 6 Mm Cath L 135 Cm - [id number] Implanted:Qty: 1 on 01/06/2024 by Colt Mills [facility] CenterLeft: RenalWL GORE AND ASSOCIATES INC-WD08/01/[id number] / [id number] / ExplantedTypeAreaManufacturerDevice IdentifierShelf Expiration DateModel / Serial / LotStent Grft Endoprosthesis L 59 Mm Fabiola 6 Mm Cath L 135 Cm Fabiola - [id number] Explanted:Qty: 1 on [facility]/06/20[facility] CenterWL G[facility] AND ASSOCIATES INC-WD03/29/[id number] / [id number] / Procedures Procedure NamePriorityDate/TimeAssociated DiagnosisCommentsBASIC METABOLIC PANEL Ryoytcb4201/07/2024 1:27 PM EST from Last 3 Months or Most Recently Relevant to Health Maintenance Insurance Advance Directives * Full Code (Latest Code Status on File) Date ActivatedDate BanccomdkjtWciundfm56/26/2024 3:46 PM01/07/2024 5:55 PM * Full Code Date ActivatedDate ZpbtrdueqtrEfvyotfq31/22/2022 4:11 PM01/02/2022 5:54 PM NameRelationshipHealthcare Agent RelationshipCommunicationWillialiat AngelCassia Regional Medical Center Primary Decision Maker* Care Teams Team MemberRelationshipSpecialtyStart DateEnd Date Agustin Ag MD [address] [place] [address] [facility] - [facility]12/24/21
[2025-01-15 18:06] LABS: INR 1.28; Partial Thromboplastin Time 34.1 sec (22.3-36.2); Prothrombin Time 13.2 sec (9.0-11.6)
[2025-01-15 18:08] LABS: Lactate/Lactic Acid 1.8 mmol/L (0.4-2.0)
[2025-01-15 18:13] LABS: Alanine Aminotransferase 48 U/L (14-59); Albumin Globulin Ratio 0.7; Albumin Level 2.7 g/dL (3.4-5.0); Alkaline Phosphatase 83 U/L (46-116); Anion Gap 14.1; Aspartate Amino Transferase 129 U/L (15-37); Blood Urea Nitrogen 46.0 mg/dL (7.0-18.0); Calcium 8.5 mg/dL (8.5-10.1); Carbon Dioxide 23.6 mmol/L (21.0-32.0); Chloride 94 mmol/L (98-107); Estimated GFR (African America 23 (>=60 mL/min/1.73m^2); Estimated GFR (Non-African Ame 19 (>=60 mL/min/1.73m^2); Globulin 4.0 g/dL; Glucose 154 mg/dL (74-106); Potassium 3.7 mmol/L (3.5-5.1); Sodium 128 mmol/L (136-145); Total Protein 6.7 g/dL (6.4-8.2)
[2025-01-15 18:19] LABS: NT Pro B Type Natriuretic Pept >35000.0 pg/mL (<=1800.0)
[2025-01-15 18:31] LABS: Glucose Urine UA NEGATIVE (NEGATIVE)
[2025-01-15 18:37] LABS: Cast Seen? NONE SEEN #/LPF (NONE SEEN); Crystals Seen? None Seen #/HPF (None Seen); Urine Culture Indicated YES-FRMC
[2025-01-15] MEDS: IPRATROPIUM/ALBUTEROL SULFATE 3 ML AMPUL.NEB IH (19:22)
[2025-01-15 19:37] LABS: Creatine Kinase 1038 U/L (26-192)
[2025-01-15] MEDS: ALBUTEROL SULFATE 2.5 MG/3 ML VIAL NEB IH (21:38)
[2025-01-15] MEDS: METHYLPREDNISOLONE SOD SUCC PF 125 MG/2 ML VIAL IVP (21:51)
[2025-01-16 05:21] LABS: A. calcoaceticus-baumannii Cpx NOT DETECTED (NOT DETECTE); Bacteroides fragilis NOT DETECTED (NOT DETECTE); Candida auris NOT DETECTED (NOT DETECTE); Candida glabrata NOT DETECTED (NOT DETECTE); Enterobacterales NOT DETECTED (NOT DETECTE); Enterococcus faecalis NOT DETECTED (NOT DETECTE); Enterococcus faecium NOT DETECTED (NOT DETECTE); Klebsiella aerogenes NOT DETECTED (NOT DETECTE); Klebsiella pneumoniae group NOT DETECTED (NOT DETECTE); Proteus spp. NOT DETECTED (NOT DETECTE); Salmonella spp. NOT DETECTED (NOT DETECTE); Serratia marcescens NOT DETECTED (NOT DETECTE); Source BLOOD; Staphylococcus epidermidis NOT DETECTED (NOT DETECTE); Staphylococcus lugdunensis NOT DETECTED (NOT DETECTE); Stenotrophomonas maltophilia NOT DETECTED (NOT DETECTE); Streptococcus pyogenes NOT DETECTED (NOT DETECTE); Streptococcus spp. NOT DETECTED (NOT DETECTE)
[2025-01-16 06:39] LABS: Staphylococcus spp. DETECTED (NOT DETECTE); mecA/C and MREJ (MRSA) DETECTED (NOT DETECTE)
--- NOTE | 2025-01-16 06:56 | PC.NURSE ---
Positive blood culture results faxed to [facility]'s and called
== END 2025-01-16 00:01 | disposition short-term general hospital (02) ==
PROVIDERS: Personal Emergency Response Attendant; Emergency Provider Emergency Medicine; PCP Family Medicine
DX: N17.9 Acute kidney failure, unspecified (principal); M62.82 Rhabdomyolysis; I50.9 Heart failure, unspecified; R09.02 Hypoxemia; N76.4 Abscess of vulva; Z91.81 History of falling; R79.89 Other specified abnormal findings of blood chemistry; E87.1 Hypo-osmolality and hyponatremia; I71.40 Abdominal aortic aneurysm, without rupture, unspecified; D64.9 Anemia, unspecified; J43.9 Emphysema, unspecified; Z87.891 Personal history of nicotine dependence
CPT/HCPCS: 36415; 70450; 71045; 72125; 74176; 76376; 80053; 81001; 82550; 82553; 83605; 83874; 83880; 84484; 85025; 85610; 85730; 86850; 86900; 86901; 87040; 87070; 87075; 87077; 87086; 87088; 87150; 87186; 87804; 87811; 93005; 94640; 96361; 96374; 99285; G0328; J2919